=== PATIENT | female | born 1970 | race Caucasian/White ===

== ENCOUNTER 2020-04-11 16:13 | Outpatient (REF) | payer MEDICAID, SELFPAY ==
--- NOTE | 2020-04-11 16:20 | MM_ITS ---
EXAMINATION: MM SCREENING DIGITAL BREAST TOMOSYNTHESIS, BILATERAL CLINICAL INFORMATION: Screening. Asymptomatic. The lifetime risk of breast cancer based on the Tyrer-Cuzick Model is 15%. COMPARISON: Mammography: 03/10/2017, 02/12/2016 TECHNIQUE: Digital breast tomosynthesis is performed in both the craniocaudal and mediolateral oblique views along with computer-aided detection (CAD). Synthesized 2D images are generated from the tomosynthesis. Additional bilateral exaggerated CC views are provided. FINDINGS: There are scattered areas of fibroglandular density (ACR BI-RADS breast composition Category b). There are no significant masses, abnormal calcifications, or other abnormalities. No significant changes. MM/MM tomosynthesis screening BI IMPRESSION: No mammographic evidence of malignancy. ASSESSMENT: BI-RADS 1: Negative RECOMMENDATION: Routine annual mammography screening. This patient's information was entered into a reminder system with a target due date for their next mammogram.
== END 2020-04-11 16:14 | disposition home or self-care (01) ==
LOC: HO.MAMMO 16:13
PROVIDERS: Visit Provider General Practice
DX: Z12.31 Encounter for screening mammogram for malignant neoplasm of breast (principal)
CPT/HCPCS: 77063; 77067

== ENCOUNTER 2020-10-29 17:23 | Inpatient (IN) | payer MEDICAID, SELFPAY ==
--- NOTE | ~2020-10-29 | CT_ITS ---
EXAMINATION: CT HEAD WITHOUT CONTRAST CLINICAL INFORMATION: Altered mental status. Question overdose. COMPARISON: CT head dated 02/11/2019. TECHNIQUE: Contiguous axial imaging was performed from the skull base to vertex without intravenous administration of contrast. This CT examination was performed using dose optimization techniques as appropriate, variously including the following: *Automated exposure control. *Adjustment of mA and/or kV according to patient size (this includes techniques or standardized protocols for targeted exams where dose is matched to indication/reason for exam; i.e. extremities or head). *Use of iterative reconstruction technique. DLP: 559 mGy-cm FINDINGS: No acute intracranial hemorrhage. There is new loss of douglas-white differentiation with parenchymal hypoattenuation throughout the right cerebellum, not seen on the prior examination. Findings are consistent with an age-indeterminate infarct. No abnormal mass effect or midline shift is seen. Chronic right basal ganglia lacunar infarct, unchanged. No extra-axial fluid collections are identified. The ventricles are normal in size. The osseous structures and soft tissues are normal. The mastoid air cells and visualized portions of the paranasal sinuses are well aerated. CT/CT head/brain wo con IMPRESSION: 1. New loss of douglas-white differentiation with parenchymal hypoattenuation throughout the right cerebellum, not seen on the prior examination. Findings are consistent with an age-indeterminate infarct. 2. No acute intracranial hemorrhage or mass effect. This critical result was discussed with Dr. Nash at 7:44 PM on 10/29/2020 and it was ascertained that the content and urgency of the report was understood at the time of direct communication.
--- NOTE | ~2020-10-29 | CT_ITS ---
EXAMINATION: CT ANGIOGRAM HEAD CT ANGIOGRAM NECK CLINICAL INFORMATION: Subacute cerebrovascular accident. COMPARISON: CT head from 10/29/2020. CTA head and neck from 02/13/2019. TECHNIQUE: Initial noncontrast automatic coin machine mechanic imaging of the head and neck was performed. Comparison is made with noncontrast head CT from earlier today. Test bolus sequences followed by intravenous administration 70 mL of Omnipaque 350. Helical imaging was performed in the axial plane from the aortic arch to the skull vertex. Delayed postcontrast imaging of the head was also performed. The data was processed at the ophthalmic medical technologist's workstation for generation of MIP sequences. Angled MIPs and volume rendered reformatted images were also generated at an offline 3D workstation. Stenoses are assessed in accordance with NASCET criteria unless otherwise indicated. This CT examination was performed using dose optimization techniques as appropriate, variously including the following: *Automated exposure control. *Adjustment of mA and/or kV according to patient size (this includes techniques or standardized protocols for targeted exams where dose is matched to indication/reason for exam; i.e. extremities or head). *Use of iterative reconstruction technique. DLP: 1957 mGy-cm FINDINGS: CT Head: Moderately motion degraded exam. Regions of lost funk-white matter differentiation within the right cerebellar hemisphere. There also appears to be a region of lost funk-white matter differentiation within the posterior right parietal lobe. No evidence of hemorrhagic conversion. Chronic encephalomalacia within the right hatch radiata/lentiform nucleus. A few foci of hypoattenuation in the periventricular and deep white matter are consistent with mild microangiopathy. Funk-white matter differentiation is preserved. The ventricles are normal in size and configuration. No evidence for obstructive hydrocephalus. No abnormal mass effect or midline shift. No extra-axial fluid collections. No pathologic intra-axial enhancement. No acute soft tissue or osseous abnormalities. Moderate mucosal thickening of the paranasal sinuses. Multiple prominent odontogenic enamel erosions and periapical lucencies. The mastoid air cells and middle ear cavities are clear. Mild degenerative arthropathy of the temporomandibular joints. CT Neck: There is a 1.7 cm hyperattenuating mass lesion in the superficial lobe of the left parotid gland (1.3 cm in 2019). Otherwise, the thyroid gland and remaining cervical soft tissues are within normal limits. Advanced degenerative disc disease from C4-C7 with disc-osteophyte complex formation. Facet and uncovertebral joint arthropathy leads to osseous encroachment on the neural foramina from C4-C7. CT Upper Chest: Moderate centrilobular emphysema. The visualized upper mediastinum is within normal limits. Neck CTA: Aortic Arch: Normal contour and caliber. Classic 3 vessel branching pattern of the aortic arch. Great Vessel Origins: No significant stenosis of the branch origins. Right Common Carotid Artery: No focal stenosis or occlusion. Cervical Right Internal Carotid Artery: Calcific atherosclerotic disease of the carotid bulb and proximal internal carotid artery causing less than 50% stenosis. Left Common Carotid Artery: No focal stenosis or occlusion. Cervical Left Internal Carotid Artery: Calcific atherosclerotic disease of the carotid bulb and proximal internal carotid artery causing less than 50% stenosis. Cervical Right Vertebral Artery: Co-dominant. No focal stenosis or occlusion. Cervical Left Vertebral Artery: Co-dominant. No focal stenosis or occlusion. Brain CTA: Intracranial Internal Carotid Arteries: Calcific atherosclerotic disease of the intracranial internal carotid arteries without occlusion or flow-limiting stenosis. No focal stenosis or occlusion. Right Anterior Cerebral Artery: Normal A1 segment. Normal opacification of the distal SHANTELL segments. Left Anterior Cerebral Artery: Normal A1 segment. Normal opacification of the distal SHAN[place]LL segments. Anterior Communicating Artery: Normal. Right Middle Cerebral Artery: Normal M1 segment of the MCA without focal stenosis or occlusion. Normal arborization of the distal segments. Left Middle Cerebral Artery: Normal M1 segment of the MCA without focal stenosis or occlusion. Normal arborization of the distal segments. Right Vertebral Artery: Normal V4 segment. Normal opacification of the proximal segments of the posterior inferior cerebellar artery. Left Vertebral Artery: Normal V4 segment. Normal opacification of the proximal segments of the posterior inferior cerebellar artery. Basilar Artery: Normal without focal stenosis or occlusion. Normal appearance of the proximal superior cerebellar arteries. Right Posterior Cerebral Artery: Normal P1 segment. Normal opacification of the distal SHREDDER TENDER segments. Left Posterior Cerebral Artery: The P1 segment is mildly diminutive. origin of the SHREDDER TENDER with robust opacification of the posterior communicating artery. Normal opacification of the distal SHREDDER TENDER segments. Normal opacification of the superior sagittal, straight, transverse, and sigmoid sinuses. CT/CT angio head neck stroke IMPRESSION: 1. Evolving infarcts of the right cerebellar hemisphere and posterior right parietal lobe. No evidence of hemorrhagic conversion. 2. Chronic encephalomalacia within the right hatch radiata/lentiform nucleus. Mild underlying microangiopathy. 3. CTA of the head and neck without proximal occlusion or flow-limiting stenosis. 4. 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 This lesion has increased in size compared to 2019. 5. Advanced odontogenic disease.
--- NOTE | ~2020-10-29 | XR_ITS ---
EXAMINATION: XR CHEST CLINICAL INFORMATION: Leukocytosis COMPARISON: 02/11/2019 TECHNIQUE: Frontal view of the chest was obtained. FINDINGS: No significant abnormality is noted involving the heart, lungs, mediastinum, bony thorax or soft tissues. XR/XR chest 1V IMPRESSION: Unremarkable examination.
--- NOTE | ~2020-10-29 | XR_ITS ---
EXAMINATION: XR ABDOMEN KUB CLINICAL INDICATION: Rule out lungs are metallic foreign body pre-MRI. COMPARISON: None TECHNIQUE: AP view of the abdomen. FINDINGS: There are multiple surgical mayelin seen in the lower retroperitoneum and left pelvis. No radiopaque metallic foreign body seen otherwise. No organomegaly. The bowel gas pattern appears unremarkable. No gross bony abnormality seen. XR/XR KUB IMPRESSION: There are multiple surgical mayelin in the lower retroperitoneum and left pelvis. No visible acute fracture, dislocation or subluxation seen.
[2020-10-29 17:32] VITALS: BP 158/92; PULSE 98; RESP 20; TEMP 36.4; O2SAT 95; BMI 25.0
[2020-10-29 17:35] VITALS: BP 117/87; PULSE 118; O2SAT 96
--- NOTE | 2020-10-29 17:52 | ED_ITS ---
HPI - Overdose General Chief Complaint: Overdose Stated Complaint: Overdose Time Seen by Provider: 10/29/20 17:49 Source: EMS Mode of arrival: EMS Limitations: altered mental status History of Present Illness HPI Narrative: Patient comes to emergency room by EMS. Patient was found unresponsive by the family, given 8 mg of Narcan, patient started waking up. Patient unable to answer any questions. Patient has history of crack use. I have found the scene by EMS. The mother is at bedside. States that she saw her daughter within normal limits at 07:00 this morning, patient asked the mother for 10 dollars. Then the mother so the patient prior to the patient's arrival around 17:00, at home, altered, could not wake her up and called EMS Related Data Allergies Allergy/AdvReac Type Severity Reaction Status Date / Time No Known Allergies Allergy Unverified 02/07/20 15:04 [No Known Allergies*] Review of Systems Review of Systems: Yes Unobtainable due to mental status PMFSH Past Medical History Medical History Alcoholism Cocaine dependence CVA (cerebral vascular accident) Depression Disorder of bone and articular cartilage Hx of ovarian cancer Insomnia Mixed hyperlipidemia Nasal congestion Osteopenia PAF (paroxysmal atrial fibrillation) PTSD (post-traumatic stress disorder) Tobacco abuse Social History Social History Advance Directives: No Advance Directives Information Provided: Yes Physical Exam Vital Signs: Vital Signs: Last Vital Signs Temp 99.7 F 10/29/20 22:00 Pulse 83 10/29/20 22:00 Resp 16 10/29/20 22:00 BP 127/87 10/29/20 22:00 Pulse Ox 96 10/29/20 22:00 Body Mass Index 25.0 Appearance: Alert, altered mental status, not answering any questions, disheveled Eyes: Pupils equal, round and reactive to light. ENT: Pharynx normal. Neck: Normal inspection. Neck supple. No lymph nodes noted. No crepitus CVS: Normal heart rate and rhythm. Pulses normal. Normal S1 and S2 Respiratory: No respiratory distress. Breath sounds normal. No Wheezing. No rales Abdomen: Soft and nontender. No rigidity. No distention Skin: Skin warm and dry. Normal skin color. Normal skin turgor. Extremities: No lower extremity edema. Neuro: Cranial nerves 2-12 grossly intact Course Course Course Narrative: NIH score is difficult to assess. Patient is not following any commands. Patient is awake says she is thirsty with normal speech, otherwise does not talk, does not want to answer any questions. Patient randomly moves in bed, seems to be moving all extremities. Strength cannot be evaluated as patient is not cooperating Patient is outside of the window of treatment. Patient was last seen normal at 07:00, found unconscious/overdosed at 17:00. Patient is being admitted, Dr. Sanchez accepted the patient. 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 Discussed with Dr. Sanchez. Hematology/oncology consult will be obtained in the morning MDM - Overdose Lab Data Result diagrams: 10/29/20 19:10 10/29/20 19:10 Labs: Lab Results 10/29/20 10/29/20 10/29/20 Range/Units 18:58 18:58 19:10 WBC 21.0 H (4.8-10.8) X10*3/uL RBC 4.44 (4.20-5.50) X10*6/uL Hgb 13.2 (12.0-16.0) g/dl Hct 40.1 (37-47) % MCV 90.3 (80-98) fL MCH 29.7 (27.0-33.0) pg MCHC 32.9 (31.0-35.0) g/dl RDW 14.6 (11.0-16.0) % Plt Count 292 (160-400) X10*3/uL MPV 10.6 (9.4-12.3) fL Immature Gran % (Auto) 0.8 H (0.0-0.4) % Neut % (Auto) 89.8 H (45-73) % Lymph % (Auto) 5.6 L (20-40) % [place] % (Auto) 3.6 (2-11) % Eos % (Auto) 0.0 (0-4) % Baso % (Auto) 0.2 (0-2) % Lymph # (Auto) 1.2 (1.2-4.9) X10*3/uL [place] # (Auto) 0.8 (0.1-1.2) X10*3/uL Eos # (Auto) 0.0 (0.0-0.4) X10*3/uL Baso # (Auto) 0.0 (0.0-0.2) X10*3/uL Abs Immat Gran (auto) 0.16 H (0.00-0.03) X10*3/uL Absolute Neuts (auto) 18.8 H (2.0-8.3) X10*3/uL Absolute Nucleated RBC 0.000 (0.0-0.012) X10*3/uL Nucleated RBC % (auto) 0.0 (0.0-0.2) /100WBC Sodium (135-145) mmol/L Potassium (3.3-5.1) mmol/L Chloride (96-108) mmol/L Carbon Dioxide (22-29) mmol/L Anion Gap (12-20) BUN (9-16) mg/dL Creatinine (0.5-1.4) mg/dL Estim Creat Clear Calc Estimated GFR Random Glucose (60-115) mg/dL Calcium (8.4-10.2) mg/dL Total Bilirubin (0.0-1.0) mg/dL Direct Bilirubin (0.0-0.5) mg/dL AST (5-31) U/L ALT (0-31) U/L Alkaline Phosphatase (39-117) U/L Total Protein (6.5-8.0) g/dL Albumin (3.5-5.0) g/dL Urine Color YELLOW Urine Appearance CLOUDY Urine pH 5.5 (5.0-8.0) Ur Specific [place] >= 1.030 H (1.005-1.025) Urine Protein 2+ H (NEG-TRACE) MG/DL Urine Glucose (UA) >=1000 H (NEG) MG/DL Urine Ketones NEG (NEG) MG/DL Urine Blood 3+ H (NEG) Urine Nitrite NEG (NEG) Ur Leukocyte Esterase NEG (NEG) Urine RBC 1-4 (0) /HPF Urine WBC 0 (0-4) /HPF Ur Squamous Epith Cells 1+ /LPF Ur Renal Epithelial Cell TRACE /LPF Urine Bacteria TRACE /LPF Hyaline Casts 0-2 /LPF Urine Mucus TRACE /LPF Urine Opiates Screen Not Detected (Not Detect) Ur Barbiturates Screen Not Detected (Not Detect) Ur Phencyclidine Scrn Not Detected (Not Detect) Ur Amphetamines Screen Not Detected (Not Detect) U Benzodiazepines Scrn Not Detected (Not Detect) Urine Cocaine Screen POSITIVE H (Not Detect) U Marijuana (THC) Screen POSITIVE H (Not Detect) Ethyl Alcohol mg/dL COVID-19 ([facility]) (Negative) COVID-19 Clin Com 10/29/20 10/29/20 10/29/20 Range/Units 19:10 19:10 21:47 WBC (4.8-10.8) X10*3/uL RBC (4.20-5.50) X10*6/uL Hgb (12.0-16.0) g/dl Hct (37-47) % MCV (80-98) fL MCH (27.0-33.0) pg MCHC (31.0-35.0) g/dl RDW (11.0-16.0) % Plt Count (160-400) X10*3/uL MPV (9.4-12.3) fL Immature Gran % (Auto) (0.0-0.4) % Neut % (Auto) (45-73) % Lymph % (Auto) (20-40) % [place] % (Auto) (2-11) % Eos % (Auto) (0-4) % Baso % (Auto) (0-2) % Lymph # (Auto) (1.2-4.9) X10*3/uL [place] # (Auto) (0.1-1.2) X10*3/uL Eos # (Auto) (0.0-0.4) X10*3/uL Baso # (Auto) (0.0-0.2) X10*3/uL Abs Immat Gran (auto) (0.00-0.03) X10*3/uL Absolute Neuts (auto) (2.0-8.3) X10*3/uL Absolute Nucleated RBC (0.0-0.012) X10*3/uL Nucleated RBC % (auto) (0.0-0.2) /100WBC Sodium 142 (135-145) mmol/L Potassium 4.3 (3.3-5.1) mmol/L Chloride 106 (96-108) mmol/L Carbon Dioxide 23 (22-29) mmol/L Anion Gap 17 (12-20) BUN 22 H (9-16) mg/dL Creatinine 1.40 (0.5-1.4) mg/dL Estim Creat Clear Calc 42.2 Estimated GFR 39 Random Glucose 80 (60-115) mg/dL Calcium 9.2 (8.4-10.2) mg/dL Total Bilirubin 0.3 (0.0-1.0) mg/dL Direct Bilirubin 0.2 (0.0-0.5) mg/dL AST 158 H (5-31) U/L ALT 63 H (0-31) U/L Alkaline Phosphatase 112 (39-117) U/L Total Protein 7.0 (6.5-8.0) g/dL Albumin 4.4 (3.5-5.0) g/dL Urine Color Urine Appearance Urine pH (5.0-8.0) Ur Specific [place] (1.005-1.025) Urine Protein (NEG-TRACE) MG/DL Urine Glucose (UA) (NEG) MG/DL Urine Ketones (NEG) MG/DL Urine Blood (NEG) Urine Nitrite (NEG) Ur Leukocyte Esterase (NEG) Urine RBC (0) /HPF Urine WBC (0-4) /HPF Ur Squamous Epith Cells /LPF Ur Renal Epithelial Cell /LPF Urine Bacteria /LPF Hyaline Casts /LPF Urine Mucus /LPF Urine Opiates Screen (Not Detect) Ur Barbiturates Screen (Not Detect) Ur Phencyclidine Scrn (Not Detect) Ur Amphetamines Screen (Not Detect) U Benzodiazepines Scrn (Not Detect) Urine Cocaine Screen (Not Detect) U Marijuana (THC) Screen (Not Detect) Ethyl Alcohol < 10 mg/dL COVID-19 ([facility]) Negative (Negative) COVID-19 Clin Com See Note Imaging Data CT scan - head: Radiologist's impression: INDINGS: No acute intracranial hemorrhage. There is new loss of funk-white differentiation with parenchymal hypoattenuation throughout the right cerebellum, not seen on the prior examination. Findings are consistent with an age-indeterminate infarct. No abnormal mass effect or midline shift is seen. Chronic right basal ganglia lacunar infarct, unchanged. No extra-axial fluid collections are identified. The ventricles are normal in size. The osseous structures and soft tissues are normal. The mastoid air cells and visualized portions of the paranasal sinuses are well aerated. CT/CT head/brain wo con IMPRESSION: 1. New loss of funk-white differentiation with parenchymal hypoattenuation throughout the right cerebellum, not seen on the prior examination. Findings are consistent with an age-indeterminate infarct. 2. No acute intracranial hemorrhage or mass effect. This critical result was discussed with Dr. Nash at 7:44 PM on 10/29/2020 and it was ascertained that the content and urgency of the report was understood at the time of direct communication. CTA head and neck: Radiologist's impression: CT Head: Moderately motion degraded exam. Regions of lost funk-white matter differentiation within the right cerebellar hemisphere. There also appears to be a region of lost funk-white matter differentiation within the posterior right parietal lobe. No evidence of hemorrhagic conversion. Chronic encephalomalacia within the right hatch radiata/lentiform nucleus. A few foci of hypoattenuation in the periventricular and deep white matter are consistent with mild microangiopathy. Funk-white matter differentiation is preserved. The ventricles are normal in size and configuration. No evidence for obstructive hydrocephalus. No abnormal mass effect or midline shift. No extra-axial fluid collections. No pathologic intra-axial enhancement. No acute soft tissue or osseous abnormalities. Moderate mucosal thickening of the paranasal sinuses. Multiple prominent odontogenic enamel erosions and periapical lucencies. The mastoid air cells and middle ear cavities are clear. Mild degenerative arthropathy of the temporomandibular joints. CT Neck: There is a 1.7 cm hyperattenuating mass lesion in the superficial lobe of the left parotid gland (1.3 cm in 2019). Otherwise, the thyroid gland and remaining cervical soft tissues are within normal limits. Advanced degenerative disc disease from C4-C7 with disc-osteophyte complex formation. Facet and uncovertebral joint arthropathy leads to osseous encroachment on the neural foramina from C4-C7. CT Upper Chest: Moderate centrilobular emphysema. The visualized upper mediastinum is within normal limits. Neck CTA: Aortic Arch: Normal contour and caliber. Classic 3 vessel branching pattern of the aortic arch. Great Vessel Origins: No significant stenosis of the branch origins. Right Common Carotid Artery: No focal stenosis or occlusion. Cervical Right Internal Carotid Artery: Calcific atherosclerotic disease of the carotid bulb and proximal internal carotid artery causing less than 50% stenosis. Left Common Carotid Artery: No focal stenosis or occlusion. Cervical Left Internal Carotid Artery: Calcific atherosclerotic disease of the carotid bulb and proximal internal carotid artery causing less than 50% stenosis. Cervical Right Vertebral Artery: Co-dominant. No focal stenosis or occlusion. Cervical Left Vertebral Artery: Co-dominant. No focal stenosis or occlusion. Brain CTA: Intracranial Internal Carotid Arteries: Calcific atherosclerotic disease of the intracranial internal carotid arteries without occlusion or flow-limiting stenosis. No focal stenosis or occlusion. Right Anterior Cerebral Artery: Normal A1 segment. Normal opacification of the distal SHANTELL segments. Left Anterior Cerebral Artery: Normal A1 segment. Normal opacification of the distal SHANTELL segments. Anterior Communicating Artery: Normal. Right Middle Cerebral Artery: Normal M1 segment of the MCA without focal stenosis or occlusion. Normal arborization of the distal segments. Left Middle Cerebral Artery: Normal M1 segment of the MCA without focal stenosis or occlusion. Normal arborization of the distal segments. Right Vertebral Artery: Normal V4 segment. Normal opacification of the proximal segments of the posterior inferior cerebellar artery. Left Vertebral Artery: Normal V4 segment. Normal opacification of the proximal segments of the posterior inferior cerebellar artery. Basilar Artery: Normal without focal stenosis or occlusion. Normal appearance of the proximal superior cerebellar arteries. Right Posterior Cerebral Artery: Normal P1 segment. Normal opacification of the distal TRANSPORTATION CLERK segments. Left Posterior Cerebral Artery: The P1 segment is mildly diminutive. origin of the TRANSPORTATION CLERK with robust opacification of the posterior communicating artery. Normal opacification of the distal TRANSPORTATION CLERK segments. Normal opacification of the superior sagittal, straight, transverse, and sigmoid sinuses. CT/CT angio head neck stroke IMPRESSION: 1. Evolving infarcts of the right cerebellar hemisphere and posterior right parietal lobe. No evidence of hemorrhagic conversion. 2. Chronic encephalomalacia within the right hatch radiata/lentiform nucleus. Mild underlying microangiopathy. 3. CTA of the head and neck without proximal occlusion or flow-limiting stenosis. 4. 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 This lesion has increased in size compared to 2019. 5. Advanced odontogenic disease. ECG Data Attestation: I personally reviewed and interpreted this ECG as follows: (Sinus rhythm, heart rate 79, no ST segment depression or elevation, no T-wave inversion, QTC 433) Critical Care Time Critical Care Time Total Critical Care Time: 50 Discharge Plan Discharge Clinical Impression: Acute CVA (cerebrovascular accident) Patient Disposition: Admitted As Inpatient
--- NOTE | 2020-10-29 18:32 | PC.NURSE ---
JUVENAL MERCADO AWARE OF PATIENT UNCOOPERATIVE WITH BLOOD DRAW .
[2020-10-29 18:45] VITALS: BP 144/93; PULSE 53; RESP 16; TEMP 36.5; O2SAT 99
[2020-10-29 19:07] LABS: Glucose Urine UA >=1000 MG/DL (NEG); Leukocyte Esterase Urine NEG (NEG); Nitrite Urine NEG (NEG); PH 5.5 (5.0-8.0); Specific Gravity - Urine >= 1.030 (1.005-1.025); Urine Blood 3+ (NEG); Urine Ketones NEG (NEG); Urine Protein 2+ MG/DL (NEG-TRACE)
[2020-10-29 19:08] LABS: Appearance Urine CLOUDY; Color Urine YELLOW
[2020-10-29 19:14] LABS: Bacteria Urine TRACE /LPF; Hyaline Casts Urine 0-2 /LPF; Mucus Urine TRACE /LPF; Renal Epithelial Cells Urine TRACE /LPF; Squamous Epithelial Cell Urine 1+ /LPF; WBC Urine 0 /HPF (0-4)
[2020-10-29 19:14] LABS: MANUAL DIFF FLAG NO
[2020-10-29 19:24] LABS: Basophils Percent Auto 0.2 % (0-2); Hematocrit 40.1 % (37-47); Hemoglobin 13.2 g/dl (12.0-16.0); Imm Gran Abs Auto 0.16 X10*3/uL (0.00-0.03); Imm Gran Pct Auto 0.8 % (0.0-0.4); Lymphocytes Absolute Auto 1.2 X10*3/uL (1.2-4.9); Lymphocytes Percent Auto 5.6 % (20-40); Mean Corpuscular HGB Conc 32.9 g/dl (31.0-35.0); Mean Corpuscular Hemoglobin 29.7 pg (27.0-33.0); Mean Corpuscular Volume 90.3 fL (80-98); Mean Platelet Volume 10.6 fL (9.4-12.3); Monocytes Absolute Auto 0.8 X10*3/uL (0.1-1.2); Monocytes Percent Auto 3.6 % (2-11); Neutrophils Absolute Auto 18.8 X10*3/uL (2.0-8.3); Neutrophils Percent Auto 89.8 % (45-73); Platelet Count 292 X10*3/uL (160-400); Red Blood Count 4.44 X10*6/uL (4.20-5.50); Red Cell Distribution Width 14.6 % (11.0-16.0)
[2020-10-29 19:34] LABS: Amphetamine Screen Urine Not Detected (Not Detect); Barbiturates, Urine Not Detected (Not Detect); Benzodiazepines Screen Urine Not Detected (Not Detect); Cannabinoid Screen Urine POSITIVE (Not Detect); Cocaine Screen Urine POSITIVE (Not Detect); Opiate Screen Urine Not Detected (Not Detect); Phencyclidine Screen Urine Not Detected (Not Detect)
[2020-10-29 19:41] LABS: Ethanol < 10 mg/dL
[2020-10-29 19:52] LABS: Alanine Aminotransferase 63 U/L (0-31); Albumin Level 4.4 g/dL (3.5-5.0); Alkaline Phosphatase 112 U/L (39-117); Anion Gap 17 (12-20); Aspartate Amino Transferase 158 U/L (5-31); Bilirubin Direct 0.2 mg/dL (0.0-0.5); Bilirubin Total 0.3 mg/dL (0.0-1.0); Blood Urea Nitrogen 22 mg/dL (9-16); Calcium 9.2 mg/dL (8.4-10.2); Carbon Dioxide 23 mmol/L (22-29); Chloride 106 mmol/L (96-108); Creatinine Clr Calc Pharmacy 42.2; Estimated Glomerular Filt Rate 39; Glucose Random 80 mg/dL (60-115); Potassium 4.3 mmol/L (3.3-5.1); Sodium 142 mmol/L (135-145)
--- NOTE | 2020-10-29 20:08 | PC.NURSE ---
PT WHEELED TO BR TO URINATE, PT ABLE TO STAND W/ 1 PERSON ASSIST, UNSTEADY ON FEET. PT BACK TO BED W/OUT DIFFICULTY. PT HAS NOT RESPONDED TO ANY QUESTIONS BY THIS RN SINCE ARRIVAL, WILL OCCASIONALLY MAKE CLEAR APPROPRIATE STATEMENTS BUT WILL NOT RESPOND IN KIND, WILL LOOK AT THIS RN AND MAKE EYE CONTACT BUT NO FURTHER INTERACTION. IV ESTABLIHSED, PT TO CT.
[2020-10-29] MEDS: iohexoL 350 MG/ML 100 ML INFUS..BTL IV (20:27)
--- NOTE | 2020-10-29 21:10 | ECG_ITS ---
Test Reason : NEURO Blood Pressure : / mmHG Vent. Rate : 079 BPM Atrial Rate : 079 BPM P-R Int : 144 ms QRS Dur : 080 ms QT Int : 378 ms P-R-T Axes : 072 071 053 degrees QTc Int : 433 ms Normal sinus rhythm Normal ECG When compared with ECG of 11-FEB-2019 11:37, T wave amplitude has increased in Lateral leads Referred By: Candy Nash Electronically Signed By:GOSIA CARDONA MD
[2020-10-29 22:00] VITALS: BP 127/87; PULSE 83; RESP 16; TEMP 37.6; O2SAT 96
[2020-10-29 22:30] LABS: COVID-19 Test Negative (Negative); IDNOW Serial# 9DD0AD1C
[2020-10-30] VITALS (7 sets, daily range): BP systolic 100–125; BP diastolic 52–72; PULSE 48–76; RESP 18–20; TEMP 36.4–37.2; O2SAT 92–97
--- NOTE | 2020-10-30 | ECG_ITS ---
Test Reason : ELEVATED TROP Blood Pressure : / mmHG Vent. Rate : 048 BPM Atrial Rate : 048 BPM P-R Int : 136 ms QRS Dur : 090 ms QT Int : 490 ms P-R-T Axes : 044 056 044 degrees QTc Int : 437 ms Sinus bradycardia Otherwise normal ECG When compared with ECG of 30-OCT-2020 01:40, Vent. rate has decreased BY 25 BPM Referred By: Geronimo Mcmahon Electronically Signed By:GOSIA CARDONA MD
--- NOTE | 2020-10-30 00:11 | PM.IMHP ---
History of Present Illness Date of Service: 10/30/20 Chief Complaint: Brief unresponsive episode 50-year-old female with a past medical history of hypertension, hyperlipidemia, paroxysmal AFib, history of CVA, polysubstance abuse, cocaine abuse, alcohol abuse, anxiety, depression, PTSD, tobacco dependence presented to the hospital with a chief complaint of brief unresponsive episode. Patient is a poor historian, not answering questions, follows simple commands, moves all extremities equally, patient was requesting water to the nurse, passed dysphagia screen and has been drinking water in the ER; per RN patient was able to stand up and was taken to the bathroom. Are now also reported that patient has not been answering his questions but able to understand simple commands. Reportedly as per the family patient has these episodes of not talking which usually last for some time. I spoke to the patient's mother who mentioned that patient likely has been using tracks but unsure which drug she is using. Mentioned that this morning patient was noted sleepy and later in the evening when she went to woke up the patient she was not responding subsequently EMS was called and brought her to the ER for further evaluation. Patient's mom did not report that patient mentioned any kind of chest pain lightheadedness dizziness focal weakness. Mentioned that patient usually eats less at home. Review of systems unable to obtain given above concerns. ER course: Per ER team patient does not talking well and less cooperative exam; reported that EMS gave her Narcan. Patient was briefly answering yes or no to most of the questions. U tox positive for cocaine. CT head showed right cerebellar evaluating infarct. Also noted parotid gland swelling. Last well known was around 7:00 a.m. in the morning on 10/29/2020. Patient was given aspirin. Admitted for further management. PENDING SALE TO [facility] Medical History Alcoholism Cocaine dependence CVA (cerebral vascular accident) Depression Disorder of bone and articular cartilage Hx of ovarian cancer Insomnia Mixed hyperlipidemia Nasal congestion Osteopenia PAF (paroxysmal atrial fibrillation) PTSD (post-traumatic stress disorder) Tobacco abuse Social History Household Members: Unknown / Unable to assess Housing: Unknown / Unable to assess Unable to assess alcohol history related to: Unknown and Refusing to respond Patient Tobacco Use Status: Tobacco use Unknown Substance Use Type: Crack/Cocaine and Heroin service: No Current occupational status: unemployed Meds Allergies Allergy/AdvReac Type Severity Reaction Status Date / Time No Known Allergies Allergy Unverified 02/07/20 15:04 [No Known Allergies*] Active Medications: Current Medications Generic Name Dose Route Start Last Admin Trade Name Freq PRN Reason Stop Dose Admin Acetaminophen 650 mg 10/29/20 23:39 Acetaminophen 325 Mg Tablet PO Q6H PRN Pain, Mild (Pain Scale 1-3) Aspirin 81 mg 10/30/20 09:00 Aspirin 81 Mg Tab.Chew PO DAILY [facility] Atorvastatin Calcium 80 mg 10/30/20 09:00 Atorvastatin Calcium 80 Mg Tablet PO DAILY [facility] Atorvastatin Calcium 10 mg 10/30/20 09:00 Atorvastatin Calcium 10 Mg Tablet PO DAILY [facility] Diltiazem HCl 30 mg 10/30/20 09:00 Diltiazem Hcl 30 Mg Tablet PO DAILY [facility] Protocol Fluoxetine HCl 20 mg 10/30/20 09:00 Fluoxetine Hcl 20 Mg Capsule PO DAILY [facility] Folic Acid 1 mg 10/30/20 09:00 Folic Acid 1 Mg Tablet PO DAILY [facility] Heparin Sodium (Porcine) 5,000 unit 10/29/20 23:45 Heparin Sodium,Porcine 5,000 Unit/Ml Vial SUBCUT Q8H [facility] Dextrose/Sodium Chloride 1,000 mls @ 100 mls/hr 10/29/20 23:45 D51/2ns IVCONT .Q10H [facility] Lisinopril 5 mg 10/30/20 09:00 Lisinopril 5 Mg Tablet PO DAILY [facility] Protocol Magnesium Hydroxide 30 ml 10/29/20 23:39 Milk Of Magnesia 30 Ml Oral.Susp PO DAILY PRN Constipation Quetiapine Fumarate 150 mg 10/30/20 21:00 Quetiapine Fumarate 50 Mg Tablet PO BEDTIME [facility] Risperidone 4 mg 10/30/20 09:00 Risperidone 2 Mg Tablet PO DAILY [facility] Senna 17.2 mg 10/29/20 23:39 Sennosides 8.6 Mg Tablet PO BEDTIME PRN Constipation Sodium Chloride 3 ml 10/30/20 00:00 0.9 % Sodium Chloride Flush 3 Ml Syringe IVFLUSH QSHIFT [facility] Home Medications Medication Instructions Recorded Confirmed Last Taken Type atorvastatin 1 tab PO DAILY 10/29/20 10/29/20 Unknown History diltiazem HCl 1 tab PO DAILY 10/29/20 10/29/20 Unknown History fluoxetine 1 cap PO DAILY 10/29/20 10/29/20 Unknown History folic acid 1 tab PO DAILY 10/29/20 10/29/20 Unknown History lisinopril 1 tab PO DAILY 10/29/20 10/29/20 Unknown History quetiapine 1.5 tab PO BEDTIME 10/29/20 10/29/20 Unknown History risperidone 1 tab PO DAILY 10/29/20 10/29/20 Unknown History trazodone 1.5 - 2 tab PO BEDTIME 10/29/20 10/29/20 Unknown History Physical Exam Vital Signs and Narrative: Vital Signs: Last Vital Signs Temp 99.7 F 10/29/20 22:00 Pulse 83 10/29/20 22:00 Resp 16 10/29/20 22:00 BP 127/87 10/29/20 22:00 Pulse Ox 96 10/29/20 22:00 Body Mass Index 25.0 Gen: Appears be in no acute distress HEENT: NCAT, Moist mucosa. Pulmonary: Vesicular breath sounds, fair air entry CVS: Normal S1-S2 Abdomen: BS+, Soft, Nontender Extremities: Warm well perfused Neuro: Alert and awake. Limited neurological exam. Moves all extremities equally. Follow simple commands. Unable to fall from [id number] or [id number] test. Unable to perform gait test. Results Labs CBC and Chem 7: 10/31/20 05:49 10/31/20 05:49 Labs: Laboratory Results - last 24 hr 10/29/20 10/29/20 10/29/20 18:58 18:58 19:10 MCV 90.3 MCH 29.7 MCHC 32.9 RDW 14.6 Plt Count 292 MPV 10.6 Immature Gran % (Auto) 0.8 H Neut % (Auto) 89.8 H Lymph % (Auto) 5.6 L [place] % (Auto) 3.6 Eos % (Auto) 0.0 Baso % (Auto) 0.2 Lymph # (Auto) 1.2 [place] # (Auto) 0.8 Eos # (Auto) 0.0 Baso # (Auto) 0.0 Abs Immat Gran (auto) 0.16 H Absolute Neuts (auto) 18.8 H Absolute Nucleated RBC 0.000 Nucleated RBC % (auto) 0.0 Anion Gap Estim Creat Clear Calc Estimated GFR Random Glucose Calcium Total Bilirubin Direct Bilirubin AST ALT Alkaline Phosphatase Total Protein Albumin Urine Color YELLOW Urine Appearance CLOUDY Urine pH 5.5 Ur Specific [place] >= 1.030 H Urine Protein 2+ H Urine Glucose (UA) >=1000 H Urine Ketones NEG Urine Blood 3+ H Urine Nitrite NEG Ur Leukocyte Esterase NEG Urine RBC 1-4 Urine WBC 0 Ur Squamous Epith Cells 1+ Ur Renal Epithelial Cell TRACE Urine Bacteria TRACE Hyaline Casts 0-2 Urine Mucus TRACE Urine Opiates Screen Not Detected Ur Barbiturates Screen Not Detected Ur Phencyclidine Scrn Not Detected Ur Amphetamines Screen Not Detected U Benzodiazepines Scrn Not Detected Urine Cocaine Screen POSITIVE H U Marijuana (THC) Screen POSITIVE H Ethyl Alcohol COVID-19 ([facility]) COVID-19 Clin Com 10/29/20 10/29/20 10/29/20 19:10 19:10 21:47 MCV MCH MCHC RDW Plt Count MPV Immature Gran % (Auto) Neut % (Auto) Lymph % (Auto) [place] % (Auto) Eos % (Auto) Baso % (Auto) Lymph # (Auto) [place] # (Auto) Eos # (Auto) Baso # (Auto) Abs Immat Gran (auto) Absolute Neuts (auto) Absolute Nucleated RBC Nucleated RBC % (auto) Anion Gap 17 Estim Creat Clear Calc 42.2 Estimated GFR 39 Random Glucose 80 Calcium 9.2 Total Bilirubin 0.3 Direct Bilirubin 0.2 AST 158 H ALT 63 H Alkaline Phosphatase 112 Total Protein 7.0 Albumin 4.4 Urine Color Urine Appearance Urine pH Ur Specific [place] Urine Protein Urine Glucose (UA) Urine Ketones Urine Blood Urine Nitrite Ur Leukocyte Esterase Urine RBC Urine WBC Ur Squamous Epith Cells Ur Renal Epithelial Cell Urine Bacteria Hyaline Casts Urine Mucus Urine Opiates Screen Ur Barbiturates Screen Ur Phencyclidine Scrn Ur Amphetamines Screen U Benzodiazepines Scrn Urine Cocaine Screen U Marijuana (THC) Screen Ethyl Alcohol < 10 COVID-19 ([facility]) Negative COVID-19 Clin Com See Note Imaging Radiologist's Impressions: Impressions Head CT 10/29/20 17:53 IMPRESSION: 1. New loss of douglas-white differentiation with parenchymal hypoattenuation throughout the right cerebellum, not seen on the prior examination. Findings are consistent with an age-indeterminate infarct. 2. No acute intracranial hemorrhage or mass effect. This critical result was discussed with Dr. Nash at 7:44 PM on 10/29/2020 and it was ascertained that the content and urgency of the report was understood at the time of direct communication. Chest X-Ray 10/29/20 19:45 IMPRESSION: Unremarkable examination. Head/Neck CTA 10/29/20 19:49 IMPRESSION: 1. Evolving infarcts of the right cerebellar hemisphere and posterior right parietal lobe. No evidence of hemorrhagic conversion. 2. Chronic encephalomalacia within the right hatch radiata/lentiform nucleus. Mild underlying microangiopathy. 3. CTA of the head and neck without proximal occlusion or flow-limiting stenosis. 4. 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 This lesion has increased in size compared to 2019. 5. Advanced odontogenic disease. Assessment and Plan (1) Acute CVA (cerebrovascular accident): Status: Acute 50-year-old female with a past medical history of hypertension, hyperlipidemia, history of CVA, anxiety, depression, PTSD, polysubstance abuse, alcohol abuse, cocaine dependence, paroxysmal AFib, tobacco dependence presented to the hospital with a chief complaint of brief unresponsive episode. Brief unresponsive episode: Patient is currently alert and awake. Able to move all extremities equally. Passed the dysphagia screen-drinking water in the ER. Acute cerebellar CVA: No evidence of hemorrhage on the CT scan. Patient given aspirin in the ER. Will continue aspirin statin. Patient out of the window for tPA. PT/OT/speech and swallow eval. Echocardiogram with bubble study. Neurology consult. History of paroxysmal AFib: Unclear if the patient is taking Eliquis. Last refill was in May for 30 days. Patient's mom is unsure. Cardiology consult High troponin: likely from Cocaine abuse vs Demand; pt denies chest; EKG non ischemic; Troponin 306-->513; spoke to Dr Milton; less likely candidate for Heparin drip due to acute stroke; Echo recommended. Polysubstance abuse: dairy worker consult History of hypertension/hyperlipidemia: Continue home medications. Parotid gland swelling: Concern for neoplasm. Will consult Oncology for further recommendations. DVT prophylaxis: SCD boots Code status: Full code
[2020-10-30] MEDS: Dextrose 5 % and 0.45 % NaCl 1,000 ML 100 ML IVCONT ×2 (00:35→02:23)
[2020-10-30] MEDS: Heparin Sodium,Porcine 5,000 UNIT/ML VIAL 5000 UNIT SUBCUT ×2 (00:35→09:11)
[2020-10-30 01:07] LABS: Troponin-I High Sensitivity 306.5 ng/L (<3.5-17.0)
[2020-10-30 01:53] LABS: Troponin-I High Sensitivity 513.2 ng/L (<3.5-17.0)
[2020-10-30 03:54] LABS: MANUAL DIFF FLAG NO
[2020-10-30 04:00] LABS: Basophils Percent Auto 0.1 % (0-2); Eosinophils Percent Auto 0.1 % (0-4); Hematocrit 35.6 % (37-47); Hemoglobin 11.8 g/dl (12.0-16.0); Imm Gran Abs Auto 0.06 X10*3/uL (0.00-0.03); Imm Gran Pct Auto 0.4 % (0.0-0.4); Lymphocytes Absolute Auto 2.1 X10*3/uL (1.2-4.9); Mean Corpuscular HGB Conc 33.1 g/dl (31.0-35.0); Mean Corpuscular Hemoglobin 29.8 pg (27.0-33.0); Mean Corpuscular Volume 89.9 fL (80-98); Mean Platelet Volume 10.8 fL (9.4-12.3); Monocytes Absolute Auto 0.9 X10*3/uL (0.1-1.2); Monocytes Percent Auto 6.8 % (2-11); Neutrophils Absolute Auto 10.7 X10*3/uL (2.0-8.3); Neutrophils Percent Auto 77.6 % (45-73); Platelet Count 258 X10*3/uL (160-400); Red Blood Count 3.96 X10*6/uL (4.20-5.50); Red Cell Distribution Width 14.6 % (11.0-16.0); White Blood Count 13.8 X10*3/uL (4.8-10.8)
[2020-10-30 04:25] LABS: Anion Gap 14 (12-20); Blood Urea Nitrogen 17 mg/dL (9-16); Calcium 8.9 mg/dL (8.4-10.2); Carbon Dioxide 24 mmol/L (22-29); Chloride 102 mmol/L (96-108); Creatinine Clr Calc Pharmacy 69.6; Estimated Glomerular Filt Rate > 60; Glucose Random 128 mg/dL (60-115); Potassium 3.5 mmol/L (3.3-5.1); Sodium 136 mmol/L (135-145)
[2020-10-30 04:31] LABS: Troponin-I High Sensitivity 808.8 ng/L (<3.5-17.0)
[2020-10-30 07:09] LABS: Glucose, Whole Blood 164 mg/dL (60-115)
[2020-10-30 07:25] LABS: Cholesterol 135 mg/dL; HDL Cholesterol 31 mg/dL; LDL Cholesterol Calculated 75 mg/dl; Triglycerides 147 mg/dL
--- NOTE | 2020-10-30 07:30 | CA_ITS ---
Transthoracic Echocardiogram Patient (Last, First, Middle): Cari Sánchez M Gender: Female Date of : 1970 Age: 50 Procedure Date: 10/30/2020 Procedure Type: Transthoracic Echocardiogram Location: [facility] [place] Height: 165.1 cm Weight: 68.04 kg BSA: 1.75 m2 Heart Rate: bpm BP: 115 / 63 mmHg Sheltered Workshop Worker: [facility] MD: Phill Sanchez MD [employer] Cutter: Josue Milton MD Symptoms: CVA; echo with Bubble Study Quality: Good ECG Rhythm: Sinus Conclusions: - Essentially normal study Findings Left Ventricle Normal left ventricular size, thickness, and systolic function. The visually estimated ejection fraction is between 55-60%. Diastolic function is normal for age. Right Ventricle Normal right ventricular cavity size and systolic function. Atria The left atrium is likely dilated. There is no evidence of interatrial shunt by agitated saline. The right atrium is normal in size. Aortic Valve Normal aortic valve structure and function. There is no aortic valve stenosis. There is no aortic valve regurgitation. Mitral Valve Normal mitral valve structure and function. There is trace mitral valve regurgitation. There is no mitral valve stenosis. Pulmonic Valve The pulmonic valve is likely normal. Tricuspid Valve Normal tricuspid valve structure. There is trace tricuspid valve regurgitation. The right ventricular systolic pressure is normal. The right ventricular systolic pressure is 28 mmHg. Normal right atrial pressure. There is no evidence of pulmonary hypertension. Great Vessels All visible segments of the aorta are normal in size. The pulmonary artery was not well visualized. Venous The inferior vena cava is normal in size and collapses greater than 50% with inspiration. Pericardium/Pleural There is no evidence of pericardial effusion. Prior Study Comparison No significant change compared to prior study dated: 02/12/2019. Measurements 2D Linear Measurements RVIDd: 3.54 RVIDd Index: 2.02 IVSd: 0.85 0.6-0.9/0.6-1.0 cm LVIDd: 4.97 3.9-5.3/4.2-5.9 cm LVIDd Index: 2.84 2.4-3.2/2.2-3.1 cm/m2 LVIDs: 3.47 2.0-3.6 cm LVPWd: 0.81 0.7-1.1 cm Ao Root: 2.90 2.1-3.5 cm LA Diam: 4.10 2.7-3.8/3.0-4.0 cm LAIDs Index: 2.34 1.5-2.3 cm/m2 LV Mass: 175.42 67-162/88-224 g LV Mass Index: 100.24 43-95/49-115 g/m2 LVOT Diam: 2.10 3.0+(-)1.3 cm 2D Systolic Function EF 4C: 52.70 >55% EF 2C: 61.20 >55% EF BiP: 58.40 >55% Mitral Valve MV Pk E: 1.08 MV PK A: 0.52 MV Decel Time: 299.00 E/A: 2.10 E'Lateral: 12.00 E'Medial: 9.36 E/E' Med: 11.50 E/E' Lat: 9.00 Aortic Valve AoV Pk Terrell: 1.57 AoV Mn Terrell: 1.04 AoV VTI: 0.32 AoV Pk Grad: 10.00 Aov Mn Grad: 5.00 AMOL Cont.VTI: 2.57 LVOT LVOT Pk Terrell: 1.17 LVOT Mn Terrell: 0.72 LVOT VTI: 0.24 LVOT Pk Grad: 5.00 LVOT Mn Grad: 3.00 LVOT Diam: 2.10 LVOT Area: 3.46 Diastolic Function MV Pk E: 1.08 MV Pk A: 0.52 E/A: 2.10 E'Medial: 9.36 E/E' Med: 11.50 E' Laterial: 12.00 E/E' Lat: 9.00 Tricuspid Valve TR Pk Terrell: 2.51 TR Pk Grad: 25.00 RA Press: 3.00 RVSP: 28.00 Great Vessels Aorta Ao Root-2D: 2.90 2.0-3.7 cm Ao Asc: 3.20 2.1-3.4 cm Ao Arch: 3.10 Updated in Other Vendor System with Status of Final Josue Milton MD electronically signed on 10/30/2020 3:16:13 PM with status of Final
[2020-10-30] MEDS: Atorvastatin Calcium 80 MG TABLET PO (09:11)
[2020-10-30] MEDS: FLUoxetine HCl 20 MG CAPSULE PO (09:11)
[2020-10-30] MEDS: Folic Acid 1 MG TABLET PO (09:12)
[2020-10-30] MEDS: risperiDONE 2 MG TABLET 4 MG PO (09:12)
[2020-10-30] MEDS: 0.9 % Sodium Chloride Flush 3 ML SYRINGE IVFLUSH ×2 (09:13→17:13)
--- NOTE | 2020-10-30 09:59 | HO.PM.IMPN ---
Subjective Subjective Date of Service: 10/30/20 Interval History: no residual weakness, no complaints Cardiovascular Cardiovascular: Reports no additional cardiovascular complaints Gastrointestinal Gastrointestinal: Reports no additional gastrointestinal complaints Physical Exam Vital Signs: Vital Signs: Last Vital Signs Temp 98.2 F 10/30/20 07:19 Pulse 67 10/30/20 07:19 Resp 18 10/30/20 07:19 BP 100/53 L 10/30/20 07:19 Pulse Ox 93 10/30/20 07:19 Body Mass Index 25.0 General: AO X 3, no acute distress, hard of hearing Resp: CTA bilateral CVS: S1,S2,RRR GI: soft, non tender, non distended Neuro: motor grossly intact Psych: appropriate affect Objective Data Current Medications Generic Name Dose Route Start Last Admin Trade Name Freq PRN Reason Stop Dose Admin Acetaminophen 650 mg 10/29/20 23:39 Acetaminophen 325 Mg Tablet PO Q6H PRN Pain, Mild (Pain Scale 1-3) Aspirin 81 mg 10/30/20 09:00 Aspirin 81 Mg Tab.Chew PO DAILY [facility] Atorvastatin Calcium 80 mg 10/30/20 09:00 10/30/20 09:11 Atorvastatin Calcium 80 Mg Tablet PO 80 mg DAILY [facility] Administration Fluoxetine HCl 20 mg 10/30/20 09:00 10/30/20 09:11 Fluoxetine Hcl 20 Mg Capsule PO 20 mg DAILY [facility] Administration Folic Acid 1 mg 10/30/20 09:00 10/30/20 09:12 Folic Acid 1 Mg Tablet PO 1 mg DAILY [facility] Administration Heparin Sodium (Porcine) 5,000 unit 10/29/20 23:45 10/30/20 09:11 Heparin Sodium,Porcine 5,000 Unit/Ml Vial SUBCUT 5,000 unit Q8H [facility] Administration Dextrose/Sodium Chloride 1,000 mls @ 100 mls/hr 10/29/20 23:45 10/30/20 02:23 D51/2ns IVCONT 100 mls/hr .Q10H [facility] Administration Magnesium Hydroxide 30 ml 10/29/20 23:39 Milk Of Magnesia 30 Ml Oral.Susp PO DAILY PRN Constipation Quetiapine Fumarate 150 mg 10/30/20 21:00 Quetiapine Fumarate 50 Mg Tablet PO BEDTIME [facility] Risperidone 4 mg 10/30/20 09:00 10/30/20 09:12 Risperidone 2 Mg Tablet PO 4 mg DAILY [facility] Administration Senna 17.2 mg 10/29/20 23:39 Sennosides 8.6 Mg Tablet PO BEDTIME PRN Constipation Sodium Chloride 3 ml 10/30/20 00:00 10/30/20 09:13 0.9 % Sodium Chloride Flush 3 Ml Syringe IVFLUSH 3 ml QSHIFT [facility] Administration Labs CBC & Chem 7: 10/30/20 03:49 10/30/20 03:49 Assessment and Plan (1) Acute CVA (cerebrovascular accident): Status: Acute (2) NSTEMI (non-ST elevated myocardial infarction): Status: Acute Assessment and Plan: 50F presented with ams, found to have acute CVA and NSTEMI toxic encephalopathy due to opioid overdose resolved care team eval acute right cerebellar hemisphere and posterior right parietal lobe infarcts asa, statin (increased to high potency), neuro eval, echo hold bp meds NSTEMI cva related, vs takatsubo, vs cocaine follow up cardiology, echo, repeat troponin 1.7cm left parotid mass suspicious for neoplasm oncology eval alcohol dependence CIWA, no evidence of withdrawl at this time elevated LFTS could be alcohol related check hepatitis panel pafib now sinus bradycardia unclear if taking eliquis, patient states today that she is, appears not to have filled since may 2020 will hold cardizem for permissive htn psych disorder seroquel, risperdal
[2020-10-30] MEDS: Aspirin 81 MG TAB.CHEW PO (10:10)
--- NOTE | 2020-10-30 11:03 | MHC.SLORD ---
Speech Language Pathology Order Status: Order for speech evaluation received. ENVIRONMENTAL OFFICER attempted to see patient this morning, but patient was off floor for ECHO. ENVIRONMENTAL OFFICER will return this afternoon.
[2020-10-30 11:26] LABS: Glucose, Whole Blood 112 mg/dL (60-115)
--- NOTE | 2020-10-30 11:26 | P.CONCA_ITS ---
History of Present Illness History of Present Illness Date of Service: 10/30/20 Requesting physician: Phill Sanchez Consult reason: troponin elevation Chief complaint: Unresponsive episode Narrative: I was requested to see Cari in cardiology consultation today for recurrent stroke and elevated troponin. Patient is a poor historian, she is hard of hearing, however she came to the hospital with suspected loss of consciousness. There was no reported chest pain. Urine toxicology is positive for cocaine. Patient is on Eliquis for her paroxysmal atrial fibrillation, however there is concern about compliance issue. On asking the patient she says she takes Eliquis maybe once a day. Not sure when the last dosing of it was. Her imaging shows new evidence of right cerebellar and right parietal lobe CVA. She has prior history of CVA in the past. Since admission initially she was noted to be hypertensive, however blood pressure has now in systolic 100 range. She is also bradycardic with heart rate of 47. She has prior history of bradycardia. She denies any symptoms of lightheadedness. No syncope at home. There is no reported focal neurologic deficit. She denies any chest pain at current time. Troponin noted to be rising. EKG on admission shows normal sinus rhythm with no acute ST T wave changes. Repeat EKG shows sinus bradycardia with normal EKG. Review of system is very difficult to obtain from this patient. Review of Systems Review of Systems: Yes Unobtainable due to mental status PMFSH Past Medical History Medical History Alcoholism Cocaine dependence CVA (cerebral vascular accident) Depression Disorder of bone and articular cartilage Hx of ovarian cancer Insomnia Mixed hyperlipidemia Nasal congestion Osteopenia PAF (paroxysmal atrial fibrillation) PTSD (post-traumatic stress disorder) Tobacco abuse Social History Social History Household Members: Unknown / Unable to assess Housing: Unknown / Unable to assess Unable to assess alcohol history related to: Unknown and Refusing to respond Patient Tobacco Use Status: Tobacco use Unknown Use of substances other than those prescribed or required for medical reasons: Unknown Substance Use Type: Crack/Cocaine and Heroin Last Used Substance: Unknown Advance Directives: No Advance Directives Information Provided: Yes Do you have thoughts of harming others: None Do you have a plan to hurt others: No Plan Recently lost weight without trying: Unsure Patient : No : No Poor oral hygiene: No Meds Allergies Allergy/AdvReac Type Severity Reaction Status Date / Time No Known Allergies Allergy Unverified 02/07/20 15:04 [No Known Allergies*] Active Medications: Current Medications Generic Name Dose Route Start Last Admin Trade Name Freq PRN Reason Stop Dose Admin Acetaminophen 650 mg 10/29/20 23:39 Acetaminophen 325 Mg Tablet PO Q6H PRN Pain, Mild (Pain Scale 1-3) Aspirin 81 mg 10/30/20 09:00 10/30/20 10:10 Aspirin 81 Mg Tab.Chew PO 81 mg DAILY DIANA Administration Atorvastatin Calcium 80 mg 10/30/20 09:00 10/30/20 09:11 Atorvastatin Calcium 80 Mg Tablet PO 80 mg DAILY DIANA Administration Fluoxetine HCl 20 mg 10/30/20 09:00 10/30/20 09:11 Fluoxetine Hcl 20 Mg Capsule PO 20 mg DAILY DIANA Administration Folic Acid 1 mg 10/30/20 09:00 10/30/20 09:12 Folic Acid 1 Mg Tablet PO 1 mg DAILY DIANA Administration Heparin Sodium (Porcine) 5,000 unit 10/29/20 23:45 10/30/20 09:11 Heparin Sodium,Porcine 5,000 Unit/Ml Vial SUBCUT 5,000 unit Q8H DIANA Administration Magnesium Hydroxide 30 ml 10/29/20 23:39 Milk Of Magnesia 30 Ml Oral.Susp PO DAILY PRN Constipation Quetiapine Fumarate 150 mg 10/30/20 21:00 Quetiapine Fumarate 50 Mg Tablet PO BEDTIME DIANA Risperidone 4 mg 10/30/20 09:00 10/30/20 09:12 Risperidone 2 Mg Tablet PO 4 mg DAILY DIANA Administration Senna 17.2 mg 10/29/20 23:39 Sennosides 8.6 Mg Tablet PO BEDTIME PRN Constipation Sodium Chloride 3 ml 10/30/20 00:00 10/30/20 09:13 0.9 % Sodium Chloride Flush 3 Ml Syringe IVFLUSH 3 ml QSHIFT DIANA Administration Home Medications Medication Instructions Recorded Confirmed Last Taken Type atorvastatin 1 tab PO DAILY 10/29/20 10/29/20 Unknown History diltiazem HCl 1 tab PO DAILY 10/29/20 10/29/20 Unknown History fluoxetine 1 cap PO DAILY 10/29/20 10/29/20 Unknown History folic acid 1 tab PO DAILY 10/29/20 10/29/20 Unknown History lisinopril 1 tab PO DAILY 10/29/20 10/29/20 Unknown History quetiapine 1.5 tab PO BEDTIME 10/29/20 10/29/20 Unknown History risperidone 1 tab PO DAILY 10/29/20 10/29/20 Unknown History trazodone 1.5 - 2 tab PO BEDTIME 10/29/20 10/29/20 Unknown History Physical Exam Vital Signs: Vital Signs: Last Vital Signs Temp 97.6 F 10/30/20 11:22 Pulse 48 L 10/30/20 11:22 Resp 18 10/30/20 11:22 BP 107/58 L 10/30/20 11:22 Pulse Ox 97 10/30/20 11:22 Body Mass Index 25.0 Const: General: cooperative, comfortable, no acute distress, alert and awake Nutritional Appearance: average body habitus HENMT: Head: Yes normocephalic and Yes atraumatic Neck: Neck: Yes trachea midline, Yes supple and Yes no JVD Carotids: no bruits Resp: Effort & Inspection: normal respiratory effort Auscultation: clear to auscultation bilaterally Cardio: Jugular venous distension: no JVD Palpation: normal PMI Rate: regular rate Rhythm: regular rhythm Heart sounds: S1 normal heart sound present and S2 normal heart sound present GI: Auscultation: normal bowel sounds Skin: General skin exam: no rashes or lesions noted Extrem: General: Yes no clubbing, cyanosis or edema Results Labs and Meds Result diagrams: 10/30/20 03:49 10/30/20 03:49 Lab results: Laboratory Results - last 24 hr 10/29/20 10/29/20 10/29/20 18:58 18:58 19:10 WBC 21.0 H RBC 4.44 Hgb 13.2 Hct 40.1 MCV 90.3 MCH 29.7 MCHC 32.9 RDW 14.6 Plt Count 292 MPV 10.6 Immature Gran % (Auto) 0.8 H Neut % (Auto) 89.8 H Lymph % (Auto) 5.6 L Candler % (Auto) 3.6 Eos % (Auto) 0.0 Baso % (Auto) 0.2 Lymph # (Auto) 1.2 Cand[place] # (Auto) 0.8 Eos # (Auto) 0.0 Baso # (Auto) 0.0 Abs Immat Gran (auto) 0.16 H Absolute Neuts (auto) 18.8 H Absolute Nucleated RBC 0.000 Nucleated RBC % (auto) 0.0 Sodium Potassium Chloride Carbon Dioxide Anion Gap BUN Creatinine Estim Creat Clear Calc Estimated GFR POC Glucose Random Glucose Calcium Total Bilirubin Direct Bilirubin AST ALT Alkaline Phosphatase Troponin I High Sens Total Protein Albumin Triglycerides Cholesterol LDL Cholesterol, Calc HDL Cholesterol Urine Color YELLOW Urine Appearance CLOUDY Urine pH 5.5 Ur Specific [place] >= 1.030 H Urine Protein 2+ H Urine Glucose (UA) >=1000 H Urine Ketones NEG Urine Blood 3+ H Urine Nitrite NEG Ur Leukocyte Esterase NEG Urine RBC 1-4 Urine WBC 0 Ur Squamous Epith Cells 1+ Ur Renal Epithelial Cell TRACE Urine Bacteria TRACE Hyaline Casts 0-2 Urine Mucus TRACE Urine Opiates Screen Not Detected Ur Barbiturates Screen Not Detected Ur Phencyclidine Scrn Not Detected Ur Amphetamines Screen Not Detected U Benzodiazepines Scrn Not Detected Urine Cocaine Screen POSITIVE H U Marijuana (THC) Screen POSITIVE H Ethyl Alcohol COVID-19 ([facility]) COVID-19 Clin [facility] 10/29/20 10/29/20 10/29/20 19:10 19:10 19:10 WBC RBC Hgb Hct MCV MCH MCHC RDW Plt Count MPV Immature Gran % (Auto) Neut % (Auto) Lymph % (Auto) Cand[place] % (Auto) Eos % (Auto) Baso % (Auto) Lymph # (Auto) Cand[place] # (Auto) Eos # (Auto) Baso # (Auto) Abs Immat Gran (auto) Absolute Neuts (auto) Absolute Nucleated RBC Nucleated RBC % (auto) Sodium 142 Potassium 4.3 Chloride 106 Carbon Dioxide 23 Anion Gap 17 BUN 22 H Creatinine 1.40 Estim Creat Clear Calc 42.2 Estimated GFR 39 POC Glucose Random Glucose 80 Calcium 9.2 Total Bilirubin 0.3 Direct Bilirubin 0.2 AST 158 H ALT 63 H Alkaline Phosphatase 112 Troponin I High Sens 306.5 H* Total Protein 7.0 Albumin 4.4 Triglycerides Cholesterol LDL Cholesterol, Calc HDL Cholesterol Urine Color Urine Appearance Urine pH Ur Specific [place] Urine Protein Urine Glucose (UA) Urine Ketones Urine Blood Urine Nitrite Ur Leukocyte Esterase Urine RBC Urine WBC Ur Squamous Epith Cells Ur Renal Epithelial Cell Urine Bacteria Hyaline Casts Urine Mucus Urine Opiates Screen Ur Barbiturates Screen Ur Phencyclidine Scrn Ur Amphetamines Screen U Benzodiazepines Scrn Urine Cocaine Screen U Marijuana (THC) Screen Ethyl Alcohol < 10 COVID-19 ([facility]) COVID-19 Clin Com 10/29/20 10/30/20 10/30/20 21:47 01:14 03:49 WBC 13.8 H RBC 3.96 L Hgb 11.8 L Hct 35.6 L MCV 89.9 MCH 29.8 MCHC 33.1 RDW 14.6 Plt Count 258 MPV 10.8 Immature Gran % (Auto) 0.4 Neut % (Auto) 77.6 H Lymph % (Auto) 15.0 L Cand[place] % (Auto) 6.8 Eos % (Auto) 0.1 Baso % (Auto) 0.1 Lymph # (Auto) 2.1 Candler # (Auto) 0.9 Eos # (Auto) 0.0 Baso # (Auto) 0.0 Abs Immat Gran (auto) 0.06 H Absolute Neuts (auto) 10.7 H Absolute Nucleated RBC 0.000 Nucleated RBC % (auto) 0.0 Sodium Potassium Chloride Carbon Dioxide Anion Gap BUN Creatinine Estim Creat Clear Calc Estimated GFR POC Glucose Random Glucose Calcium Total Bilirubin Direct Bilirubin AST ALT Alkaline Phosphatase Troponin I High Sens 513.2 H* D Total Protein Albumin Triglycerides Cholesterol LDL Cholesterol, Calc HDL Cholesterol Urine Color Urine Appearance Urine pH Ur Specific [place] Urine Protein Urine Glucose (UA) Urine Ketones Urine Blood Urine Nitrite Ur Leukocyte Esterase Urine RBC Urine WBC Ur Squamous Epith Cells Ur Renal Epithelial Cell Urine Bacteria Hyaline Casts Urine Mucus Urine Opiates Screen Ur Barbiturates Screen Ur Phencyclidine Scrn Ur Amphetamines Screen U Benzodiazepines Scrn Urine Cocaine Screen U Marijuana (THC) Screen Ethyl Alcohol COVID-19 ([facility]) Negative COVID-19 Clin Com See Note 10/30/20 10/30/20 10/30/20 03:49 03:49 03:49 WBC RBC Hgb Hct MCV MCH MCHC RDW Plt Count MPV Immature Gran % (Auto) Neut % (Auto) Lymph % (Auto) Cand[place] % (Auto) Eos % (Auto) Baso % (Auto) Lymph # (Auto) Cand[place] # (Auto) Eos # (Auto) Baso # (Auto) Abs Immat Gran (auto) Absolute Neuts (auto) Absolute Nucleated RBC Nucleated RBC % (auto) Sodium 136 Potassium 3.5 Chloride 102 Carbon Dioxide 24 Anion Gap 14 BUN 17 H Creatinine 0.85 Estim Creat Clear Calc 69.6 Estimated GFR > 60 POC Glucose Random Glucose 128 H D Calcium 8.9 Total Bilirubin Direct Bilirubin AST ALT Alkaline Phosphatase Troponin I High Sens 808.8 H* D Total Protein Albumin Triglycerides 147 Cancelled Cholesterol 135 Cancelled LDL Cholesterol, Calc 75 Cancelled HDL Cholesterol 31 Cancelled Urine Color Urine Appearance Urine pH Ur Specific [place] Urine Protein Urine Glucose (UA) Urine Ketones Urine Blood Urine Nitrite Ur Leukocyte Esterase Urine RBC Urine WBC Ur Squamous Epith Cells Ur Renal Epithelial Cell Urine Bacteria Hyaline Casts Urine Mucus Urine Opiates Screen Ur Barbiturates Screen Ur Phencyclidine Scrn Ur Amphetamines Screen U Benzodiazepines Scrn Urine Cocaine Screen U Marijuana (THC) Screen Ethyl Alcohol COVID-19 ([facility]) COVID-19 Clin Com 10/30/20 07:03 WBC RBC Hgb Hct MCV MCH MCHC RDW Plt Count MPV Immature Gran % (Auto) Neut % (Auto) Lymph % (Auto) [place] % (Auto) Eos % (Auto) Baso % (Auto) Lymph # (Auto) [place] # (Auto) Eos # (Auto) Baso # (Auto) Abs Immat Gran (auto) Absolute Neuts (auto) Absolute Nucleated RBC Nucleated RBC % (auto) Sodium Potassium Chloride Carbon Dioxide Anion Gap BUN Creatinine Estim Creat Clear Calc Estimated GFR POC Glucose 164 H Random Glucose Calcium Total Bilirubin Direct Bilirubin AST ALT Alkaline Phosphatase Troponin I High Sens Total Protein Albumin Triglycerides Cholesterol LDL Cholesterol, Calc HDL Cholesterol Urine Color Urine Appearance Urine pH Ur Specific [place] Urine Protein Urine Glucose (UA) Urine Ketones Urine Blood Urine Nitrite Ur Leukocyte Esterase Urine RBC Urine WBC Ur Squamous Epith Cells Ur Renal Epithelial Cell Urine Bacteria Hyaline Casts Urine Mucus Urine Opiates Screen Ur Barbiturates Screen Ur Phencyclidine Scrn Ur Amphetamines Screen U Benzodiazepines Scrn Urine Cocaine Screen U Marijuana (THC) Screen Ethyl Alcohol COVID-19 ([facility]) COVID-19 Clin Com EKG shows normal sinus rhythm with normal EKG. Imaging Radiologist's impression: Impressions Head CT 10/29/20 17:53 IMPRESSION: 1. New loss of douglsa-white differentiation with parenchymal hypoattenuation throughout the right cerebellum, not seen on the prior examination. Findings are consistent with an age-indeterminate infarct. 2. No acute intracranial hemorrhage or mass effect. This critical result was discussed with Dr. Nash at 7:44 PM on 10/29/2020 and it was ascertained that the content and urgency of the report was understood at the time of direct communication. Chest X-Ray 10/29/20 19:45 IMPRESSION: Unremarkable examination. Head/Neck CTA 10/29/20 19:49 IMPRESSION: 1. Evolving infarcts of the right cerebellar hemisphere and posterior right parietal lobe. No evidence of hemorrhagic conversion. 2. Chronic encephalomalacia within the right hatch radiata/lentiform nucleus. Mild underlying microangiopathy. 3. CTA of the head and neck without proximal occlusion or flow-limiting stenosis. 4. 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 This lesion has increased in size compared to 2019. 5. Advanced odontogenic disease. Assessment and Plan (1) NSTEMI (non-ST elevated myocardial infarction): Status: Acute Patient was rising troponins, suggestive of myocardial injury and possible non ST elevation myocardial infarction. Continue to trend troponins. This c ould be secondary to coronary vasospasm related to cocaine use versus related to her new stroke versus takotsubo cardiomyopathy. Echocardiogram is been performed and pending reading. Currently bradycardic and cannot use any rate lowering medications. Also blood pressure is soft, will void lisinopril like drug. Eventually may benefit from renin angiotensin aldosterone antagonist. Complete cessation of cocaine was discussed with the patient. Once neurologic status is stable can perform outpatient myocardial perfusion imaging to evaluate for coronary artery disease. (2) PAF (paroxysmal atrial fibrillation): Status: Acute Prior history of paroxysmal atrial fibrillation and CVA on outpatient oral anticoagulation with Eliquis. However there is possible issues with compliance and also use of cocaine. Patient presents with recurrent CVA both in the right cerebellar and parietal lobe, consistent with embolic CVA. This is going been issue as outpatient in patient who has compliance issues. Resume Eliquis 5 mg b.i.d. if okay with Neurology. Consider statin therapy. Will require social intervention. Blood pressure is on the softer side, wide all antihypertensive medications. Physical therapy consult. Patient noted to have bradycardia and has history of prior bradycardia. This may suggest tachy-juan syndrome. Avoid Cardizem or metoprolol therapy at this point in time. Will follow with the patient. Thank you for allowing us to partake in her care Procedures Date of Service Date of Service: 10/30/20
--- NOTE | 2020-10-30 12:09 | MHC.CM.PN ---
Addendum entered by Ai Marquez 10/31/20 15:45: PT IS ACTIVE WITH [facility] FOR MEDICAITON MANAGEMENT Original Note: CM MET WITH PT AND HER MOTHER WHO WAS AT BEDSIDE. PT REPORTS BEING [place] [facility] AND DOES NOT ANSWER ALL QUESTIONS DESPITE CM RAISED VOICE. PT DOES CONFIRM SHE LIVES WITH HER MOTHER AND HAS [facility] SERVICES BUT NEITHER PT NOR MOTHER KNOW THE NAME OF THE AGENCY. PT DENIES USING ANY DME. PT DOES NOT HAVE A HCP COMPLETED AND IS INTERESTED IN COMPLETING ONE. CM WILL ASSIST PT IN COMPLETING A HCP ONCE HER VISIT IS OVER AND IT CAN BE DISCUSSED IN DETAIL. CM WILL ALSO CONFIRM PT IS ORIENTED X 4. PT UNSURE WHO HER PCP IS BUT SAYS YES WHEN ASKED IF SHE STILL SEES JACK SEVERINO. CM WILL CONTACT [facility] TO CONFIRM PTS PCP. CURRENT DC PLAN IS HOME WITH RESUMPTION OF [facility] PTS MOTHER TO TRANSPORT
--- NOTE | 2020-10-30 14:03 | MHC.STROKE ---
ARRIVED 10/29/20 AT 1723 VIA EMS UNRESPONSIVE. LAST KNOWN WELL WAS AT 0700, SYMPTOMS DISCOVERED 1700, THEN EMS CALLED. CT HEAD ABNORMAL RIGHT CEREBELLAR POSTERIOR PARIETAL AREA. STROKE. SHE WAS OUT OF THE WINDOW FOR TPA, INITIAL NIHSS = 5. SHE IS KNOWN TO THE STROKE SERVICE FROM A PRIOR STROKE IN 02/11/19 RIGHT LACUNAR. SHE HAS PAF AND HER COMPLIANCE WITH THE ELIQUIS IS UNKNOWN, SHE IS VERY UNRELIABLE. SHE WOULD NOT PARTICIPATE IN ANY STROKE EDUCATION AFTER 2 ATTEMPTS TODAY. PASSED SWALLOW SCREEN PRIOR TO ANY PO. +HISTORY OF DRUG USE, CARE TEAM REQUEST FOR CONSULT/COUNSELING. ATTEMPTED SMOKING CESSATION EDUCATION ALSO AND UNCOOPERATIVE AND KEEPING HER EYES CLOSED. AN MRI IS PENDING, I WILL CONTINUE TO FOLLOW.
--- NOTE | 2020-10-30 14:19 | P.CNNE_ITS ---
History of Present Illness Data of Consult Service Date: 10/30/20 Primary Care Provider: Unknown Physician 50 years old woman I was asked to see for stroke. She had past medical history of atrial fibrillation stroke and also cocaine abuse. She was brought to hospital change in mental status and difficulty speaking. He was unable to provide meaningful history. Review of Systems Review of Systems: Unable to get precise facts. [facility] Past Medical History Medical History Alcoholism Cocaine dependence CVA (cerebral vascular accident) Depression Disorder of bone and articular cartilage Hx of ovarian cancer Insomnia Mixed hyperlipidemia Nasal congestion Osteopenia PAF (paroxysmal atrial fibrillation) PTSD (post-traumatic stress disorder) Tobacco abuse Social History Social History Household Members: Unknown / Unable to assess Housing: Unknown / Unable to assess Unable to assess alcohol history related to: Unknown and Refusing to respond Patient Tobacco Use Status: Tobacco use Unknown Use of substances other than those prescribed or required for medical reasons: Unknown Substance Use Type: Crack/Cocaine and Heroin Last Used Substance: Unknown Advance Directives: No Advance Directives Information Provided: Yes Do you have thoughts of harming others: None Do you have a plan to hurt others: No Plan Recently lost weight without trying: Unsure Patient : No : No Poor oral hygiene: No service: No Current occupational status: unemployed Meds Allergies Allergy/AdvReac Type Severity Reaction Status Date / Time No Known Allergies Allergy Unverified 02/07/20 15:04 [No Known Allergies*] Active Medications: Current Medications Generic Name Dose Route Start Last Admin Trade Name Lex PRN Reason Stop Dose Admin Acetaminophen 650 mg 10/29/20 23:39 Acetaminophen 325 Mg Tablet PO Q6H PRN Pain, Mild (Pain Scale 1-3) Aspirin 81 mg 10/30/20 09:00 10/30/20 10:10 Aspirin 81 Mg Tab.Chew PO 81 mg DAILY DIANA Administration Atorvastatin Calcium 80 mg 10/30/20 09:00 10/30/20 09:11 Atorvastatin Calcium 80 Mg Tablet PO 80 mg DAILY DIANA Administration Fluoxetine HCl 20 mg 10/30/20 09:00 10/30/20 09:11 Fluoxetine Hcl 20 Mg Capsule PO 20 mg DAILY DIANA Administration Folic Acid 1 mg 10/30/20 09:00 10/30/20 09:12 Folic Acid 1 Mg Tablet PO 1 mg DAILY DIANA Administration Heparin Sodium (Porcine) 5,000 unit 10/29/20 23:45 10/30/20 09:11 Heparin Sodium,Porcine 5,000 Unit/Ml Vial SUBCUT 5,000 unit Q8H DIANA Administration Magnesium Hydroxide 30 ml 10/29/20 23:39 Milk Of Magnesia 30 Ml Oral.Susp PO DAILY PRN Constipation Quetiapine Fumarate 150 mg 10/30/20 21:00 Quetiapine Fumarate 50 Mg Tablet PO BEDTIME DIANA Risperidone 4 mg 10/30/20 09:00 10/30/20 09:12 Risperidone 2 Mg Tablet PO 4 mg DAILY DIANA Administration Senna 17.2 mg 10/29/20 23:39 Sennosides 8.6 Mg Tablet PO BEDTIME PRN Constipation Sodium Chloride 3 ml 10/30/20 00:00 10/30/20 09:13 0.9 % Sodium Chloride Flush 3 Ml Syringe IVFLUSH 3 ml QSHIFT DIANA Administration Home Medications Medication Instructions Recorded Confirmed Last Taken Type atorvastatin 1 tab PO DAILY 10/29/20 10/29/20 Unknown History diltiazem HCl 1 tab PO DAILY 10/29/20 10/29/20 Unknown History fluoxetine 1 cap PO DAILY 10/29/20 10/29/20 Unknown History folic acid 1 tab PO DAILY 10/29/20 10/29/20 Unknown History lisinopril 1 tab PO DAILY 10/29/20 10/29/20 Unknown History quetiapine 1.5 tab PO BEDTIME 10/29/20 10/29/20 Unknown History risperidone 1 tab PO DAILY 10/29/20 10/29/20 Unknown History trazodone 1.5 - 2 tab PO BEDTIME 10/29/20 10/29/20 Unknown History Physical Exam Vital Signs: Vital Signs: Last Vital Signs Temp 97.6 F 10/30/20 11:22 Pulse 48 L 10/30/20 11:22 Resp 18 10/30/20 11:22 BP 107/58 L 10/30/20 11:22 Pulse Ox 97 10/30/20 11:22 Body Mass Index 25.0 She was drowsy and in fact sleeping when I arrived. I was able to wake her up but she still was drowsy. In between she would answer a question or 2. She was not consistently following commands. Pupils were equal and reactive to light. Face was symmetrical. There was no obvious focal weakness. Deep tendon refle xes were trace with flexor plantars. Results Labs CBC & Chem 7: 10/30/20 03:49 10/30/20 03:49 Labs: Short CBC 10/29/20 10/30/20 Range/Units 19:10 03:49 WBC 21.0 H 13.8 H (4.8-10.8) X10*3/uL Hgb 13.2 11.8 L (12.0-16.0) g/dl Hct 40.1 35.6 L (37-47) % Plt Count 292 258 (160-400) X10*3/uL BMP 10/29/20 10/30/20 19:10 03:49 Sodium 142 136 Potassium 4.3 3.5 Chloride 106 102 Carbon Dioxide 23 24 BUN 22 H 17 H Creatinine 1.40 0.85 Calcium 9.2 8.9 Liver Function 10/29/20 Range/Units 19:10 Total Bilirubin 0.3 (0.0-1.0) mg/dL Direct Bilirubin 0.2 (0.0-0.5) mg/dL AST 158 H (5-31) U/L ALT 63 H (0-31) U/L Alkaline Phosphatase 112 (39-117) U/L Albumin 4.4 (3.5-5.0) g/dL Urine 10/29/20 Range/Units 18:58 Urine Color YELLOW Urine Appearance CLOUDY Urine pH 5.5 (5.0-8.0) Ur Specific [place] >= 1.030 H (1.005-1.025) Urine Protein 2+ H (NEG-TRACE) MG/DL Urine Glucose (UA) >=1000 H (NEG) MG/DL CT and CTA of brain and neck were reviewed. It revealed right cerebellar hypodensities. Exam was somewhat limited at this seems to be hypodense signal abnormality in right parietal area. Radiologist also reported a left parotid mass. CTA did not reveal any significant large vessel stenosis. Tox screen was positive for cocaine and marijuana. Assessment and Plan (1) Acute CVA (cerebrovascular accident): Status: Acute Multiple ischemic lesions with unclear etiology. Differential diagnosis would include atherothrombotic or embolic ischemic infarctions but also reversible ischemic encephalopathy. An MRI brain without contrast is recommended for further evaluation. There was no contraindication to routine anticoagulation of that was indicated. (2) Parotid mass: Status: Acute Evaluation by head and neck surgeon is recommended Procedures Date of Service Date of Service: 10/30/20
--- NOTE | 2020-10-30 15:33 | MHC.SL.SWA ---
Speech Pathologist Impression: Within Functional Limits Risk of Aspiration Due to: Neurological Condition Dysphasia Diet Status: Upgrade Liquid Consistency and Strategies for Safe Swallow: Liquid Intake Recommendation: Thin Liquid Intake Strategies: Small Sips Solid Food Consistency: Dietary Recommendations: Regular Oral Medication Intake: Whole with Liquid Compensatory Strategies and Precautions to be Taken for Safe Swallow: Sitting Upright (90 deg) Small Bites and Sips Alternate Liquids/Solids Rate of Ingestion Change Supervision While Eating and Drinking for Safe Swallow: Intermittent Supervision Recommendation for Speech: NA:Typical Evaluation Comment: Patient passed bedside dysphagia evaluation. No overt s/s of aspiration. Building Superintendent Clinican/Clinical Fellow: No Supervisory Statement: I have reviewed and agree with the student/clinical fellow's documentation: N/A Speech Language Pathologist: [place] Tolbert M.A., CCC-REAL ESTATE ACCOUNT EXECUTIVE
[2020-10-30 15:58] LABS: Troponin-I High Sensitivity 566.3 ng/L (<3.5-17.0)
[2020-10-30 16:02] LABS: Glucose, Whole Blood 173 mg/dL (60-115)
--- NOTE | 2020-10-30 16:20 | MHC.RECOVRN ---
Addendum entered by Marilee Eden 10/30/20 16:20: Pt denies all other substances, including alcohol. Original Note: 50 year old female presented to [facility] [place] via EMS on 10/29 due to Pt found unresponsive by family, given 8mg of narcan, started waking up, unable to answer questions, HX of crack use. ?Pipe found at scene by ems ?per combat engineer. Upon evaluation, pt admitted for acute CVA. T/w met with pt in 457 after consult placed to CARE Team for polysubstance. Pt reports using crack cocaine, INH, $20,?occaisonally?x 1 year. Pt began use 1 year ago. Last use yesterday. Pt reports using daily x 2 weeks, prior to that last use a month ago. Pt states I don't need help. I can stop. Pt also reports marijuana use.? Pt educated regarding supports for substance use, pt open to learning but declines services or referrals.? Pt scheduled to have MRI this evening, t/w will follow up tomorrow with resources regarding recovery coaching. T/w available as needed.?
--- NOTE | 2020-10-30 19:03 | PC.NURSE ---
MRI personals requested clarifications of implants and foreign body done by [facility] . xray done today ,results pending
[2020-10-30 19:46] LABS: Glucose, Whole Blood 113 mg/dL (60-115)
[2020-10-30] MEDS: Apixaban 5 MG TABLET PO (20:17)
[2020-10-30] MEDS: QUEtiapine Fumarate 50 MG TABLET 150 MG PO (20:17)
[2020-10-31] MEDS: 0.9 % Sodium Chloride Flush 3 ML SYRINGE IVFLUSH ×3 (00:21→16:20)
[2020-10-31 04:00] VITALS: BP 121/79; PULSE 64; RESP 18; TEMP 36.3; O2SAT 97
[2020-10-31 07:06] LABS: Hematocrit 37.8 % (37-47); Hemoglobin 12.1 g/dl (12.0-16.0); Mean Corpuscular Hemoglobin 29.4 pg (27.0-33.0); Mean Corpuscular Volume 91.7 fL (80-98); Mean Platelet Volume 11.1 fL (9.4-12.3); Platelet Count 258 X10*3/uL (160-400); Red Blood Count 4.12 X10*6/uL (4.20-5.50); Red Cell Distribution Width 14.4 % (11.0-16.0); White Blood Count 10.3 X10*3/uL (4.8-10.8)
[2020-10-31 07:19] LABS: Glucose, Whole Blood 114 mg/dL (60-115)
[2020-10-31 07:24] VITALS: BP 115/58; PULSE 42; RESP 18; TEMP 36.2; O2SAT 97
[2020-10-31 07:25] LABS: Alanine Aminotransferase 168 U/L (0-31); Albumin Level 4.1 g/dL (3.5-5.0); Alkaline Phosphatase 94 U/L (39-117); Anion Gap 13 (12-20); Aspartate Amino Transferase 270 U/L (5-31); Bilirubin Direct < 0.2 mg/dL (0.0-0.5); Bilirubin Total 0.2 mg/dL (0.0-1.0); Blood Urea Nitrogen 13 mg/dL (9-16); Calcium 9.1 mg/dL (8.4-10.2); Carbon Dioxide 30 mmol/L (22-29); Chloride 105 mmol/L (96-108); Creatinine Clr Calc Pharmacy 74.9; Estimated Glomerular Filt Rate > 60; Glucose Fasting 105 mg/dL (60-99); Potassium 3.8 mmol/L (3.3-5.1); Sodium 144 mmol/L (135-145); Total Protein 6.6 g/dL (6.5-8.0)
[2020-10-31 08:37] LABS: HBS Num1 0.49 mIU/mL (0-7.99); ~Hepatitis B Surface Antibody NONREACTIVE (Nonreactive)
[2020-10-31 08:58] LABS: HBsAGNum1 0.24 S/CO (0.00-0.99); Hepatitis B Core Antibody Nonreactive (Nonreactive); Hepatitis B Surface Antigen Negative (Negative); ~HepC Num1 0.07 S/CO (0.00-0.79); ~Hepatitis C Antibody Nonreactive (Nonreactive)
[2020-10-31] MEDS: Apixaban 5 MG TABLET PO (09:24)
[2020-10-31] MEDS: risperiDONE 2 MG TABLET 4 MG PO (09:24)
[2020-10-31] MEDS: Folic Acid 1 MG TABLET PO (09:25)
[2020-10-31] MEDS: FLUoxetine HCl 20 MG CAPSULE PO (09:25)
[2020-10-31] MEDS: Atorvastatin Calcium 80 MG TABLET PO (09:25)
--- NOTE | 2020-10-31 10:02 | P.PNIM_ITS ---
Subjective Subjective Date of Service: 10/31/20 Interval History: no complaints Cardiovascular Cardiovascular: Reports no additional cardiovascular complaints Gastrointestinal Gastrointestinal: Reports no additional gastrointestinal complaints Physical Exam Vital Signs: Vital Signs: Last Vital Signs Temp 97.2 F 10/31/20 07:24 Pulse 42 L 10/31/20 07:24 Resp 18 10/31/20 07:24 BP 115/58 L 10/31/20 07:24 Pulse Ox 97 10/31/20 07:24 Body Mass Index 25.0 General: AO X 3, no acute distress Resp: CTA bilateral CVS: S1,S2,RRR GI: soft, non tender, non distended Neuro: motor grossly intact Psych: appropriate affect Objective Data Current Medications Generic Name Dose Route Start Last Admin Trade Name Freq PRN Reason Stop Dose Admin Acetaminophen 650 mg 10/29/20 23:39 Acetaminophen 325 Mg Tablet PO Q6H PRN Pain, Mild (Pain Scale 1-3) Apixaban 5 mg 10/30/20 21:00 10/31/20 09:24 Apixaban 5 Mg Tablet PO 5 mg BID DIANA Administration Atorvastatin Calcium 80 mg 10/30/20 09:00 10/31/20 09:25 Atorvastatin Calcium 80 Mg Tablet PO 80 mg DAILY DIANA Administration Fluoxetine HCl 20 mg 10/30/20 09:00 10/31/20 09:25 Fluoxetine Hcl 20 Mg Capsule PO 20 mg DAILY DIANA Administration Folic Acid 1 mg 10/30/20 09:00 10/31/20 09:25 Folic Acid 1 Mg Tablet PO 1 mg DAILY DIANA Administration Magnesium Hydroxide 30 ml 10/29/20 23:39 Milk Of Magnesia 30 Ml Oral.Susp PO DAILY PRN Constipation Quetiapine Fumarate 150 mg 10/30/20 21:00 10/30/20 20:17 Quetiapine Fumarate 50 Mg Tablet PO 150 mg BEDTIME DIANA Administration Risperidone 4 mg 10/30/20 09:00 10/31/20 09:24 Risperidone 2 Mg Tablet PO 4 mg DAILY DIANA Administration Senna 17.2 mg 10/29/20 23:39 Sennosides 8.6 Mg Tablet PO BEDTIME PRN Constipation Sodium Chloride 3 ml 10/30/20 00:00 10/31/20 09:25 0.9 % Sodium Chloride Flush 3 Ml Syringe IVFLUSH 3 ml QSHIFT DIANA Administration Labs CBC & Chem 7: 10/31/20 05:49 10/31/20 05:49 Assessment and Plan (1) Acute CVA (cerebrovascular accident): Status: Acute (2) NSTEMI (non-ST elevated myocardial infarction): Status: Acute Assessment and Plan: 50F presented with ams, found to have acute CVA and NSTEMI toxic encephalopathy due to opioid overdose resolved care team acute right cerebellar hemisphere and posterior right parietal lobe infarcts asa, statin (increased to high potency), follow up MRI holding bp meds does not appear to have defecits at this time NSTEMI cva related, vs takatsubo, vs cocaine troponin now downtrending, echo unremarkable 1.7cm left parotid mass suspicious for neoplasm oncology eval alcohol dependence CIWA, no evidence of withdrawl at this time elevated LFTS could be alcohol related viral hepatitis panel negative pafib now sinus bradycardia unclear if taking eliquis, patient stated that she is, appears not to have fi lled since may 2020, restarted yesterday stopped cardizem for permissive htn and bradycardia psych disorder seroquel, risperdal
[2020-10-31 10:55] LABS: Glucose, Whole Blood 108 mg/dL (60-115)
[2020-10-31 11:12] VITALS: BP 125/57; PULSE 57; RESP 20; TEMP 36.7; O2SAT 98
--- NOTE | 2020-10-31 13:10 | PM.HEMONCCN ---
Subjective - Subjective Chief complaint: Consult for: Left parotid mass. Patient: new to practice Consult date: 10/31/20 Requesting Physician: Laura. Primary Care Provider: Unknown Physician Medical Summary: DIAGNOSIS: LEFT PAROTID MASS. HPI - Consult Narrative Reason for consult: Consult for: Left parotid mass. Narrative: Cari Sánchez is a pleasant 50 year old lady, who presented on 10/29 with a chief complaint of brief unresponsive episode. Patient is a poor historian, not answering questions, follows simple commands, moves all extremities equally, patient passed dysphagia screen and has been drinking water in the ER; She was able to stand up and was taken to the bathroom. Later it was reported that patient had not been answering questions but able to understand simple commands. Reportedly, she has these episodes of not talking which usually last for some time. I spoke to the patient's mother who mentioned that patient likely has been using IV drugs, but unsure which drug she is using. The day of admission she was noted to be sleepy. Later in the evening when she went to woke up the patient she was not responding so EMS was called. Patient's mom did not report any chest pain lightheadedness dizziness focal weakness. Mentioned that patient usually eats less at home. ER course: Per ER team patient does not talking well and less cooperative exam; reported that EMS gave her Narcan. Patient was briefly answering yes or no to most of the questions. U tox positive for cocaine. CT head showed right cerebellar evaluating infarct. Patient was given aspirin. CT of head and neck revealed: 1. Evolving infarcts of the right cerebellar hemisphere and posterior right parietal lobe. No evidence of hemorrhagic conversion. 2. Chronic encephalomalacia within the right hatch radiata/lentiform nucleus. Mild underlying microangiopathy. 3. CTA of the head and neck without proximal occlusion or flow-limiting stenosis. 4. 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 This lesion has increased in size compared to 2019. 5. Advanced odontogenic disease. Review of systems: Unable to obtain given above concerns. Past medical history: Hypertension, hyperlipidemia, paroxysmal AFib, history of CVA, polysubstance abuse, cocaine abuse, alcohol abuse, anxiety, depression, PTSD, tobacco dependence. Review of Systems - Constitutional Reports system reviewed and no additional complaints, except as documented, Reports lack of energy, Reports weight loss - Eyes Reports system reviewed and no additional complaints, except as documented - ENT Reports system reviewed and no additional complaints, except as documented - Cardiovascular Reports system reviewed and no additional complaints, except as documented - Respiratory Reports no additional respiratory complaints - Gastrointestinal Reports system reviewed and no additional complaints, except as documented - Genitourinary Reports no additional female genitourinary complaints - Musculoskeletal Reports system reviewed and no additional complaints, except as documented - Integumentary/Breasts Skin/Breast: Reports no additional skin complaints - Neurologic Reports system reviewed and no additional complaints, except as documented - Psychiatric Reports system reviewed and no additional complaints, except as documented - Endocrine Reports no additional endocrine complaints - Hematologic/Lymphatic Reports system reviewed and no additional complaints, except as documented - Allergic/Immunologic Reports system reviewed and no additional complaints, except as documented Oncology Screenings - ECOG Performance Status ECOG Performance Status: 1 [facility] Medical History: Medical History (Last Reviewed 10/31/20 @ 10:34 by ROBERT Askwe-L) Alcoholism Cocaine dependence CVA (cerebral vascular accident) Depression Disorder of bone and articular cartilage Hx of ovarian cancer Insomnia Mixed hyperlipidemia Nasal congestion Osteopenia PAF (paroxysmal atrial fibrillation) PTSD (post-traumatic stress disorder) Tobacco abuse Social History: Social History (Last Reviewed 10/30/20 @ 11:29 by Josue Milton MD) Living Situation History: Household Members: Unknown / Unable to asses Housing: Unknown / Unable to asses Do you presently have visiting nurse or other home services: Do you presently have visiting nurse or other home services comment: pt not responding to questions at this time Alcohol History: Unable to assess alcohol history related to: Unknown Unable to assess alcohol history related to: Refusing to respond Tobacco History: Patient Tobacco Use Status: Tobacco use Unknown Substance Use History: Substance Use Type: Crack/Cocaine Substance Use Type: Heroin Occupation Assessmet: service: No Current occupational status: unemployed Home Medications and Allergies Current Medications: Current Medications Generic Name Dose Route Start Last Admin Trade Name Freq PRN Reason Stop Dose Admin Acetaminophen 650 mg 10/29/20 23:39 Acetaminophen 325 Mg Tablet PO Q6H PRN Pain, Mild (Pain Scale 1-3) Apixaban 5 mg 10/30/20 21:00 10/31/20 09:24 Apixaban 5 Mg Tablet PO 5 mg BID DIANA Administration Atorvastatin Calcium 80 mg 10/30/20 09:00 10/31/20 09:25 Atorvastatin Calcium 80 Mg Tablet PO 80 mg DAILY DIANA Administration Fluoxetine HCl 20 mg 10/30/20 09:00 10/31/20 09:25 Fluoxetine Hcl 20 Mg Capsule PO 20 mg DAILY DIANA Administration Folic Acid 1 mg 10/30/20 09:00 10/31/20 09:25 Folic Acid 1 Mg Tablet PO 1 mg DAILY DIANA Administration Magnesium Hydroxide 30 ml 10/29/20 23:39 Milk Of Magnesia 30 Ml Oral.Susp PO DAILY PRN Constipation Quetiapine Fumarate 150 mg 10/30/20 21:00 10/30/20 20:17 Quetiapine Fumarate 50 Mg Tablet PO 150 mg BEDTIME DIANA Administration Risperidone 4 mg 10/30/20 09:00 10/31/20 09:24 Risperidone 2 Mg Tablet PO 4 mg DAILY DIANA Administration Senna 17.2 mg 10/29/20 23:39 Sennosides 8.6 Mg Tablet PO BEDTIME PRN Constipation Sodium Chloride 3 ml 10/30/20 00:00 10/31/20 09:25 0.9 % Sodium Chloride Flush 3 Ml Syringe IVFLUSH 3 ml QSHIFT DIANA Administration Home Medications Medication Instructions Recorded Confirmed Type atorvastatin 1 tab PO DAILY 10/29/20 10/29/20 History diltiazem HCl 1 tab PO DAILY 10/29/20 10/29/20 History fluoxetine 1 cap PO DAILY 10/29/20 10/29/20 History folic acid 1 tab PO DAILY 10/29/20 10/29/20 History lisinopril 1 tab PO DAILY 10/29/20 10/29/20 History quetiapine 1.5 tab PO BEDTIME 10/29/20 10/29/20 History risperidone 1 tab PO DAILY 10/29/20 10/29/20 History trazodone 1.5 - 2 tab PO BEDTIME 10/29/20 10/29/20 History Allergies Allergy/AdvReac Type Severity Reaction Status Date / Time No Known Allergies Allergy Unverified 02/07/20 15:04 [No Known Allergies*] Physical Exam Vital signs: Vital Signs Temp 98.1 F 10/31/20 11:12 Pulse 57 10/31/20 11:12 Resp 20 10/31/20 11:12 BP 125/57 L 10/31/20 11:12 Pulse Ox 98 10/31/20 11:12 Intake & Output 10/30/20 10/31/20 10/31/20 18:59 06:59 18:59 Intake Total 180 / 180 Output Total 500 / 500 300 / 300 Balance -320 / -320 -300 / -300 Urine Output (Average ml/kg/hr) 0.61 0.61 0.37 Intake: Intake, IV Amount 180 / 180 Dextrose 5 % and 0.45 % NaCl 1, 180 / 180 000 ml @ 100 mls/hr IVCONT . Q10H [facility] Rx#:[id number] Output: Output, Urine Amount 500 / 500 300 / 300 Other: Number of Incontinent Voids 2 Number of Unmeasured Voids 3 Urine Bathroom Bathroom Bathroom Urine Color Yellow Yellow Weight 68.039 kg - Constitutional Present: mild distress - Routine HEENT Exam Head: Present: normal inspection ENT: Present: mucous membranes moist, normal exam - Routine Neck Exam Present: supple - Routine Respiratory Exam Present: CTAB - Routine Cardiovascular Exam Cardiovascular: Present: RRR, S1, S2 - Routine Abdominal Exam Present: soft, nontender - Routine Rectal Exam Patient deferred: digital exam - Routine Extremities Exam Present: nontender - Routine Skin Exam Present: intact, normal turgor - Routine Neurological Exam Present: alert - Detailed Neurological Exam: Coma Scale Eye Opening: Spontaneous (4) Verbal Response: Oriented (5) Motor Response: Obeys commands (6) [place] Coma Scale Total: 15 Hem/Onc Consult Result - Labs CBC & Chem 7: 10/31/20 05:49 10/31/20 05:49 Labs: Short CBC 10/31/20 Range/Units 05:49 WBC 10.3 (4.8-10.8) X10*3/uL Hgb 12.1 (12.0-16.0) g/dl Hct 37.8 (37-47) % Plt Count 258 (160-400) X10*3/uL BMP 10/31/20 05:49 Sodium 144 Potassium 3.8 Chloride 105 Carbon Dioxide 30 H BUN 13 Creatinine 0.79 Calcium 9.1 Liver Function 10/31/20 Range/Units 05:49 Total Bilirubin 0.2 (0.0-1.0) mg/dL Direct Bilirubin < 0.2 (0.0-0.5) mg/dL AST 270 H (5-31) U/L ALT 168 H (0-31) U/L Alkaline Phosphatase 94 (39-117) U/L Albumin 4.1 (3.5-5.0) g/dL Assessment and Plan (1) Parotid mass Status: Acute This is a 50-year-old lady with a history of IV drug abuse. She presented with mental status changes. Was noted to have multiple brain infarcts. Incidentally noted was a left parotid mass. That has grown over time. That does appear to be rather suspicious appearing. 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 PLAN: I will review the imaging with the radiologist. See if the biopsy is feasible. She will need to be off the aspirin, so may have to wait on that. Will make further recommendations based upon the results. Thank you, CC: Salome. Discharge summary: Patient was admitted for toxic encephalopathy due to opioid overdose complicated by acute right cerebellar hemisphere posterior right parietal lobe infarct. Mental status quickly returned to normal. She was given aspirin, statin which was increased to high potency. She was not given tPA due to resolution of symptoms and unclear window. Due to history of paroxysmal AFib and that she was apparently on Eliquis. Her Eliquis was restarted and aspirin discontinued. Patient also noted to have elevated troponins with peak of 808, echo was unremarkable. This was felt to be secondary to stroke versus drug use. Patient was incidentally, noted to have enlarging parotid mass. She was seen by Oncology who recommended follow-up for biopsy. Patient still has some workup pending including: the MRI of the brain, however, patient has decided to leave against medical advice, she is aware of the risk of doing so including increased risk of stroke.
--- NOTE | 2020-10-31 14:54 | MHC.SLORD ---
Speech Language Pathology Order Status: EGG PASTEURIZER attempted to see patient for speech therapy this morning. Patient was sleeping.
[2020-10-31 15:17] VITALS: BP 125/59; PULSE 47; RESP 18; TEMP 36.7; O2SAT 97
[2020-10-31 16:27] LABS: Glucose, Whole Blood 119 mg/dL (60-115)
--- NOTE | 2020-10-31 17:09 | P.DS_ITS ---
DS: Providers Provider Date of Service: 10/31/20 Date of admission: 10/29/20 23:39 Primary care physician: Unknown Physician Consults: 10/29/20 23:39 Consult to Hematology / Oncology Routine Consulting Provider: Mindi Rob Reason for consultation: Parotid mass Consult to Neurology Routine Consulting Provider: [facility] Reason for consultation: CVA 10/30/20 00:21 Consult to Cardiology Routine Consulting Provider: Josue Milton Reason for consultation: pt with hx afib;? non compliant with eliquis; p/w CVA 10/30/20 09:35 Consult to Care Team Routine Comment: Reason for consultation: polysubtance DS: Diagnosis Discharge Diagnosis (1) Parotid mass: Status: Acute (2) NSTEMI (non-ST elevated myocardial infarction): Status: Acute (3) Acute CVA (cerebrovascular accident): Status: Acute (4) PAF (paroxysmal atrial fibrillation): Status: Acute (5) Alcoholic fatty liver: Status: Acute (6) Toxic encephalopathy: Status: Acute DS: Medications Discharge Medications Home Medications: Home Medications Medication Instructions Recorded Confirmed atorvastatin 1 tab PO DAILY 10/29/20 10/29/20 diltiazem HCl 1 tab PO DAILY 10/29/20 10/29/20 fluoxetine 1 cap PO DAILY 10/29/20 10/29/20 folic acid 1 tab PO DAILY 10/29/20 10/29/20 lisinopril 1 tab PO DAILY 10/29/20 10/29/20 quetiapine 1.5 tab PO BEDTIME 10/29/20 10/29/20 risperidone 1 tab PO DAILY 10/29/20 10/29/20 trazodone 1.5 - 2 tab PO BEDTIME 10/29/20 10/29/20 DS: Summary Hospital Course Hospital Course: Patient was admitted for toxic encephalopathy due to opioid overdose complicated by acute right cerebellar hemisphere posterior right parietal lobe infarct. Mental status quickly returned to normal. She was given aspirin, statin which was increased to high potency. She was not given tPA due to resolution of symptoms and unclear window. Due to history of paroxysmal AFib and that she was apparently on Eliquis. Her Eliquis was restarted and aspirin discontinued. Patient also noted to have elevated troponins with peak of 808, echo was unremarkable. This was felt to be secondary to stroke versus drug use. Patient was also noted to have instantly found enlarging parotid mass she was seen by Oncology who recommended follow-up for biopsy. Patient is still Has some workup pending including the MRI of the brain, however, patient has decided to leave against medical advice, she is aware of the risk of doing so including increased risk of stroke. Time Spent with Patient Time attestation: Total time spent providing and/or coordinating discharge services: Discharge coordination time: Greater than 30 minutes Quality: Stroke Does the patient have a stroke diagnosis?: Yes Reason for No Anti-thrombotic at DC: N/A - Med Ordered Reason for No Anticoagulant at DC: N/A - Med Ordered Reason Not Initiating IV-Tpa: Contraindicated Reason for No Anti-thrombotic by Day Two: N/A - Med Ordered Reason for No Statin at DC: N/A - Med Ordered Reason Stroke Education Not Initiated: Refused Physical Exam Vital Signs: Vital Signs: Last Vital Signs Temp 98.0 F 10/31/20 15:17 Pulse 47 L 10/31/20 15:17 Resp 18 10/31/20 15:17 BP 125/59 L 10/31/20 15:17 Pulse Ox 97 10/31/20 15:17 Body Mass Index 25.0 General: AO X 3, no acute distress Resp: CTA bilateral CVS: S1,S2,RRR GI: soft, non tender, non distended Neuro: motor grossly intact, ?mild left facial droop Psych: appropriate affect DS: Data Data Completed and Pending Labs on day of discharge: Laboratory Results - last 24 hr 10/30/20 10/31/20 10/31/20 19:43 05:49 05:49 WBC 10.3 RBC 4.12 L Hgb 12.1 Hct 37.8 MCV 91.7 MCH 29.4 MCHC 32.0 RDW 14.4 Plt Count 258 MPV 11.1 Absolute Nucleated RBC 0.000 Nucleated RBC % (auto) 0.0 Sodium 144 Potassium 3.8 Chloride 105 Carbon Dioxide 30 H Anion Gap 13 BUN 13 Creatinine 0.79 Estim Creat Clear Calc 74.9 Estimated GFR > 60 POC Glucose 113 Fasting Glucose 105 H Calcium 9.1 Total Bilirubin 0.2 Direct Bilirubin < 0.2 AST 270 H ALT 168 H Alkaline Phosphatase 94 Total Protein 6.6 Albumin 4.1 Hep Bs Antigen Hep Bs Antibody Hep B Core Total Ab Hepatitis C Ab (EIA) 10/31/20 10/31/20 10/31/20 05:50 07:14 10:51 WBC RBC Hgb Hct MCV MCH MCHC RDW Plt Count MPV Absolute Nucleated RBC Nucleated RBC % (auto) Sodium Potassium Chloride Carbon Dioxide Anion Gap BUN Creatinine Estim Creat Clear Calc Estimated GFR POC Glucose 114 108 Fasting Glucose Calcium Total Bilirubin Direct Bilirubin AST ALT Alkaline Phosphatase Total Protein Albumin Hep Bs Antigen Negative Hep Bs Antibody NONREACTIVE Hep B Core Total Ab Nonreactive Hepatitis C Ab (EIA) Nonreactive 10/31/20 16:24 WBC RBC Hgb Hct MCV MCH MCHC RDW Plt Count MPV Absolute Nucleated RBC Nucleated RBC % (auto) Sodium Potassium Chloride Carbon Dioxide Anion Gap BUN Creatinine Estim Creat Clear Calc Estimated GFR POC Glucose 119 H Fasting Glucose Calcium Total Bilirubin Direct Bilirubin AST ALT Alkaline Phosphatase Total Protein Albumin Hep Bs Antigen Hep Bs Antibody Hep B Core Total Ab Hepatitis C Ab (EIA) Discharge Plan Discharge Patient Disposition: Left Against Medical Advice Discharge Diagnosis: parotid mass, cva Referrals: Mindi Rob MD [Physician] - 1 Week Physician,Unknown [Primary Care Provider] - 1 Week Discharge Medications: No Action atorvastatin 10 mg tablet 1 tab PO DAILY RF: 0 risperidone 4 mg tablet 1 tab PO DAILY RF: 0 quetiapine 100 mg tablet 1.5 tab PO BEDTIME RF: 0 trazodone 100 mg tablet 1.5 - 2 tab PO BEDTIME RF: 0 folic acid 1 mg tablet 1 tab PO DAILY RF: 0 lisinopril 5 mg tablet 1 tab PO DAILY RF: 0 diltiazem HCl 30 mg tablet 1 tab PO DAILY RF: 0 fluoxetine 20 mg capsule 1 cap PO DAILY RF: 0 Discharge Orders: Discharge Order (Routine); Ordered 10/31/20 Ordered By: Geronimo Mcmahon Diet: advance to usual diet Activity on Discharge: As tolerated Care Plan Goals: prevent strokes, work up parotid mass Health Concerns: parotid mass, cva Plan of Treatment: eliquis, follow up oncology Assessment: see above
--- NOTE | 2020-10-31 17:09 | PC.NURSE ---
Pt reports that she will be Leaving AMA . Notified Hospitalist. Hospitalist at bedside and risks explained.Pt states she has eloquis at home and know she could restroke. Pt finishing her meal and leaving by private car.
--- NOTE | 2020-11-01 08:20 | MHC.CM.PN ---
POST DC NOTE CM LEARNED THIS MORNING THAT PT LEFT AMA AFTER 1700 HOURS LAST NIGHT. PTS [facility], [facility], NOTIFIED VIA [employer].
== END 2020-10-31 18:40 | disposition left against medical advice (07) | DRG 812 ==
LOC: HO.ED 21:08 → HO.IMC 10-30 07:26 → HO.EDOVER 10-30 08:46 → HO.IMC 10-30 08:50
PROVIDERS: Admitting Provider Hospitalist; Emergency Provider Emergency Medicine; Visit Provider Internal Medicine
DX: T40.2X1A Poisoning by other opioids, accidental (unintentional), initial encounter (principal); I63.541 Cerebral infarction due to unspecified occlusion or stenosis of right cerebellar artery; G92 Toxic encephalopathy; I63.59 Cerebral infarction due to unspecified occlusion or stenosis of other cerebral artery; I48.0 Paroxysmal atrial fibrillation; F14.10 Cocaine abuse, uncomplicated; E78.5 Hyperlipidemia, unspecified; I10 Essential (primary) hypertension; Y92.009 Unspecified place in unspecified non-institutional (private) residence as the place of occurrence of the external cause; K76.0 Fatty (change of) liver, not elsewhere classified; K11.8 Other diseases of salivary glands; F10.20 Alcohol dependence, uncomplicated; Z20.822 Contact with and (suspected) exposure to COVID-19; F17.210 Nicotine dependence, cigarettes, uncomplicated; Z71.6 Tobacco abuse counseling; Z79.899 Other long term (current) drug therapy
CPT/HCPCS: 36415; 70450; 70496; 70498; 71045; 74018; 80048; 80061; 80076; 80307; 81001; 82077; 82947; 84484; 85025; 85027; 86704; 86706; 86803; 87340; 87635; 92523; 92610; 93005; 93306; 97162; 97167; 99285; Q9967

== ENCOUNTER 2020-12-08 06:34 | Emergency (ER) | payer MEDICAID, SELFPAY ==
--- NOTE | ~2020-12-08 | XR_ITS ---
EXAMINATION: XR CHEST CLINICAL INFORMATION: Chest pain. From pulmonary edema. COMPARISON: Chest 10/29/2020 TECHNIQUE: Frontal view of the chest was obtained. FINDINGS: The lungs are well-expanded and clear. The heart size and pulmonary vascularity is normal. No gross bony abnormality seen. XR/XR chest 1V IMPRESSION: Unremarkable chest exam.
[2020-12-08 06:46] VITALS: BP 150/78; BP 162/46; PULSE 61; PULSE 82; RESP 17; TEMP 36.7; O2SAT 97; BMI 21.2
[2020-12-08 07:11] VITALS: BP 148/66; PULSE 63; RESP 18; TEMP 36.5; O2SAT 98
[2020-12-08 07:59] VITALS: BP 112/49; PULSE 58; RESP 20; O2SAT 97
--- NOTE | 2020-12-08 07:59 | PC.NURSE ---
PT IS A/O X 3 NO SOB/JASON NOTED SKIN PINK WARM DRY SPEAKS IN FULL SENTENCES.
--- NOTE | 2020-12-08 08:53 | MHC.RECOVSUP ---
Recovery Support note: Patient is a 50 year old [place] speaking female who presented to [facility] [place] [place] ED after an accidental overdose. This resume writer met with patient in ED10 to discuss the circumstances that prompted her ED visit. Patient was resting in the hospital bed when this resume writer entered the room, however she awoke when this resume writer spoke her name. Patient reports she is here because she fell out of a chair. When asked if she used any drugs she reported using heroin for the first time. Patient reports she did it for fun. Patient reports the only other substance she uses is marijuana. Discussed with patient the danger of using heroin and the risk of overdose. Patient acknowledged. Discussed the addictive nature of heroin with patient and patient continues to decline regular use. Patient states she will not use heroin again and does not anticipate any barriers in pursuing sobriety. Informed patient of recovery supports in the community, in the event that she is looking for more support. Patient acknowledged and reports no questions at this time.
--- NOTE | 2020-12-08 09:33 | ED_ITS ---
HPI - Overdose General Chief Complaint: Overdose Stated Complaint: OD Time Seen by Provider: 12/08/20 08:09 Source: patient Mode of arrival: ambulatory History of Present Illness HPI Narrative: 50-year-old female with a past medical history of ETOH abuse, cocaine dependence, CVA, depression, insomnia, hyperlipidemia, PAF, PTSD, tobacco abuse, BIBA for accidental overdose [employer]. Patient reports snorting 1 bag of heroin [employer], was administered 12mg of intranasal Narcan by bystander, A&Ox4 on EMS arrival. Per EMS patient was seen sitting in chair and then heard blood was found on the ground. Patient denies SI/HI, other illicit drugs/ETOH use. Denies headache, CP/SOB, abdominal pain, nausea/vomiting MD complaint: accidental overdose Related Data Home Medications Medication Instructions Recorded Confirmed atorvastatin 1 tab PO DAILY 10/29/20 11/18/20 diltiazem HCl 1 tab PO DAILY 10/29/20 11/18/20 fluoxetine 1 cap PO DAILY 10/29/20 11/18/20 folic acid 1 tab PO DAILY 10/29/20 11/18/20 lisinopril 1 tab PO DAILY 10/29/20 11/18/20 quetiapine 1.5 tab PO BEDTIME 10/29/20 11/18/20 risperidone 1 tab PO DAILY 10/29/20 11/18/20 trazodone 1.5 - 2 tab PO BEDTIME 10/29/20 11/18/20 ergocalciferol (vitamin D2) 1 cap PO QWEEK 11/18/20 11/18/20 Allergies Allergy/AdvReac Type Severity Reaction Status Date / Time No Known Allergies Allergy Verified 12/08/20 06:50 [No Known Allergies*] Review of Systems Review of Systems: Constitutional: No Fever, No Chills, No Fatigue, No Malaise ENT/Mouth: No Ear Pain, No Nasal Congestion Cardiovascular: No Chest Pain, No SOB Respiratory: No Cough, No Dyspnea Gastrointestinal: No Nausea, No Vomiting, No Diarrhea, No Abdominal pain Musculoskeletal: No joint pain, No Myalgias, No Joint Swelling Skin: No Skin Lesions, No rash Neuro: No Weakness, No Headache Psych: No Anxiety, No Depression, No SI/HI Yes all other systems are reviewed and are negative PMFSH Past Medical History Attestation statement: The following information was validated with the patient. Medical History (Updated 12/08/20 @ 15:42 by KEILA Elise) Alcoholism Cocaine dependence CVA (cerebral vascular accident) Depression Disorder of bone and articular cartilage Hx of ovarian cancer Insomnia Mixed hyperlipidemia Nasal congestion Osteopenia PAF (paroxysmal atrial fibrillation) PTSD (post-traumatic stress disorder) Tobacco abuse Surgical History (Updated 11/18/20 @ 10:28 by Mindi Rob MD) Hx of hysterectomy Family History Family History (Updated 11/18/20 @ 09:56 by Yajaira Hills) Maternal Grandmother Breast cancer Mother DVT (deep venous thrombosis) Diabetes Social History Social History (Updated 11/18/20 @ 09:56 by Yajaira Hills) Household Members: Unknown / Unable to assess Housing: Unknown / Unable to assess Alcohol intake: never Patient Tobacco Use Status: Current everyday Tobacco user Cigarette Packs Per Day: 0.5 Use of substances other than those prescribed or required for medical reasons: Yes Substance Use Type: Heroin Advance Directives: Yes Advance Directives Information Provided: No Advance Directives on File: No service: No Current occupational status: unemployed Physical Exam Vital Signs: Vital Signs: Last Vital Signs Temp 97.8 F 12/08/20 11:04 Pulse 52 12/08/20 14:36 Resp 16 12/08/20 14:36 BP 103/50 L 12/08/20 14:36 Pulse Ox 100 12/08/20 14:36 Body Mass Index 21.2 Const: Other: Appears under the influence, easily arousable to voice General: cooperative and lethargic Orientation/consciousness: patient oriented x3 and lethargic HENMT: Head: Yes normal to inspection and Yes atraumatic Ears: hearing grossly normal bilaterally General nose exam: Normal external nose present Face and sinus: Yes normal facial exam Eyes: General: appearance normal, both eyes and all related structures Pupils: Pinpoint pupils bilaterally EOM: EOMs intact bilaterally Direct Ophthalmoscopy: normal light reflex Neck: Neck: Yes normal visual inspection and Yes no meningeal signs Resp: Effort & Inspection: normal respiratory effort Auscultation: clear to auscultation bilaterally, no rales, no rhonchi and no wheezes Cardio: Rate: regular rate Heart sounds: S1 normal heart sound present and S2 normal heart sound present GI: Inspection: Yes normal to inspection Palpation (GI): Soft to palpation, nontender, no guarding and not rigid Skin: Rashes: no rashes Wounds: no wounds Neuro: General: patient oriented x3, tone normal and no meningeal signs Extrem: General: Yes normal to inspection Course Course Course Narrative: -[id number]-- patient awake and alert tolerating p.o. radha jihan and crackers in the ED -162--patient is awake and alert, ambulating in the ED with steady gait. Plan for discharge MDM - Overdose MDM Narrative Medical decision making narrative: 50-year-old female with a past medical history of ETOH abuse, cocaine dependence, CVA, depression, insomnia, hyperlipidemia, PAF, PTSD, tobacco abuse, BIBA for accidental overdose [employer]. On exam vital signs stable, appears under the influence, lethargic, easily arousable to voice. No signs of trauma. Will continue to observe and reassess for clinical sobriety Medical Records Attestation: I reviewed the patient's medical records. Lab Data Attestation: I reviewed the patient's lab results. Labs: Lab Results 12/08/20 Range/Units 14:46 Urine Opiates Screen POSITIVE H (Not Detect) Ur Barbiturates Screen Not Detected (Not Detect) Ur Phencyclidine Scrn Not Detected (Not Detect) Ur Amphetamines Screen Not Detected (Not Detect) U Benzodiazepines Scrn Not Detected (Not Detect) Urine Cocaine Screen POSITIVE H (Not Detect) U Marijuana (THC) Screen POSITIVE H (Not Detect) Discharge Plan Discharge Clinical Impression: Drug overdose Patient Disposition: Home, Self-Care Instructions: Adult Overdose (ED) Additional Instructions: do not do drugs or drink alcohol it can kill you If you have any thoughts of hurting herself or hurting others please return to the ED immediately Follow up with her doctor Prescriptions: No Action ergocalciferol (vitamin D2) 1,250 mcg (50,000 unit) capsule 1 cap PO QWEEK RF: 0 atorvastatin 10 mg tablet 1 tab PO DAILY RF: 0 risperidone 4 mg tablet 1 tab PO DAILY RF: 0 quetiapine 100 mg tablet 1.5 tab PO BEDTIME RF: 0 trazodone 100 mg tablet 1.5 - 2 tab PO BEDTIME RF: 0 folic acid 1 mg tablet 1 tab PO DAILY RF: 0 lisinopril 5 mg tablet 1 tab PO DAILY RF: 0 diltiazem HCl 30 mg tablet 1 tab PO DAILY RF: 0 fluoxetine 20 mg capsule 1 cap PO DAILY RF: 0 Referrals: [facility] [Physician] - 2 days
[2020-12-08 11:04] VITALS: BP 106/44; PULSE 49; RESP 16; TEMP 36.6; O2SAT 96
[2020-12-08 14:36] VITALS: BP 103/50; PULSE 52; RESP 16; O2SAT 100
[2020-12-08 15:25] LABS: Amphetamine Screen Urine Not Detected (Not Detect); Barbiturates, Urine Not Detected (Not Detect); Benzodiazepines Screen Urine Not Detected (Not Detect); Cannabinoid Screen Urine POSITIVE (Not Detect); Cocaine Screen Urine POSITIVE (Not Detect); Opiate Screen Urine POSITIVE (Not Detect); Phencyclidine Screen Urine Not Detected (Not Detect)
--- NOTE | 2020-12-08 16:29 | PC.NURSE ---
Pt tolerating po well, ambulates w/ steady gait
== END 2020-12-08 16:44 | disposition home or self-care (01) ==
PROVIDERS: Physician Assistant; Emergency Provider Emergency Medicine
DX: T40.1X1A Poisoning by heroin, accidental (unintentional), initial encounter (principal); F14.20 Cocaine dependence, uncomplicated; F10.10 Alcohol abuse, uncomplicated; Y92.9 Unspecified place or not applicable; Z86.73 Personal history of transient ischemic attack (TIA), and cerebral infarction without residual deficits; Z79.899 Other long term (current) drug therapy
CPT/HCPCS: 71045; 80307; 99285

== ENCOUNTER 2020-12-17 08:43 | Outpatient (REF) | payer MEDICAID, SELFPAY ==
--- NOTE | ~2020-12-17 | US_ITS ---
EXAMINATION: ULTRASOUND-GUIDED FINE-NEEDLE ASPIRATION AND CORE BIOPSY LEFT PAROTID MASS. CLINICAL INFORMATION: Left parotid mass. COMPARISON: October 29, 2020 TECHNIQUE: Ultrasound-guided fine needle aspiration biopsy and core biopsy with 22-gauge biopsy needle. FINDINGS: Informed consent was obtained from the patient prior to the procedure. During this process, the procedure and potential alternatives were explained, along with the intended outcome and benefits. The risks of the procedure, as well as the risk of not doing the procedure, were discussed. The patient was given the opportunity to ask questions regarding the procedure and appeared competent to make medical decisions. A signed consent form which documents this discussion was placed in the medical record. Using sterile technique and ultrasound guidance 3 passes with 25-gauge hypodermic needles were made into the left parotid gland solid mass. Following this a single 22-gauge core biopsy was obtained. Patient tolerated procedure without difficulty. Preliminary cytologic result was of an adequate specimen. US/US biopsy lymph node IMPRESSION: Left parotid gland mass biopsy as described.
--- NOTE | ~2020-12-17 | US_ITS ---
EXAMINATION: ULTRASOUND-GUIDED FINE-NEEDLE ASPIRATION AND CORE BIOPSY LEFT PAROTID MASS. CLINICAL INFORMATION: Left parotid mass. COMPARISON: October 29, 2020 TECHNIQUE: Ultrasound-guided fine needle aspiration biopsy and core biopsy with 22-gauge biopsy needle. FINDINGS: Informed consent was obtained from the patient prior to the procedure. During this process, the procedure and potential alternatives were explained, along with the intended outcome and benefits. The risks of the procedure, as well as the risk of not doing the procedure, were discussed. The patient was given the opportunity to ask questions regarding the procedure and appeared competent to make medical decisions. A signed consent form which documents this discussion was placed in the medical record. Using sterile technique and ultrasound guidance 3 passes with 25-gauge hypodermic needles were made into the left parotid gland solid mass. Following this a single 22-gauge core biopsy was obtained. Patient tolerated procedure without difficulty. Preliminary cytologic result was of an adequate specimen. US/US guided fine needle asp IMPRESSION: Left parotid gland mass biopsy as described.
[2020-12-17] MEDS: Lidocaine HCl 1 % MPF 5 ML VIAL SUBCUT (10:26)
== END 2020-12-17 08:44 | disposition home or self-care (01) ==
LOC: HO.US 08:43
PROVIDERS: Visit Provider Internal Medicine Medical Oncology
DX: D11.0 Benign neoplasm of parotid gland (principal)
CPT/HCPCS: 10005; 38505; 42400; 76857; 76942; 88172; 88173; 88177; 88305

== ENCOUNTER 2022-04-05 14:25 | Inpatient (IN) | payer MEDICAID, SELFPAY ==
[2022-04-05] VITALS (9 sets, daily range): BP systolic 96–159; BP diastolic 57–90; PULSE 105–142; RESP 18–26; TEMP 35.8–36.8; O2SAT 94–99; BMI 22.6
--- NOTE | ~2022-04-05 | XR_ITS ---
EXAMINATION: XR CHEST CLINICAL INFORMATION: Cough and shortness of breath COMPARISON: None TECHNIQUE: Frontal view of the chest was obtained. FINDINGS: Diffuse right lung interstitial infiltrate. Slight elevation of the right hemidiaphragm may reflect a subpulmonic effusion. Left lung grossly clear. Heart borderline size with normal caliber pulmonary vessels. No evidence for congestive change. XR/XR chest 1V IMPRESSION: Right lung interstitial infiltrate may reflect edema or pneumonia. Right subpulmonic effusion.
--- NOTE | ~2022-04-05 | CT_ITS ---
EXAMINATION: CT ABDOMEN AND PELVIS WITHOUT CONTRAST CLINICAL INFORMATION: Abdominal distention COMPARISON: CT abdomen and pelvis 08/29/2008 TECHNIQUE: Multidetector volumetric imaging was performed from the superior aspect of the liver through the pubic symphysis. Sagittal and coronal reformatted images were obtained on the technologist's workstation. This CT examination was performed using dose optimization techniques as appropriate, variously including the following: *Automated exposure control *Adjustment of mA and/or kV according to patient size (this includes techniques or standardized protocols for targeted exams where dose is matched to indication/reason for exam; i.e. extremities or head) *Use of iterative reconstruction technique DLP: 503 mGy-cm FINDINGS: LUNG BASES: Small moderate-sized right and small left pleural effusions. Minimal dependent bibasilar atelectasis. Mild biatrial cardiac enlargement. LIVER, GALLBLADDER, AND BILIARY TREE: Prominence of the left liver lobe and slight prominence of the caudate. No gross liver lesion. No biliary ductal dilation. Gallbladder is grossly unremarkable-limited assessment due to surrounding ascites. No calcified gallstones. PANCREAS: Unremarkable. SPLEEN: Unremarkable. ADRENAL GLANDS: Unremarkable. KIDNEYS AND URETERS: The kidneys are normal in size, shape, and attenuation. No hydronephrosis, hydroureter, or calculi seen. Mild nonspecific bilateral perirenal fascial stranding. BLADDER: Incompletely distended and grossly unremarkable. GASTROINTESTINAL TRACT: No dilated bowel loops. No bowel wall thickening. Sigmoid diverticulosis. No evidence of acute diverticulitis. Appendix not discretely visualized. Small moderate volume ascites. No free air. ABDOMINAL WALL: No significant hernia is appreciated. Mild body wall edema/anasarca. LYMPH NODES: No lymphadenopathy. Multiple surgical clips along the right common iliac emilee chain and left hemipelvis. VASCULAR: Normal caliber abdominal aorta. Relatively extensive vascular calcifications. PELVIC VISCERA: Status post hysterectomy. OSSEOUS STRUCTURES: No acute fracture or suspicious osseous lesion. Mild degenerative disc disease at L5-S1. CT/CT abdomen pelvis wo IV con IMPRESSION: 1. Small to moderate volume ascites. 2. Small to moderate-sized right and small left pleural effusions. 3. No evidence of bowel obstruction or other acute intra-abdominal process. 4. Sigmoid diverticulosis. No evidence of acute diverticulitis.
--- NOTE | 2022-04-05 14:56 | ED.GENADULT ---
HPI - General Adult General Chief complaint: Dyspnea <Candy Nash MD - Last Filed: 04/05/22 15:06> Stated complaint: SOB/Diarrhea x7 Days <Candy Nash MD - Last Filed: 04/05/22 15:06> Time Seen by Provider: 04/05/22 16:58 <Candy Nash MD - Last Filed: 04/05/22 15:06> Source: patient <Jeremy Brooks MD - Last Filed: 04/06/22 01:03> Mode of arrival: ambulatory <Jeremy Brooks MD - Last Filed: 04/06/22 01:03> Limitations: no limitations <Jeremy Brooks MD - Last Filed: 04/06/22 01:03> History of Present Illness HPI narrative: Patient history of polysubstance abuse history of toxic encephalopathy right cerebellar CVA paroxysmal AFib on Eliquis alcohol abuse, depression, PTSD ,parotid mass smoker comes here for 1 week of shortness of breath and diarrhea patient also felt palpitation off and on no chest pain no fever or chills. Patient has been having 6-7 times watery stool a day no nausea no feel abdomen bloated. No leg swelling denies use of alcohol or drugs for last [address] patient heart rate was 142 <Jeremy Brooks MD - Last Filed: 04/06/22 01:03> Related Data Home medications: Home Medications Medication Instructions Recorded Confirmed diltiazem HCl 30 mg tablet 1 tab PO DAILY 10/29/20 04/05/22 fluoxetine 20 mg capsule 1 cap PO DAILY 10/29/20 04/05/22 folic acid 1 mg tablet 1 tab PO DAILY 10/29/20 04/05/22 lisinopril 5 mg tablet 1 tab PO DAILY 10/29/20 04/05/22 apixaban 5 mg tablet (Eliquis) 1 tab PO BID 04/05/22 04/05/22 cholecalciferol (vitamin D3) 25 25 mcg PO DAILY 04/05/22 04/05/22 mcg (1,000 unit) tablet <Candy Nash MD - Last Filed: 04/05/22 15:06> Allergies/adverse reactions: Allergies Allergy/AdvReac Type Severity Reaction Status Date / Time codeine Allergy Nausea and Verified 12/11/20 12:04 Vomiting <Candy Nash MD - Last Filed: 04/05/22 15:06> Review of Systems Review of Systems: Yes all other systems are reviewed and are negative <Jeremy Brooks MD - Last Filed: 04/06/22 01:03> [facility] Past Medical History Medical History: Medical History Alcoholism Cocaine dependence CVA (cerebral vascular accident) Depression Disorder of bone and articular cartilage Hx of ovarian cancer Insomnia Mixed hyperlipidemia Nasal congestion Osteopenia PAF (paroxysmal atrial fibrillation) PTSD (post-traumatic stress disorder) Tobacco abuse <Candy Nash MD - Last Filed: 04/05/22 15:06> Surgical History: Surgical History Hx of hysterectomy <Candy Nash MD - Last Filed: 04/05/22 15:06> Family History Family History: Family History Maternal Grandmother Breast cancer Mother DVT (deep venous thrombosis) Diabetes <Candy Nash MD - Last Filed: 04/05/22 15:06> Social History Social History: Social History Household Members: Unknown / Unable to assess Housing: Unknown / Unable to assess Alcohol intake: never Patient Tobacco Use Status: Current everyday Tobacco user Cigarette Packs Per Day: 0.5 Smoked in Last 30 Days: Yes Use of substances other than those prescribed or required for medical reasons: No Substance Use Type: Heroin Advance Directives: No Advance Directives Information Provided: Yes service: No Current occupational status: unemployed <Candy Nash MD - Last Filed: 04/05/22 15:06> Physical Exam ED Vital Signs: Vital Signs - 24 hr 04/05/22 14:57 04/05/22 17:34 04/05/22 18:43 Temperature 98.3 F 97.5 F 96.4 F L Pulse Rate 142 H 118 H 131 H Respiratory Rate 18 24 H 22 H Blood Pressure 159/59 H 106/57 L 96/78 Pulse Oximetry 97 94 95 Oxygen Delivery Method Room Air Room Air Room Air 04/05/22 19:09 04/05/22 20:00 Temperature 97.5 F Pulse Rate 125 H 107 H Respiratory Rate 23 H 20 Blood Pressure 113/76 112/86 Pulse Oximetry 95 97 Oxygen Delivery Method Room Air Room Air BMI result Body Mass Index 22.6 <Candy Nash MD - Last Filed: 04/05/22 15:06> Vital Signs - 24 hr 04/05/22 14:57 04/05/22 17:34 04/05/22 18:43 Temperature 98.3 F 97.5 F 96.4 F L Pulse Rate 142 H 118 H 131 H Respiratory Rate 18 24 H 22 H Blood Pressure 159/59 H 106/57 L 96/78 Pulse Oximetry 97 94 95 Oxygen Delivery Method Room Air Room Air Room Air 04/05/22 19:09 04/05/22 20:00 Temperature 97.5 F Pulse Rate 125 H 107 H Respiratory Rate 23 H 20 Blood Pressure 113/76 112/86 Pulse Oximetry 95 97 Oxygen Delivery Method Room Air Room Air BMI result Body Mass Index 22.6 <Jeremy Brooks MD - Last Filed: 04/06/22 01:03> Appearance: Alert. Oriented X3. No acute distress. Eyes: PERRLA, No Nystagmus, pallor+ ENT: Pharynx normal. Oral Mucosa moist Neck: Normal inspection. Neck supple. CVS: Irregular irregular tachycardic Pulses normal. Respiratory: No respiratory distress. Equal air entry bilateral, bilateral prolonged expiration with wheezing Abdomen: Soft and nontender. Bowel sounds are present, no mass palpable, no CVA tenderness Skin: Skin warm and dry. Normal skin color. Normal skin turgor. Extremities: No lower extremity edema. No calf tenderness Neuro: Oriented X 3. No motor deficit. No sensory deficit.No cerebellar signs , cranial nerves II-XII intact <Jeremy Brooks MD - Last Filed: 04/06/22 01:03> Course Course Course Narrative: [facility] triage: -c/o sob for 7 days, no hx or copd, no CP, c/o abdominal bloating, 7 days diarrhea, states she has had blood in the stool, last time saw blood in stool was yesterday -c/o sob worse when lying flat and with walking up the stairs, has been coughing 7 days, no fever -denies syncope, c/o rapid HR, c/o sob, pt has hx of ovarian ca in remission, hx histerectomy 1984, had chemo -labs, ekg, imaging pending: CXr, abd CT -PE: tachycardic in the 140s at rest, no fever, no wheeznig, mild bilateral crackels, no LE edema <Candy Nash MD - Last Filed: 04/05/22 15:06> Medications Administered Generic Name Dose Route Start Last Admin Trade Name Freq PRN Reason Stop Dose Admin Furosemide 40 mg 04/05/22 20:15 04/05/22 21:11 Furosemide 40 Mg/4 Ml Vial IVPUSH 40 mg BID@0900,1800 DIANA Administration Protocol Diltiazem HCl 125 mg/ Sodium 125 mls @ 0 mls/hr 04/05/22 19:15 04/05/22 19:37 Chloride IVCONT 10 mg/hr .Q0M DIANA 10 mls/hr Administration Protocol Per Protocol Discontinued Medications Generic Name Dose Route Start Last Admin Trade Name Freq PRN Reason Stop Dose Admin Diltiazem HCl 10 mg 04/05/22 17:18 04/05/22 17:32 Diltiazem Hcl 50 Mg/10 Ml Vial IVPUSH 04/05/22 17:19 10 mg STAT STA Administration Furosemide 20 mg 04/05/22 17:13 04/05/22 17:28 Furosemide 20 Mg/2 Ml Vial IVPUSH 04/05/22 17:14 20 mg ONCE ONE Administration Protocol Ceftriaxone Sodium 1 gm/ 50 mls @ 100 mls/hr 04/05/22 17:13 04/05/22 18:10 Sodium Chloride IV 04/05/22 17:42 Infused ONCE ONE Infusion Zolpidem Tartrate 5 mg 04/05/22 21:15 04/05/22 22:48 Zolpidem Tartrate 5 Mg Tablet PO 04/05/22 21:16 5 mg ONCE ONE Administration <Candy Nash MD - Last Filed: 04/05/22 15:06> Medications Administered Generic Name Dose Route Start Last Admin Trade Name Freq PRN Reason Stop Dose Admin Furosemide 40 mg 04/05/22 20:15 04/05/22 21:11 Furosemide 40 Mg/4 Ml Vial IVPUSH 40 mg BID@0900,1800 DIANA Administration Protocol Diltiazem HCl 125 mg/ Sodium 125 mls @ 0 mls/hr 04/05/22 19:15 04/05/22 19:37 Chloride IVCONT 10 mg/hr .Q0M DIANA 10 mls/hr Administration Protocol Per Protocol Discontinued Medications Generic Name Dose Route Start Last Admin Trade Name Lex PRN Reason Stop Dose Admin Diltiazem HCl 10 mg 04/05/22 17:18 04/05/22 17:32 Diltiazem Hcl 50 Mg/10 Ml Vial IVPUSH 04/05/22 17:19 10 mg STAT STA Administration Furosemide 20 mg 04/05/22 17:13 04/05/22 17:28 Furosemide 20 Mg/2 Ml Vial IVPUSH 04/05/22 17:14 20 mg ONCE ONE Administration Protocol Ceftriaxone Sodium 1 gm/ 50 mls @ 100 mls/hr 04/05/22 17:13 04/05/22 18:10 Sodium Chloride IV 04/05/22 17:42 Infused ONCE ONE Infusion Zolpidem Tartrate 5 mg 04/05/22 21:15 04/05/22 22:48 Zolpidem Tartrate 5 Mg Tablet PO 04/05/22 21:16 5 mg ONCE ONE Administration <Jeremy Brooks MD - Last Filed: 04/06/22 01:03> Medical Decision Making MDM Narrative Medical decision making narrative: Patient with AFib with fast ventricular rate with increased shortness of breath with elevated BNP chest x-ray with possible right lung interstitial infiltrate versus fluid clinically patient has CHF with normal WBC level. Patient is on Eliquis started on Cardizem drip admit patient for IV diuresis atrial fibrillation with RVR patient has elevated lactic acid which is not from sepsis is from congestive heart failure fluids were restricted because of CHF as the primary diagnosis of the patient was given pending blood culture <Jeremy Brooks MD - Last Filed: 04/06/22 01:03> Lab Data Lab results reviewed: Yes I reviewed the patient's lab results. <Jeremy Brooks MD - Last Filed: 04/06/22 01:03> Result diagrams: : 04/05/22 15:50 04/05/22 15:50 <Candy Nash MD - Last Filed: 04/05/22 15:06> Labs: Lab Results 04/05/22 04/05/22 04/05/22 Range/Units 15:50 15:50 15:50 WBC 7.7 (4.8-10.8) X10*3/uL RBC 4.60 (4.20-5.50) X10*6/uL Hgb 13.4 (12.0-16.0) g/dl Hct 41.6 (37.0-47.0) % MCV 90.4 (80.0-98.0) fL MCH 29.1 (27.0-33.0) pg MCHC 32.2 (31.0-35.0) g/dl RDW 15.1 (11.0-16.0) % Plt Count 199 (160-400) X10*3/uL MPV 12.1 (9.4-12.3) fL Immature Gran % (Auto) 0.1 (0.0-0.4) % Neut % (Auto) 62.2 (45-73) % Lymph % (Auto) 30.2 (20-40) % Ocean % (Auto) 6.4 (2-11) % Eos % (Auto) 0.3 (0-4) % Baso % (Auto) 0.8 (0-2) % Lymph # (Auto) 2.3 (1.2-4.9) X10*3/uL Ocean # (Auto) 0.5 (0.1-1.2) X10*3/uL Eos # (Auto) 0.0 (0.0-0.4) X10*3/uL Baso # (Auto) 0.1 (0.0-0.2) X10*3/uL Abs Immat Gran (auto) 0.01 (0.00-0.03) X10*3/uL Absolute Neuts (auto) 4.8 (2.0-8.3) x10*3/uL Absolute Nucleated RBC 0.000 (0.0-0.012) X10*3/uL Nucleated RBC % (auto) 0.0 (0.0-0.2) /100WBC Smear Tech's Comments VERIFIED PT 30.7 H (10.0-13.1) SEC INR 2.6 H (0.9-1.1) D-Dimer High Sensitivty 1031 NG/ML VBG pH (7.32-7.43) VBG pCO2 mmHg VBG pO2 mmHg VBG HCO3 (22-26) mmol/L VBG O2 Saturation % VBG Base Excess mmol/L Sodium 138 (135-145) mmol/L Potassium 4.8 (3.3-5.1) mmol/L Chloride 104 (96-108) mmol/L Carbon Dioxide 19 L (22-29) mmol/L Anion Gap 20 (12-20) BUN 18 H (9-16) mg/dL Creatinine 0.98 (0.5-1.4) mg/dL Estim Creat Clear Calc 54.9 Estimated GFR 59 Random Glucose 134 H (60-115) mg/dL Lactic Acid (0.5-2.0) mmol/L Lactic Acid F/U @ 2Hr (0.5-2.0) mmol/L Calcium 9.4 (8.4-10.2) mg/dL Total Bilirubin 1.5 H (0.0-1.0) mg/dL Direct Bilirubin 0.9 H (0.0-0.5) mg/dL AST 18 D (5-31) U/L ALT 24 (0-31) U/L Alkaline Phosphatase 139 H (39-117) U/L Troponin I High Sens (<3.5-17.0) ng/L B-Natriuretic Peptide (<100) pg/mL Total Protein 6.1 L (6.5-8.0) g/dL Albumin 3.8 (3.5-5.0) g/dL COVID-19 ([facility]) (Negative) COVID-19 Clin Com Influenza Type A (PCR) (Negative) Influenza Type B (PCR) (Negative) RSV RNA Qual (PCR) (Negative) SARS-CoV-2 RNA (RT-PCR) (Negative) 04/05/22 04/05/22 04/05/22 Range/Units 15:50 15:50 15:50 WBC (4.8-10.8) X10*3/uL RBC (4.20-5.50) X10*6/uL Hgb (12.0-16.0) g/dl Hct (37.0-47.0) % MCV (80.0-98.0) fL MCH (27.0-33.0) pg MCHC (31.0-35.0) g/dl RDW (11.0-16.0) % Plt Count (160-400) X10*3/uL MPV (9.4-12.3) fL Immature Gran % (Auto) (0.0-0.4) % Neut % (Auto) (45-73) % Lymph % (Auto) (20-40) % Ocean % (Auto) (2-11) % Eos % (Auto) (0-4) % Baso % (Auto) (0-2) % Lymph # (Auto) (1.2-4.9) X10*3/uL Ocean # (Auto) (0.1-1.2) X10*3/uL Eos # (Auto) (0.0-0.4) X10*3/uL Baso # (Auto) (0.0-0.2) X10*3/uL Abs Immat Gran (auto) (0.00-0.03) X10*3/uL Absolute Neuts (auto) (2.0-8.3) x10*3/uL Absolute Nucleated RBC (0.0-0.012) X10*3/uL Nucleated RBC % (auto) (0.0-0.2) /100WBC Smear Tech's Comments PT (10.0-13.1) SEC INR (0.9-1.1) D-Dimer High Sensitivty NG/ML VBG pH (7.32-7.43) VBG pCO2 mmHg VBG pO2 mmHg VBG HCO3 (22-26) mmol/L VBG O2 Saturation % VBG Base Excess mmol/L Sodium (135-145) mmol/L Potassium (3.3-5.1) mmol/L Chloride (96-108) mmol/L Carbon Dioxide (22-29) mmol/L Anion Gap (12-20) BUN (9-16) mg/dL Creatinine (0.5-1.4) mg/dL Estim Creat Clear Calc Estimated GFR Random Glucose (60-115) mg/dL Lactic Acid (0.5-2.0) mmol/L Lactic Acid F/U @ 2Hr (0.5-2.0) mmol/L Calcium (8.4-10.2) mg/dL Total Bilirubin (0.0-1.0) mg/dL Direct Bilirubin (0.0-0.5) mg/dL AST (5-31) U/L ALT (0-31) U/L Alkaline Phosphatase (39-117) U/L Troponin I High Sens 91.0 H* (<3.5-17.0) ng/L B-Natriuretic Peptide 2823 H (<100) pg/mL Total Protein (6.5-8.0) g/dL Albumin (3.5-5.0) g/dL COVID-19 ([facility]) Negative (Negative) COVID-19 Clin Com See Note Influenza Type A (PCR) (Negative) Influenza Type B (PCR) (Negative) RSV RNA Qual (PCR) (Negative) SARS-CoV-2 RNA (RT-PCR) (Negative) 04/05/22 04/05/22 04/05/22 Range/Units 15:50 15:57 17:37 WBC (4.8-10.8) X10*3/uL RBC (4.20-5.50) X10*6/uL Hgb (12.0-16.0) g/dl Hct (37.0-47.0) % MCV (80.0-98.0) fL MCH (27.0-33.0) pg MCHC (31.0-35.0) g/dl RDW (11.0-16.0) % Plt Count (160-400) X10*3/uL MPV (9.4-12.3) fL Immature Gran % (Auto) (0.0-0.4) % Neut % (Auto) (45-73) % Lymph % (Auto) (20-40) % Ocean % (Auto) (2-11) % Eos % (Auto) (0-4) % Baso % (Auto) (0-2) % Lymph # (Auto) (1.2-4.9) X10*3/uL Ocean # (Auto) (0.1-1.2) X10*3/uL Eos # (Auto) (0.0-0.4) X10*3/uL Baso # (Auto) (0.0-0.2) X10*3/uL Abs Immat Gran (auto) (0.00-0.03) X10*3/uL Absolute Neuts (auto) (2.0-8.3) x10*3/uL Absolute Nucleated RBC (0.0-0.012) X10*3/uL Nucleated RBC % (auto) (0.0-0.2) /100WBC Smear Tech's Comments PT (10.0-13.1) SEC INR (0.9-1.1) D-Dimer High Sensitivty NG/ML VBG pH 7.45 H (7.32-7.43) VBG pCO2 34 mmHg VBG pO2 49 mmHg VBG HCO3 23 (22-26) mmol/L VBG O2 Saturation 73.0 % VBG Base Excess 0.4 mmol/L Sodium (135-145) mmol/L Potassium (3.3-5.1) mmol/L Chloride (96-108) mmol/L Carbon Dioxide (22-29) mmol/L Anion Gap (12-20) BUN (9-16) mg/dL Creatinine (0.5-1.4) mg/dL Estim Creat Clear Calc Estimated GFR Random Glucose (60-115) mg/dL Lactic Acid 2.8 H* (0.5-2.0) mmol/L Lactic Acid F/U @ 2Hr (0.5-2.0) mmol/L Calcium (8.4-10.2) mg/dL Total Bilirubin (0.0-1.0) mg/dL Direct Bilirubin (0.0-0.5) mg/dL AST (5-31) U/L ALT (0-31) U/L Alkaline Phosphatase (39-117) U/L Troponin I High Sens (<3.5-17.0) ng/L B-Natriuretic Peptide (<100) pg/mL Total Protein (6.5-8.0) g/dL Albumin (3.5-5.0) g/dL COVID-19 ([facility]) (Negative) COVID-19 Clin Com Influenza Type A (PCR) NEGATIVE (Negative) Influenza Type B (PCR) NEGATIVE (Negative) RSV RNA Qual (PCR) NEGATIVE (Negative) SARS-CoV-2 RNA (RT-PCR) NEGATIVE (Negative) 04/05/22 Range/Units 18:09 WBC (4.8-10.8) X10*3/uL RBC (4.20-5.50) X10*6/uL Hgb (12.0-16.0) g/dl Hct (37.0-47.0) % MCV (80.0-98.0) fL MCH (27.0-33.0) pg MCHC (31.0-35.0) g/dl RDW (11.0-16.0) % Plt Count (160-400) X10*3/uL MPV (9.4-12.3) fL Immature Gran % (Auto) (0.0-0.4) % Neut % (Auto) (45-73) % Lymph % (Auto) (20-40) % Ocean % (Auto) (2-11) % Eos % (Auto) (0-4) % Baso % (Auto) (0-2) % Lymph # (Auto) (1.2-4.9) X10*3/uL Ocean # (Auto) (0.1-1.2) X10*3/uL Eos # (Auto) (0.0-0.4) X10*3/uL Baso # (Auto) (0.0-0.2) X10*3/uL Abs Immat Gran (auto) (0.00-0.03) X10*3/uL Absolute Neuts (auto) (2.0-8.3) x10*3/uL Absolute Nucleated RBC (0.0-0.012) X10*3/uL Nucleated RBC % (auto) (0.0-0.2) /100WBC Smear Tech's Comments PT (10.0-13.1) SEC INR (0.9-1.1) D-Dimer High Sensitivty NG/ML VBG pH (7.32-7.43) VBG pCO2 mmHg VBG pO2 mmHg VBG HCO3 (22-26) mmol/L VBG O2 Saturation % VBG Base Excess mmol/L Sodium (135-145) mmol/L Potassium (3.3-5.1) mmol/L Chloride (96-108) mmol/L Carbon Dioxide (22-29) mmol/L Anion Gap (12-20) BUN (9-16) mg/dL Creatinine (0.5-1.4) mg/dL Estim Creat Clear Calc Estimated GFR Random Glucose (60-115) mg/dL Lactic Acid (0.5-2.0) mmol/L Lactic Acid F/U @ 2Hr 3.3 H* (0.5-2.0) mmol/L Calcium (8.4-10.2) mg/dL Total Bilirubin (0.0-1.0) mg/dL Direct Bilirubin (0.0-0.5) mg/dL AST (5-31) U/L ALT (0-31) U/L Alkaline Phosphatase (39-117) U/L Troponin I High Sens (<3.5-17.0) ng/L B-Natriuretic Peptide (<100) pg/mL Total Protein (6.5-8.0) g/dL Albumin (3.5-5.0) g/dL COVID-19 ([facility]) (Negative) COVID-19 Clin Com Influenza Type A (PCR) (Negative) Influenza Type B (PCR) (Negative) RSV RNA Qual (PCR) (Negative) SARS-CoV-2 RNA (RT-PCR) (Negative) <Candy Nash MD - Last Filed: 04/05/22 15:06> Lab Results 04/05/22 04/05/22 04/05/22 Range/Units 15:50 15:50 15:50 WBC 7.7 (4.8-10.8) X10*3/uL RBC 4.60 (4.20-5.50) X10*6/uL Hgb 13.4 (12.0-16.0) g/dl Hct 41.6 (37.0-47.0) % MCV 90.4 (80.0-98.0) fL MCH 29.1 (27.0-33.0) pg MCHC 32.2 (31.0-35.0) g/dl RDW 15.1 (11.0-16.0) % Plt Count 199 (160-400) X10*3/uL MPV 12.1 (9.4-12.3) fL Immature Gran % (Auto) 0.1 (0.0-0.4) % Neut % (Auto) 62.2 (45-73) % Lymph % (Auto) 30.2 (20-40) % Ocean % (Auto) 6.4 (2-11) % Eos % (Auto) 0.3 (0-4) % Baso % (Auto) 0.8 (0-2) % Lymph # (Auto) 2.3 (1.2-4.9) X10*3/uL Ocean # (Auto) 0.5 (0.1-1.2) X10*3/uL Eos # (Auto) 0.0 (0.0-0.4) X10*3/uL Baso # (Auto) 0.1 (0.0-0.2) X10*3/uL Abs Immat Gran (auto) 0.01 (0.00-0.03) X10*3/uL Absolute Neuts (auto) 4.8 (2.0-8.3) x10*3/uL Absolute Nucleated RBC 0.000 (0.0-0.012) X10*3/uL Nucleated RBC % (auto) 0.0 (0.0-0.2) /100WBC Smear Tech's Comments VERIFIED PT 30.7 H (10.0-13.1) SEC INR 2.6 H (0.9-1.1) D-Dimer High Sensitivty 1031 NG/ML VBG pH (7.32-7.43) VBG pCO2 mmHg VBG pO2 mmHg VBG HCO3 (22-26) mmol/L VBG O2 Saturation % VBG Base Excess mmol/L Sodium 138 (135-145) mmol/L Potassium 4.8 (3.3-5.1) mmol/L Chloride 104 (96-108) mmol/L Carbon Dioxide 19 L (22-29) mmol/L Anion Gap 20 (12-20) BUN 18 H (9-16) mg/dL Creatinine 0.98 (0.5-1.4) mg/dL Estim Creat Clear Calc 54.9 Estimated GFR 59 Random Glucose 134 H (60-115) mg/dL Lactic Acid (0.5-2.0) mmol/L Lactic Acid F/U @ 2Hr (0.5-2.0) mmol/L Calcium 9.4 (8.4-10.2) mg/dL Total Bilirubin 1.5 H (0.0-1.0) mg/dL Direct Bilirubin 0.9 H (0.0-0.5) mg/dL AST 18 D (5-31) U/L ALT 24 (0-31) U/L Alkaline Phosphatase 139 H (39-117) U/L Troponin I High Sens (<3.5-17.0) ng/L B-Natriuretic Peptide (<100) pg/mL Total Protein 6.1 L (6.5-8.0) g/dL Albumin 3.8 (3.5-5.0) g/dL COVID-19 ([facility]) (Negative) COVID-19 Clin Com Influenza Type A (PCR) (Negative) Influenza Type B (PCR) (Negative) RSV RNA Qual (PCR) (Negative) SARS-CoV-2 RNA (RT-PCR) (Negative) 04/05/22 04/05/22 04/05/22 Range/Units 15:50 15:50 15:50 WBC (4.8-10.8) X10*3/uL RBC (4.20-5.50) X10*6/uL Hgb (12.0-16.0) g/dl Hct (37.0-47.0) % MCV (80.0-98.0) fL MCH (27.0-33.0) pg MCHC (31.0-35.0) g/dl RDW (11.0-16.0) % Plt Count (160-400) X10*3/uL MPV (9.4-12.3) fL Immature Gran % (Auto) (0.0-0.4) % Neut % (Auto) (45-73) % Lymph % (Auto) (20-40) % Ocean % (Auto) (2-11) % Eos % (Auto) (0-4) % Baso % (Auto) (0-2) % Lymph # (Auto) (1.2-4.9) X10*3/uL Ocean # (Auto) (0.1-1.2) X10*3/uL Eos # (Auto) (0.0-0.4) X10*3/uL Baso # (Auto) (0.0-0.2) X10*3/uL Abs Immat Gran (auto) (0.00-0.03) X10*3/uL Absolute Neuts (auto) (2.0-8.3) x10*3/uL Absolute Nucleated RBC (0.0-0.012) X10*3/uL Nucleated RBC % (auto) (0.0-0.2) /100WBC Smear Tech's Comments PT (10.0-13.1) SEC INR (0.9-1.1) D-Dimer High Sensitivty NG/ML VBG pH (7.32-7.43) VBG pCO2 mmHg VBG pO2 mmHg VBG HCO3 (22-26) mmol/L VBG O2 Saturation % VBG Base Excess mmol/L Sodium (135-145) mmol/L Potassium (3.3-5.1) mmol/L Chloride (96-108) mmol/L Carbon Dioxide (22-29) mmol/L Anion Gap (12-20) BUN (9-16) mg/dL Creatinine (0.5-1.4) mg/dL Estim Creat Clear Calc Estimated GFR Random Glucose (60-115) mg/dL Lactic Acid (0.5-2.0) mmol/L Lactic Acid F/U @ 2Hr (0.5-2.0) mmol/L Calcium (8.4-10.2) mg/dL Total Bilirubin (0.0-1.0) mg/dL Direct Bilirubin (0.0-0.5) mg/dL AST (5-31) U/L ALT (0-31) U/L Alkaline Phosphatase (39-117) U/L Troponin I High Sens 91.0 H* (<3.5-17.0) ng/L B-Natriuretic Peptide 2823 H (<100) pg/mL Total Protein (6.5-8.0) g/dL Albumin (3.5-5.0) g/dL COVID-19 ([facility]) Negative (Negative) COVID-19 Clin Com See Note Influenza Type A (PCR) (Negative) Influenza Type B (PCR) (Negative) RSV RNA Qual (PCR) (Negative) SARS-CoV-2 RNA (RT-PCR) (Negative) 04/05/22 04/05/22 04/05/22 Range/Units 15:50 15:57 17:37 WBC (4.8-10.8) X10*3/uL RBC (4.20-5.50) X10*6/uL Hgb (12.0-16.0) g/dl Hct (37.0-47.0) % MCV (80.0-98.0) fL MCH (27.0-33.0) pg MCHC (31.0-35.0) g/dl RDW (11.0-16.0) % Plt Count (160-400) X10*3/uL MPV (9.4-12.3) fL Immature Gran % (Auto) (0.0-0.4) % Neut % (Auto) (45-73) % Lymph % (Auto) (20-40) % Ocean % (Auto) (2-11) % Eos % (Auto) (0-4) % Baso % (Auto) (0-2) % Lymph # (Auto) (1.2-4.9) X10*3/uL Ocean # (Auto) (0.1-1.2) X10*3/uL Eos # (Auto) (0.0-0.4) X10*3/uL Baso # (Auto) (0.0-0.2) X10*3/uL Abs Immat Gran (auto) (0.00-0.03) X10*3/uL Absolute Neuts (auto) (2.0-8.3) x10*3/uL Absolute Nucleated RBC (0.0-0.012) X10*3/uL Nucleated RBC % (auto) (0.0-0.2) /100WBC Smear Tech's Comments PT (10.0-13.1) SEC INR (0.9-1.1) D-Dimer High Sensitivty NG/ML VBG pH 7.45 H (7.32-7.43) VBG pCO2 34 mmHg VBG pO2 49 mmHg VBG HCO3 23 (22-26) mmol/L VBG O2 Saturation 73.0 % VBG Base Excess 0.4 mmol/L Sodium (135-145) mmol/L Potassium (3.3-5.1) mmol/L Chloride (96-108) mmol/L Carbon Dioxide (22-29) mmol/L Anion Gap (12-20) BUN (9-16) mg/dL Creatinine (0.5-1.4) mg/dL Estim Creat Clear Calc Estimated GFR Random Glucose (60-115) mg/dL Lactic Acid 2.8 H* (0.5-2.0) mmol/L Lactic Acid F/U @ 2Hr (0.5-2.0) mmol/L Calcium (8.4-10.2) mg/dL Total Bilirubin (0.0-1.0) mg/dL Direct Bilirubin (0.0-0.5) mg/dL AST (5-31) U/L ALT (0-31) U/L Alkaline Phosphatase (39-117) U/L Troponin I High Sens (<3.5-17.0) ng/L B-Natriuretic Peptide (<100) pg/mL Total Protein (6.5-8.0) g/dL Albumin (3.5-5.0) g/dL COVID-19 ([facility]) (Negative) COVID-19 Clin Com Influenza Type A (PCR) NEGATIVE (Negative) Influenza Type B (PCR) NEGATIVE (Negative) RSV RNA Qual (PCR) NEGATIVE (Negative) SARS-CoV-2 RNA (RT-PCR) NEGATIVE (Negative) 04/05/22 Range/Units 18:09 WBC (4.8-10.8) X10*3/uL RBC (4.20-5.50) X10*6/uL Hgb (12.0-16.0) g/dl Hct (37.0-47.0) % MCV (80.0-98.0) fL MCH (27.0-33.0) pg MCHC (31.0-35.0) g/dl RDW (11.0-16.0) % Plt Count (160-400) X10*3/uL MPV (9.4-12.3) fL Immature Gran % (Auto) (0.0-0.4) % Neut % (Auto) (45-73) % Lymph % (Auto) (20-40) % Ocean % (Auto) (2-11) % Eos % (Auto) (0-4) % Baso % (Auto) (0-2) % Lymph # (Auto) (1.2-4.9) X10*3/uL Ocean # (Auto) (0.1-1.2) X10*3/uL Eos # (Auto) (0.0-0.4) X10*3/uL Baso # (Auto) (0.0-0.2) X10*3/uL Abs Immat Gran (auto) (0.00-0.03) X10*3/uL Absolute Neuts (auto) (2.0-8.3) x10*3/uL Absolute Nucleated RBC (0.0-0.012) X10*3/uL Nucleated RBC % (auto) (0.0-0.2) /100WBC Smear Tech's Comments PT (10.0-13.1) SEC INR (0.9-1.1) D-Dimer High Sensitivty NG/ML VBG pH (7.32-7.43) VBG pCO2 mmHg VBG pO2 mmHg VBG HCO3 (22-26) mmol/L VBG O2 Saturation % VBG Base Excess mmol/L Sodium (135-145) mmol/L Potassium (3.3-5.1) mmol/L Chloride (96-108) mmol/L Carbon Dioxide (22-29) mmol/L Anion Gap (12-20) BUN (9-16) mg/dL Creatinine (0.5-1.4) mg/dL Estim Creat Clear Calc Estimated GFR Random Glucose (60-115) mg/dL Lactic Acid (0.5-2.0) mmol/L Lactic Acid F/U @ 2Hr 3.3 H* (0.5-2.0) mmol/L Calcium (8.4-10.2) mg/dL Total Bilirubin (0.0-1.0) mg/dL Direct Bilirubin (0.0-0.5) mg/dL AST (5-31) U/L ALT (0-31) U/L Alkaline Phosphatase (39-117) U/L Troponin I High Sens (<3.5-17.0) ng/L B-Natriuretic Peptide (<100) pg/mL Total Protein (6.5-8.0) g/dL Albumin (3.5-5.0) g/dL COVID-19 ([facility]) (Negative) COVID-19 Clin Com Influenza Type A (PCR) (Negative) Influenza Type B (PCR) (Negative) RSV RNA Qual (PCR) (Negative) SARS-CoV-2 RNA (RT-PCR) (Negative) <Jeremy Brooks MD - Last Filed: 04/06/22 01:03> Discharge Plan Discharge Clinical Impression: Atrial fibrillation with rapid ventricular response, Congestive heart failure <Candy Nash MD - Last Filed: 04/05/22 15:06> Patient Disposition: Admitted As Inpatient <Candy Nash MD - Last Filed: 04/05/22 15:06>
--- NOTE | 2022-04-05 15:01 | ECG_ITS ---
Test Reason : CHEST PAIN Blood Pressure : / mmHG Vent. Rate : 124 BPM Atrial Rate : 000 BPM P-R Int : 000 ms QRS Dur : 080 ms QT Int : 300 ms P-R-T Axes : 000 070 -78 degrees QTc Int : 431 ms Atrial fibrillation with rapid ventricular response Nonspecific T wave abnormality Abnormal ECG When compared with ECG of 30-OCT-2020 08:37, Atrial fibrillation has replaced Sinus rhythm Vent. rate has increased BY 76 BPM Nonspecific T wave abnormality now evident in Inferior leads Nonspecific T wave abnormality now evident in Lateral leads Referred By: Candy Nash Electronically Signed By:COLE GARZA MD
[2022-04-05 16:01] LABS: Venous Blood Gas Refer to POC result
[2022-04-05 16:02] LABS: VBG Base Excess 0.4 mmol/L; VBG HCO3 23 mmol/L (22-26); VBG pCO2 34 mmHg; VBG pH 7.45 (7.32-7.43); VBG pO2 49 mmHg
[2022-04-05 16:08] LABS: Basophils Absolute Auto 0.1 X10*3/uL (0.0-0.2); Basophils Percent Auto 0.8 % (0-2); Eosinophils Percent Auto 0.3 % (0-4); Mean Corpuscular Hemoglobin 29.1 pg (27.0-33.0); PLT CLUMP 1; Red Cell Distribution Width 15.1 % (11.0-16.0); SCAN SMEAR FLAG 1
[2022-04-05 16:10] LABS: Hematocrit 41.6 % (37.0-47.0); Hemoglobin 13.4 g/dl (12.0-16.0); Imm Gran Abs Auto 0.01 X10*3/uL (0.00-0.03); Imm Gran Pct Auto 0.1 % (0.0-0.4); Lymphocytes Absolute Auto 2.3 X10*3/uL (1.2-4.9); Lymphocytes Percent Auto 30.2 % (20-40); MANUAL DIFF FLAG SCAN; Mean Corpuscular HGB Conc 32.2 g/dl (31.0-35.0); Mean Corpuscular Volume 90.4 fL (80.0-98.0); Mean Platelet Volume 12.1 fL (9.4-12.3); Monocytes Absolute Auto 0.5 X10*3/uL (0.1-1.2); Monocytes Percent Auto 6.4 % (2-11); Neutrophils Absolute Auto 4.8 x10*3/uL (2.0-8.3); Neutrophils Percent Auto 62.2 % (45-73)
[2022-04-05 16:18] LABS: COVID-19 Test Negative (Negative); IDNOW Serial# 16C4AD1C
[2022-04-05 16:21] LABS: Alanine Aminotransferase 24 U/L (0-31); Albumin Level 3.8 g/dL (3.5-5.0); Alkaline Phosphatase 139 U/L (39-117); Anion Gap 20 (12-20); Aspartate Amino Transferase 18 U/L (5-31); Bilirubin Direct 0.9 mg/dL (0.0-0.5); Bilirubin Total 1.5 mg/dL (0.0-1.0); Blood Urea Nitrogen 18 mg/dL (9-16); Calcium 9.4 mg/dL (8.4-10.2); Carbon Dioxide 19 mmol/L (22-29); Chloride 104 mmol/L (96-108); Creatinine Clr Calc Pharmacy 54.9; Estimated Glomerular Filt Rate 59; Glucose Random 134 mg/dL (60-115); Potassium 4.8 mmol/L (3.3-5.1); Sodium 138 mmol/L (135-145); Total Protein 6.1 g/dL (6.5-8.0)
[2022-04-05 16:22] LABS: INTERNATIONAL NORM RATIO 2.6 (0.9-1.1); Prothrombin Time 30.7 SEC (10.0-13.1)
[2022-04-05 16:23] LABS: Lactic Acid 2.8 mmol/L (0.5-2.0)
[2022-04-05 16:24] LABS: D Dimer High Sensitivity 1031 NG/ML
[2022-04-05 16:25] LABS: B Type Natriuretic Peptide 2823 pg/mL (<100)
[2022-04-05 16:46] LABS: Platelet Count 199 X10*3/uL (160-400); White Blood Count 7.7 X10*3/uL (4.8-10.8)
[2022-04-05 16:47] LABS: SLIDE REVIEW VERIFIED
[2022-04-05] MEDS: Furosemide 20 MG/2 ML VIAL IVPUSH (17:28)
[2022-04-05] MEDS: dilTIAZem HCL 50 MG/10 ML VIAL 10 MG IVPUSH (17:32)
[2022-04-05] MEDS: cefTRIAXone sodium 1 GM in 0.9 % Sodium Chloride 50 ML IV (17:36)
--- NOTE | 2022-04-05 17:40 | PC.NURSE ---
PT A&Ox3, c/o increase SOB for the past week. Worse when laying down or ambulating. PT reports productive cough, white sputum. Lung sounds rhonchi throughout. Sat 95% on RA. RR 20-24.
[2022-04-05 17:58] LABS: Reflex Lactate? Lactic Acid Added
[2022-04-05 18:32] LABS: ~Lactic Acid-LAB USE ONLY 3.3 mmol/L (0.5-2.0)
[2022-04-05 18:33] LABS: Influenza A PCR NEGATIVE (Negative); Influenza B PCR NEGATIVE (Negative); Resp Syncy Virus RNA Qual PCR NEGATIVE (Negative); SARS COV2 PCR INHOUSE NEGATIVE (Negative)
[2022-04-05 19:06] LABS: Cancel Lactic Acid Canceled
--- NOTE | 2022-04-05 19:09 | PHA.MEDREC ---
Pharmacy Consult ? Medication Reconciliation Pharmacy has completed the medication reconciliation. Patient confirmed medications. Reported on a medication for anxiety that is a green tablet. When listing previous medication she has been on, she said yes to risperidone but that has no claim history to support that she is still taking it. Patient is on Fluoxetine 20 mg which is a green capsule. Patient also reported she is not on atorvastatin. Naomi Ren, AgD
[2022-04-05] MEDS: dilTIAZem HCL 125 MG in 0.9 % Sodium Chloride 100 ML 10 MG IVCONT (19:37)
[2022-04-05] MEDS: Furosemide 40 MG/4 ML VIAL IVPUSH (21:11)
[2022-04-05 21:35] LABS: Procalcitonin 0.14 ng/mL
[2022-04-05 21:45] LABS: Troponin-I High Sensitivity 95.5 ng/L (<3.5-17.0)
--- NOTE | 2022-04-05 21:51 | P.HPHOSP_ITS ---
History of Present Illness Date of Service: 04/05/22 Chief Complaint: Shortness of breath This is a 51-year-old female with past medical history of CVA, NSTEMI, paroxysmal AFib, PTSD, HLD, depression anxiety, alcoholism and warthin's tumor presents the hospital with complaints of shortness of breath. Patient reports that her symptoms started 7 days ago, associated with cough, no sputum production. She has significant abdominal distension, no lower extremity edema. She reports orthopnea and PND. She has also had significant amount of diarrhea for the past 7 days. She has had 3-4 episodes of diarrhea daily. She states that have abdomen is pretty hard, and slightly tender in the periumbilical region. She denies having any fevers or chills. She is stating that she is very anxious, wants something to calm her down and put her to sleep. She has no chest pain, no palpitations, denies any urinary symptoms. On arrival to the ED patient found to have a temperature of 96.4 degrees, heart rate of 131, respiratory rate of 22, blood pressure 96/78 Patient was in AFib with RVR Labs are significant for WBC count of 7.7, hemoglobin of 13.4, hematocrit 41.6, INR of 2.6, venous blood pH of 7.45, potassium 4.8, lactic acid of 2.8, total bili of 1.5, troponin of 91, BNP of 2823, c.diff negative procalcitonin 0.14 Chest xray shows right lung interstitial infiltrate which may reflect edema or pneumonia Abdominal pelvic CT shows small to moderate volume ascites, small to moderate size right and small left pleural effusions, no evidence of bowel obstruction or other acute intra-abdominal process. Diverticulosis with no diverticulitis Review of Systems Review of Systems: Yes all other systems are reviewed and are negative [facility] Medical History Alcoholism Cocaine dependence CVA (cerebral vascular accident) Depression Disorder of bone and articular cartilage Hx of ovarian cancer Insomnia Mixed hyperlipidemia Nasal congestion Osteopenia PAF (paroxysmal atrial fibrillation) PTSD (post-traumatic stress disorder) Tobacco abuse Family History Maternal Grandmother Breast cancer Mother DVT (deep venous thrombosis) Diabetes Surgical History Hx of hysterectomy Social History Household Members: Family Housing: House Alcohol intake: never Patient Tobacco Use Status: Current everyday Tobacco user Tobacco use type: Cigarette Cigarette Packs Per Day: 0.5 Smoked in Last 30 Days: No e-Cigarette/Vaping Use: Currently Using Patient Interested in Nicotine Replacement: No Patient Given Instructions on How to Stop Smoking: Yes Date Education Initiated: 04/06/22 Second Hand Smoke Exposure: No Use of substances other than those prescribed or required for medical reasons: No Substance Use Type: Marijuana Substance Use Frequency: Occasionally Last Used Substance: Days (ago) Currently Displaying Signs/Symptoms of Drug Intoxication Withdrawal: No Any prior treatment program specific to substance use: No Have you been hit, kicked, punched, or otherwise hurt by someone within the past year? If so, by whom?: No Do you feel safe in your current relationship?: Yes Is there a partner from a previous relationship who is making you feel unsafe now?: No Are you made to feel afraid or neglected: No Advance Directives: No Advance Directives Information Provided: Yes Do you have thoughts of harming others: None Do you have a plan to hurt others: No Plan Recently lost weight without trying: No How much weight loss: Not applicable Eating poorly because of decreased appetite: No Nutrition screen score: 0 Nutrition Risks: No Nutritional Risk Patient : No : No Poor oral hygiene: No service: No Current occupational status: unemployed Meds Allergies Allergy/AdvReac Type Severity Reaction Status Date / Time codeine Allergy Nausea and Verified 12/11/20 12:04 Vomiting Active Medications: Current Medications Acetaminophen (Acetaminophen 325 Mg Tablet) 650 mg PO Q6H PRN PRN Reason: Pain, Mild (Pain Scale 1-3) Docusate Sodium (Docusate Sodium 100 Mg Capsule) 100 mg PO DAILY PRN PRN Reason: Constipation Furosemide (Furosemide 40 Mg/4 Ml Vial) 40 mg IVPUSH BID@0900,1800 [facility]; Protocol Last Admin: 04/05/22 21:11 Dose: 40 mg Diltiazem HCl 125 mg/ Sodium (Chloride) 125 mls @ 0 mls/hr IVCONT .Q0M DIANA; Protocol Last Admin: 04/05/22 19:37 Dose: 10 mg/hr, 10 mls/hr Ondansetron HCl (Ondansetron Hcl 4 Mg/2 Ml Vial) 4 mg IVPUSH Q8H PRN PRN Reason: Nausea and Vomiting Pharmacy Consult (Consult Rx Perform Med Rec) 1 each MISCELLANE ONCE PRN PRN Reason: Consult order Sodium Chloride (0.9 % Sodium Chloride Flush 3 Ml Syringe) [address] [facility] Home Medications Medication Instructions Recorded Confirmed Last Taken Type diltiazem HCl 30 mg tablet 1 tab PO DAILY 10/29/20 04/05/22 04/05/22 History fluoxetine 20 mg capsule 1 cap PO DAILY 10/29/20 04/05/22 04/05/22 History folic acid 1 mg tablet 1 tab PO DAILY 10/29/20 04/05/22 04/05/22 History lisinopril 5 mg tablet 1 tab PO DAILY 10/29/20 04/05/22 04/05/22 History apixaban 5 mg tablet (Eliquis) 1 tab PO BID 04/05/22 04/05/22 04/05/22 History cholecalciferol (vitamin D3) 25 25 mcg PO DAILY 04/05/22 04/05/22 04/05/22 History mcg (1,000 unit) tablet Physical Exam Vital Signs and Narrative: Vital Signs: Last Vital Signs Temp 97.4 F 04/05/22 20:32 Pulse 116 H 04/05/22 21:13 Resp 26 H 04/05/22 21:13 BP 135/77 04/05/22 21:13 Pulse Ox 96 04/05/22 21:13 O2 Del Method 04/05/22 21:13 BMI result Body Mass Index 22.6 Const: General: cooperative and no acute distress Orie ntation/consciousness: patient oriented x3 Eyes: General: appearance normal, both eyes and all related structures Pupils: Equal, round and reactive pupils present Resp: Other: Crackles bilaterally Effort & Inspection: normal respiratory effort Cardio: Rate: regular rate Rhythm: regular rhythm GI: Other: Abdomen is 1+ distended, slightly tender diffusely, no rebound or guarding Palpation (GI): Soft to palpation Auscultation: normal bowel sounds Skin: General skin exam: no rashes or lesions noted Neuro: General: patient oriented x3 Cranial nerves: Yes Equal, round and reactive pupils present Cognition (Neuro): normal cognition Extrem: Other: No lower extremity edema General: Yes normal to inspection and Yes no pedal e sallie Results Labs CBC and Chem 7: 04/05/22 15:50 04/05/22 15:50 Labs: Laboratory Results - last 24 hr 04/05/22 04/05/22 04/05/22 15:50 15:50 15:50 MCV 90.4 MCH 29.1 MCHC 32.2 RDW 15.1 Plt Count 199 MPV 12.1 Immature Gran % (Auto) 0.1 Neut % (Auto) 62.2 Lymph % (Auto) 30.2 [place] % (Auto) 6.4 Eos % (Auto) 0.3 Baso % (Auto) 0.8 Lymph # (Auto) 2.3 [place] # (Auto) 0.5 Eos # (Auto) 0.0 Baso # (Auto) 0.1 Abs Immat Gran (auto) 0.01 Absolute Neuts (auto) 4.8 Absolute Nucleated RBC 0.000 Nucleated RBC % (auto) 0.0 Smear Tech's Comments VERIFIED PT 30.7 H INR 2.6 H D-Dimer High Sensitivty 1031 VBG pH VBG pCO2 VBG pO2 VBG HCO3 VBG O2 Saturation VBG Base Excess Anion Gap 20 Estim Creat Clear Calc 54.9 Estimated GFR 59 Random Glucose 134 H Lactic Acid Lactic Acid F/U @ 2Hr Calcium 9.4 Total Bilirubin 1.5 H Direct Bilirubin 0.9 H AST 18 D ALT 24 Alkaline Phosphatase 139 H Troponin I High Sens B-Natriuretic Peptide Total Protein 6.1 L Albumin 3.8 Procalcitonin COVID-19 ([facility]) COVID-19 Clin Com Influenza Type A (PCR) Influenza Type B (PCR) RSV RNA Qual (PCR) SARS-CoV-2 RNA (RT-PCR) 04/05/22 04/05/22 04/05/22 15:50 15:50 15:50 MCV MCH MCHC RDW Plt Count MPV Immature Gran % (Auto) Neut % (Auto) Lymph % (Auto) [place] % (Auto) Eos % (Auto) Baso % (Auto) Lymph # (Auto) [place] # (Auto) Eos # (Auto) Baso # (Auto) Abs Immat Gran (auto) Absolute Neuts (auto) Absolute Nucleated RBC Nucleated RBC % (auto) Smear Tech's Comments PT INR D-Dimer High Sensitivty VBG pH VBG pCO2 VBG pO2 VBG HCO3 VBG O2 Saturation VBG Base Excess Anion Gap Estim Creat Clear Calc Estimated GFR Random Glucose Lactic Acid Lactic Acid F/U @ 2Hr Calcium Total Bilirubin Direct Bilirubin AST ALT Alkaline Phosphatase Troponin I High Sens 91.0 H* B-Natriuretic Peptide 2823 H Total Protein Albumin Procalcitonin COVID-19 ([facility]) Negative COVID-19 Clin Com See Note Influenza Type A (PCR) Influenza Type B (PCR) RSV RNA Qual (PCR) SARS-CoV-2 RNA (RT-PCR) 04/05/22 04/05/22 04/05/22 15:50 15:57 17:37 MCV MCH MCHC RDW Plt Count MPV Immature Gran % (Auto) Neut % (Auto) Lymph % (Auto) [place] % (Auto) Eos % (Auto) Baso % (Auto) Lymph # (Auto) [place] # (Auto) Eos # (Auto) Baso # (Auto) Abs Immat Gran (auto) Absolute Neuts (auto) Absolute Nucleated RBC Nucleated RBC % (auto) Smear Tech's Comments PT INR D-Dimer High Sensitivty VBG pH 7.45 H VBG pCO2 34 VBG pO2 49 VBG HCO3 23 VBG O2 Saturation 73.0 VBG Base Excess 0.4 Anion Gap Estim Creat Clear Calc Estimated GFR Random Glucose Lactic Acid 2.8 H* Lactic Acid F/U @ 2Hr Calcium Total Bilirubin Direct Bilirubin AST ALT Alkaline Phosphatase Troponin I High Sens B-Natriuretic Peptide Total Protein Albumin Procalcitonin COVID-19 ([facility]) COVID-19 Clin Com Influenza Type A (PCR) NEGATIVE Influenza Type B (PCR) NEGATIVE RSV RNA Qual (PCR) NEGATIVE SARS-CoV-2 RNA (RT-PCR) NEGATIVE 04/05/22 04/05/22 04/05/22 18:09 20:46 20:46 MCV MCH MCHC RDW Plt Count MPV Immature Gran % (Auto) Neut % (Auto) Lymph % (Auto) [place] % (Auto) Eos % (Auto) Baso % (Auto) Lymph # (Auto) [place] # (Auto) Eos # (Auto) Baso # (Auto) Abs Immat Gran (auto) Absolute Neuts (auto) Absolute Nucleated RBC Nucleated RBC % (auto) Smear Tech's Comments PT INR D-Dimer High Sensitivty VBG pH VBG pCO2 VBG pO2 VBG HCO3 VBG O2 Saturation VBG Base Excess Anion Gap Estim Creat Clear Calc Estimated GFR Random Glucose Lactic Acid Lactic Acid F/U @ 2Hr 3.3 H* Calcium Total Bilirubin Direct Bilirubin AST ALT Alkaline Phosphatase Troponin I High Sens 95.5 H* B-Natriuretic Peptide Total Protein Albumin Procalcitonin 0.14 COVID-19 ([facility]) COVID-19 Clin Com Influenza Type A (PCR) Influenza Type B (PCR) RSV RNA Qual (PCR) SARS-CoV-2 RNA (RT-PCR) Imaging Radiologist's Impressions: Impressions Chest X-Ray 04/05/22 16:22 IMPRESSION: Right lung interstitial infiltrate may reflect edema or pneumonia. Right subpulmonic effusion. Abdomen/Pelvis CT 04/05/22 16:31 IMPRESSION: 1. Small to moderate volume ascites. 2. Small to moderate-sized right and small left pleural effusions. 3. No evidence of bowel obstruction or other acute intra-abdominal process. 4. Sigmoid diverticulosis. No evidence of acute diverticulitis. Assessment and Plan (1) Atrial fibrillation with rapid ventricular response: Status: Acute (2) Congestive heart failure: Status: Acute (3) Coagulopathy: Status: Acute (4) Ascites: Status: Acute (5) Alcohol abuse: Status: Acute (6) Anxiety: Status: Acute (7) Lactic acidosis: Status: Acute Plan 51-year-old female with past medical history of alcohol abuse, AFib, presents to the hospital with complaints of shortness of breath found to have AFib as well as CHF exacerbation # AFib with RVR - heart rate in the 130s to 140s on arrival - likely secondary to acute CHF exacerbation - no evidence of acute infection - denies any chest pain, troponin no delta - patient started on diltiazem drip improvement in her heart rate - resume her home diltiazem, and titrate diltiazem drip as tolerated - heart rate is not secondary to sepsis # acute CHF exacerbation - last echo done from 2020 shows ejection fraction of 55-60% - there is evidence of volume overload on chest x-ray, patient also has abdominal ascites, orthopnea and PND - elevated BNP - will treat with IV Lasix, strict I&O, daily weight, as well as low-sodium diet - will repeat echocardiogram - cardiology consulted # coagulopathy - patient on Eliquis for paroxysmal AFib - INR of 2.4 - no acute bleed - contionue eliquis - monitor # history of alcohol abuse - reports only drinks on weekends - denies history of withdrawals - abdominal CT shows no normal liver lesions or contour - monitor with CIWA # abd acites - Possibly in the setting of CHF - no evidence of liver cirhosis on abd ct - Will obtain paracentesis - no concern for SBP and pt with no hx of cirhosis, no fever, no leukocytosis # Anxiety/insomnia - received one dose of ambien - improved # lactic acidosis - likely 2/2 respiratory distress and A fib w RVR - not secondary to acute infection/sepsis - will trend # htn - continue linisopril DVT prophylaxis: Eliquis Given patient's need for IV Lasix patient will require a minimum 2 night inpatient hospital stay Quality Stroke Does the patient have a stroke diagnosis?: No VTE Prior VTE?: No VTE Risk Level:: Medical - moderate - high VTE Device Contraindication: Treatment Not Indicated VTE Drug Contraindication: N/A - Med Ordered
[2022-04-05] MEDS: Zolpidem Tartrate 5 MG TABLET PO (22:48)
[2022-04-06] VITALS (9 sets, daily range): BP systolic 90–136; BP diastolic 52–94; PULSE 64–109; RESP 17–27; TEMP 36.4–37.1; O2SAT 92–98; BMI 22.6
--- NOTE | 2022-04-06 03:16 | PC.NURSE ---
Pt made aware that a stool sample is needed. Hat placed on toilet to obtain sample. Pt instructed to try to go and get stool in the hat to obtain the sample. Pt given call dee to ring when complete
--- NOTE | 2022-04-06 03:36 | PC.NURSE ---
pt reported to this RN that she wanted something in addition to previous ambien to help her sleep. Dr. Bro ordered 50mg trazodone. This RN attempted to medicate pt according to TOMAS, pt stated trazadone does not work for her but she feels okay and they she could get some rest.
[2022-04-06] MEDS: traZODone HCL 50 MG TABLET PO ×2 (04:26→22:45)
[2022-04-06 04:53] LABS: CDiff Gene PCR NEGATIVE (Negative)
[2022-04-06] MEDS: dilTIAZem HCL 125 MG in 0.9 % Sodium Chloride 100 ML 10 MG IVCONT ×2 (06:47→22:25)
--- NOTE | 2022-04-06 07:00 | CA_ITS ---
Transthoracic Echocardiogram Patient (Last, First, Middle): Cari Sánchez M Gender: Female Date of : 1970 Age: 51 Procedure Date: 04/06/2022 Procedure Type: Transthoracic Echocardiogram Location: [facility] [place] Height: 160.02 cm Weight: 58.06 kg BSA: 1.60 m2 Heart Rate: bpm BP: 117 / 94 mmHg Immigration Coordinator: ANDREW Ingram MD: Dai Bro MD Director Religious Education: Josue Milton MD Symptoms: chf Study Quality: Good ECG Rhythm: Atrial Fibrillation Conclusions: - 1. Severely reduced LV systolic function with LVEF of 25-30% 2. Moderately dilated right ventricle with severely reduced RV systolic function 3. Moderate biatrial enlargement 4. Wecd-dc-icstyaty mitral regurgitation 5. Moderate tricuspid regurgitation with significantly elevated right atrial pressures and normal RV systolic pressure 6. No gross pericardial effusion Findings Procedure Information Contrast agent, definity, is being given per protocol without apparent complications. Left Ventricle Normal left ventricular cavity size. There is normal left ventricular wall thickness. The left ventricular systolic function is severely decreased. The visually estimated ejection fraction is between 25-30%. There is severe global hypokinesis. Diastolic function is indeterminate on the basis of available data. Right Ventricle Moderately increased right ventricular cavity size. There is severely decreased right ventricular systolic function. Atria The left atrium is moderately dilated. Interatrial shunt cannot be excluded. The right atrium is moderately dilated. Aortic Valve The aortic valve structure and function is likely normal. There is no aortic valve stenosis. There is no aortic valve regurgitation. Mitral Valve There is mild anterior and posterior mitral leaflet thickening. There is mild to moderate mitral valve regurgitation. There is no mitral valve stenosis. Pulmonic Valve The pulmonic valve is likely normal. Tricuspid Valve Normal tricuspid valve structure. There is moderate tricuspid valve regurgitation. The right ventricular systolic pressure is normal. Significantly elevated right atrial pressure. There is no evidence of pulmonary hypertension. Great Vessels All visible segments of the aorta are normal in size. Venous The inferior vena cava is moderately dilated and does not collapse with inspiration. Pericardium/Pleural There is no evidence of pericardial effusion. Prior Study Comparison Significant changes compared to prior study. Both RV and LV systolic functions are significantly reduced. Mild to moderate mitral and moderate tricuspid regurgitation noted Measurements 2D Linear Measurements IVSd: 0.74 0.6-0.9/0.6-1.0 cm LVIDd: 5.36 3.9-5.3/4.2-5.9 cm LVIDd Index: 3.35 2.4-3.2/2.2-3.1 cm/m2 LVIDs: 4.83 2.0-3.6 cm LVPWd: 1.09 0.7-1.1 cm Ao Root: 2.90 2.1-3.5 cm LA Diam: 4.50 2.7-3.8/3.0-4.0 cm LAIDs Index: 2.81 1.5-2.3 cm/m2 LV Mass: 225.77 67-162/88-224 g LV Mass Index: 141.10 43-95/49-115 g/m2 LVOT Diam: 2.00 3.0+(-)1.3 cm 2D Systolic Function EF 4C: 23.00 >55% EF 2C: 30.30 >55% EF BiP: 27.60 >55% Mitral Valve E'Lateral: 9.03 E'Medial: 7.29 MR Vol - PW Dopp: 14.55 MR VTI: 0.97 MR ERO: 15.00 MR Alias Terrell: 0.39 MR RAD: 0.50 Aortic Valve AoV Pk Terrell: 0.94 AoV Mn Terrell: 0.72 AoV VTI: 0.14 AoV Pk Grad: 4.00 Aov Mn Grad: 2.00 AMOL Cont.VTI: 1.92 LVOT LVOT Pk Terrell: 0.71 LVOT Mn Terrell: 0.48 LVOT VTI: 0.08 LVOT Pk Grad: 2.00 LVOT Mn Grad: 1.00 LVOT Diam: 2.00 LVOT Area: 3.14 Diastolic Function E'Medial: 7.29 E' Laterial: 9.03 Right Ventricle TAPSE (mm): 8.90 TVS' Terrell: 6.50 Tricuspid Valve TR Pk Terrell: 2.39 TR Pk Grad: 23.00 RA Press: 15.00 RVSP: 38.00 Great Vessels Aorta Ao Root-2D: 2.90 2.0-3.7 cm Ao Asc: 3.30 2.1-3.4 cm Pulmonary Valve PV Pk Terrell: 0.68 Peak PV Grad: 2.00 Updated in Other Vendor System with Status of Final Josue Milton MD electronically signed on 04/06/2022 4:22:26 PM with status of Final
[2022-04-06] MEDS: Furosemide 40 MG/4 ML VIAL IVPUSH (08:50)
[2022-04-06] MEDS: lisinopriL 5 MG TABLET PO (08:51)
[2022-04-06] MEDS: FLUoxetine HCl 20 MG CAPSULE PO (08:51)
[2022-04-06] MEDS: dilTIAZem HCL 30 MG TABLET PO (08:52)
[2022-04-06] MEDS: Folic Acid 1 MG TABLET PO (08:52)
[2022-04-06] MEDS: 0.9 % Sodium Chloride Flush 3 ML SYRINGE IVFLUSH ×3 (08:52→22:26)
--- NOTE | 2022-04-06 09:05 | MHC.CM.PN ---
Addendum entered by Nusrat Pompa 04/06/22 09:56: A HCP has been documented and placed on the chart. Patient has been vaccinated x2 Moderna. Original Note: Female 51 DX CHF Afib ETOH She lives with her Mother. She is independent all functional mobility. She has been vaccinated for covid. DP home self care family transport home.
[2022-04-06 09:36] LABS: MANUAL DIFF FLAG NO
[2022-04-06 09:45] LABS: Basophils Absolute Auto 0.1 X10*3/uL (0.0-0.2); Basophils Percent Auto 0.8 % (0-2); Eosinophils Absolute Auto 0.1 X10*3/uL (0.0-0.4); Eosinophils Percent Auto 0.6 % (0-4); Hematocrit 38.3 % (37.0-47.0); Hemoglobin 12.6 g/dl (12.0-16.0); Imm Gran Abs Auto 0.03 X10*3/uL (0.00-0.03); Imm Gran Pct Auto 0.3 % (0.0-0.4); Lymphocytes Absolute Auto 3.1 X10*3/uL (1.2-4.9); Lymphocytes Percent Auto 33.4 % (20-40); Mean Corpuscular HGB Conc 32.9 g/dl (31.0-35.0); Mean Corpuscular Hemoglobin 29.4 pg (27.0-33.0); Mean Corpuscular Volume 89.5 fL (80.0-98.0); Mean Platelet Volume 11.7 fL (9.4-12.3); Monocytes Absolute Auto 0.7 X10*3/uL (0.1-1.2); Monocytes Percent Auto 7.7 % (2-11); Neutrophils Absolute Auto 5.3 x10*3/uL (2.0-8.3); Neutrophils Percent Auto 57.2 % (45-73); Platelet Count 263 X10*3/uL (160-400); Red Blood Count 4.28 X10*6/uL (4.20-5.50); Red Cell Distribution Width 14.9 % (11.0-16.0); White Blood Count 9.3 X10*3/uL (4.8-10.8)
[2022-04-06 09:48] LABS: Lactic Acid 1.3 mmol/L (0.5-2.0)
--- NOTE | 2022-04-06 10:45 | P.CONCA_ITS ---
History of Present Illness History of Present Illness Date of Service: 04/06/22 Requesting physician: Wojciech Max Consult reason: atrial fibrillation and congestive heart failure Chief complaint: CHF EXACERBATION Narrative: I was consulted to see Cari in cardiology consultation today for progressive shortness of breath, abdominal distension and findings consistent with heart failure. Patient has prior history of stroke about a year and half ago at which time she has diagnose atrial fibrillation in started on oral anticoagulation t herapy with Eliquis and Cardizem therapy for rate control. She apparently has no symptoms related to AFib. She has been taking medications. Her echocardiogram at that time at shown LVEF of 55-60%. She came to the hospital with progressively increasing shortness of breath over the last week. She says she has been getting more short of breath and barely able to do anything at home with shortness of breath along with orthopnea and PND. She has to sleep upright without having much improvement. She also complains of abdominal distension. Denies any leg swelling. She has not been measuring her weight. Denies any fever or chills. No cough productive of phlegm. She came to the hospital was noted to have significantly elevated BNP with abdominal distention with ascites and bilateral pleural effusion although chest x-ray finding with no significant for pulmonary edema. She was noted to be in atrial fibrillation rapid ventricular response was started on IV Cardizem drip with better rate control. Echocardiogram being done at bedside shows slightly reduced EF in the 30-35% range. Will review the full echocardiogram. She continues to be short of breath. She has received IV Lasix but intake and output chart are not accurately charted. She denies any palpitation or knowledge of being in atrial fibrillation. Denies any bleeding issues. Review of Systems Constitutional: Constitutional: Reports no additional constitutional complaints Eyes: Eyes: Reports no additional eye complaints Cardiovascular: Cardiovascular: Reports Abdominal Distension, Denies chest pain, Denies syncope, Denies leg edema, Denies lightheadedness, Denies palpitations, Reports dyspnea on exertion, Reports orthopnea and Reports paroxysmal nocturnal dyspnea Respiratory: Respiratory: Reports no additional respiratory complaints and Reports dyspnea on exertion Gastrointestinal: Gastrointestinal: Reports abdominal pain Genitourinary: Genitourinary: Reports no additional female genitourinary complaints Musculoskeletal: Musculoskeletal: Reports no additional musculoskeletal complaints Integumentary/Breasts: Skin/Breast: Reports system reviewed and no additional complaints, except as docu Neurologic: Reports system reviewed and no additional complaints, except as documented and Denies syncope Psychiatric: Psychiatric: Reports no additional psychiatric complaints Endocrine: Endocrine: Reports no additional endocrine complaints and Denies palpitations Hematologic/Lymphatic: Hematologic/Lymphatic: Reports no additional hem atologic/lymphatic complaints PMFSH Past Medical History Medical History Alcoholism Cocaine dependence CVA (cerebral vascular accident) Depression Disorder of bone and articular cartilage Hx of ovarian cancer Insomnia Mixed hyperlipidemia Nasal congestion Osteopenia PAF (paroxysmal atrial fibrillation) PTSD (post-traumatic stress disorder) Tobacco abuse Family History Family History Maternal Grandmother Breast cancer Mother DVT (deep venous thrombosis) Diabetes Surgical History Surgical History Hx of hysterectomy Social History Social History Household Members: Family Housing: House Alcohol intake: never Patient Tobacco Use Status: Current everyday Tobacco user Tobacco use type: Cigarette Cigarette Packs Per Day: 0.5 Smoked in Last 30 Days: No e-Cigarette/Vaping Use: Currently Using Patient Interested in Nicotine Replacement: No Patient Given Instructions on How to Stop Smoking: Yes Date Education Initiated: 04/06/22 Second Hand Smoke Exposure: No Use of substances other than those prescribed or required for medical reasons: No Substance Use Type: Marijuana Substance Use Frequency: Occasionally Last Used Substance: Days (ago) Currently Displaying Signs/Symptoms of Drug Intoxication Withdrawal: No Any prior treatment program specific to substance use: No Have you been hit, kicked, punched, or otherwise hurt by someone within the past year? If so, by whom?: No Do you feel safe in your current relationship?: Yes Is there a partner from a previous relationship who is making you feel unsafe now?: No Are you made to feel afraid or neglected: No Advance Directives: No Advance Directives Information Provided: Yes Do you have thoughts of harming others: None Do you have a plan to hurt others: No Plan Recently lost weight without trying: No How much weight loss: Not applicable Eating poorly because of decreased appetite: No Nutrition screen score: 0 Nutrition Risks: No Nutritional Risk Patient : No : No Poor oral hygiene: No service: No Current occupational status: unemployed Meds Allergies Allergy/AdvReac Type Severity Reaction Status Date / Time codeine Allergy Nausea and Verified 12/11/20 12:04 Vomiting Active Medications: Current Medications Acetaminophen (Acetaminophen 325 Mg Tablet) 650 mg PO Q6H PRN PRN Reason: Pain, Mild (Pain Scale 1-3) Apixaban (Apixaban 5 Mg Tablet) 5 mg PO BID [facility] Last Admin: 04/06/22 08:52 Dose: Not Given Diltiazem HCl (Diltiazem Hcl 30 Mg Tablet) 30 mg PO DAILY [facility]; Protocol Last Admin: 04/06/22 08:52 Dose: 30 mg Docusate Sodium (Docusate Sodium 100 Mg Capsule) 100 mg PO DAILY PRN PRN Reason: Constipation Fluoxetine HCl (Fluoxetine Hcl 20 Mg Capsule) 20 mg PO DAILY [facility] Last Admin: 04/06/22 08:51 Dose: 20 mg Folic Acid (Folic Acid 1 Mg Tablet) 1 mg PO DAILY [facility] Last Admin: 04/06/22 08:52 Dose: 1 mg Furosemide (Furosemide 40 Mg/4 Ml Vial) 40 mg IVPUSH BID@0900,1800 [facility]; Protocol Last Admin: 04/06/22 08:50 Dose: 40 mg Diltiazem HCl 125 mg/ Sodium (Chloride) 125 mls @ 0 mls/hr IVCONT .Q0M [facility]; Protocol Last Admin: 04/06/22 06:47 Dose: 10 mg/hr, 10 mls/hr Lisinopril (Lisinopril 5 Mg Tablet) 5 mg PO DAILY [facility]; Protocol Last Admin: 04/06/22 08:51 Dose: 5 mg Ondansetron HCl (Ondansetron Hcl 4 Mg/2 Ml Vial) 4 mg IVPUSH Q8H PRN PRN Reason: Nausea and Vomiting Pharmacy Consult (Consult Rx Perform Med Rec) 1 each MISCELLANE ONCE PRN PRN Reason: Consult order Sodium Chloride (0.9 % Sodium Chloride Flush 3 Ml Syringe) 3 ml IVFLUSH QSHIFT [facility] Last Admin: 04/06/22 08:52 Dose: 3 ml Thiamine HCl (Thiamine Hcl 100 Mg Tablet) 100 mg PO DAILY [facility] Home Medications Medication Instructions Recorded Confirmed Last Taken Type diltiazem HCl 30 mg tablet 1 tab PO DAILY 10/29/20 04/05/22 04/05/22 History fluoxetine 20 mg capsule 1 cap PO DAILY 10/29/20 04/05/22 04/05/22 History folic acid 1 mg tablet 1 tab PO DAILY 10/29/20 04/05/22 04/05/22 History lisinopril 5 mg tablet 1 tab PO DAILY 10/29/20 04/05/22 04/05/22 History apixaban 5 mg tablet (Eliquis) 1 tab PO BID 04/05/22 04/05/22 04/05/22 History cholecalciferol (vitamin D3) 25 25 mcg PO DAILY 04/05/22 04/05/22 04/05/22 History mcg (1,000 unit) tablet Physical Exam Vital Signs: Vital Signs: Last Vital Signs Temp 97.6 F 04/06/22 07:10 Pulse 86 04/06/22 07:10 Resp 17 04/06/22 07:10 BP 122/76 04/06/22 07:10 Pulse Ox 95 04/06/22 07:10 O2 Del Method 04/06/22 07:10 BMI result Body Mass Index 22.6 Const: General: cooperative, comfortable and in distress mild and respiratory Nutritional Appearance: thin Orientation/consciousness: patient oriented x3 HEENT: Head: Yes normocephalic and Yes atraumatic Neck: Neck: Yes trachea midline, Yes supple and Yes JVD Resp: Effort & Inspection: normal respiratory effort Auscultation: crackles Cardio: Jugular venous distension: JVD Rate: tachycardic Rhythm: abnormal rhythm irregularly irregular Heart sounds: S1 normal heart sound present, S2 normal heart sound present, no click, no gallops and no murmurs GI: Inspection: Yes distended Auscultation: normal bowel sounds Skin: General skin exam: no rashes or lesions noted and ecchymosis Neuro: General: patient oriented x3 and no focal motor deficits Extrem: General: Yes no clubbing, cyanosis or edema Objective Labs and Meds Result diagrams: 04/06/22 09:26 04/05/22 15:50 Lab results: Laboratory Results - last 24 hr 04/05/22 04/05/22 04/05/22 15:50 15:50 15:50 WBC 7.7 RBC 4.60 Hgb 13.4 Hct 41.6 MCV 90.4 MCH 29.1 MCHC 32.2 RDW 15.1 Plt Count 199 MPV 12.1 Immature Gran % (Auto) 0.1 Neut % (Auto) 62.2 Lymph % (Auto) 30.2 Finney % (Auto) 6.4 Eos % (Auto) 0.3 Baso % (Auto) 0.8 Lymph # (Auto) 2.3 Finney # (Auto) 0.5 Eos # (Auto) 0.0 Baso # (Auto) 0.1 Abs Immat Gran (auto) 0.01 Absolute Neuts (auto) 4.8 Absolute Nucleated RBC 0.000 Nucleated RBC % (auto) 0.0 Smear Tech's Comments VERIFIED PT 30.7 H INR 2.6 H D-Dimer High Sensitivty 1031 VBG pH VBG pCO2 VBG pO2 VBG HCO3 VBG O2 Saturation VBG Base Excess Sodium 138 Potassium 4.8 Chloride 104 Carbon Dioxide 19 L Anion Gap 20 BUN 18 H Creatinine 0.98 Estim Creat Clear Calc 54.9 Estimated GFR 59 Random Glucose 134 H Lactic Acid Lactic Acid F/U @ 2Hr Calcium 9.4 Total Bilirubin 1.5 H Direct Bilirubin 0.9 H AST 18 D ALT 24 Alkaline Phosphatase 139 H Troponin I High Sens B-Natriuretic Peptide Total Protein 6.1 L Albumin 3.8 Procalcitonin C. difficile Tox B Gene COVID-19 ([facility]) COVID-19 Clin Com Influenza Type A (PCR) Influenza Type B (PCR) RSV RNA Qual (PCR) SARS-CoV-2 RNA (RT-PCR) 04/05/22 04/05/22 04/05/22 15:50 15:50 15:50 WBC RBC Hgb Hct MCV MCH MCHC RDW Plt Count MPV Immature Gran % (Auto) Neut % (Auto) Lymph % (Auto) Finney % (Auto) Eos % (Auto) Baso % (Auto) Lymph # (Auto) Finney # (Auto) Eos # (Auto) Baso # (Auto) Abs Immat Gran (auto) Absolute Neuts (auto) Absolute Nucleated RBC Nucleated RBC % (auto) Smear Tech's Comments PT INR D-Dimer High Sensitivty VBG pH VBG pCO2 VBG pO2 VBG HCO3 VBG O2 Saturation VBG Base Excess Sodium Potassium Chloride Carbon Dioxide Anion Gap BUN Creatinine Estim Creat Clear Calc Estimated GFR Random Glucose Lactic Acid Lactic Acid F/U @ 2Hr Calcium Total Bilirubin Direct Bilirubin AST ALT Alkaline Phosphatase Troponin I High Sens 91.0 H* B-Natriuretic Peptide 2823 H Total Protein Albumin Procalcitonin C. difficile Tox B Gene COVID-19 ([facility]) Negative COVID-19 Clin Com See Note Influenza Type A (PCR) Influenza Type B (PCR) RSV RNA Qual (PCR) SARS-CoV-2 RNA (RT-PCR) 04/05/22 04/05/22 04/05/22 15:50 15:57 17:37 WBC RBC Hgb Hct MCV MCH MCHC RDW Plt Count MPV Immature Gran % (Auto) Neut % (Auto) Lymph % (Auto) Finney % (Auto) Eos % (Auto) Baso % (Auto) Lymph # (Auto) Finney # (Auto) Eos # (Auto) Baso # (Auto) Abs Immat Gran (auto) Absolute Neuts (auto) Absolute Nucleated RBC Nucleated RBC % (auto) Smear Tech's Comments PT INR D-Dimer High Sensitivty VBG pH 7.45 H VBG pCO2 34 VBG pO2 49 VBG HCO3 23 VBG O2 Saturation 73.0 VBG Base Excess 0.4 Sodium Potassium Chloride Carbon Dioxide Anion Gap BUN Creatinine Estim Creat Clear Calc Estimated GFR Random Glucose Lactic Acid 2.8 H* Lactic Acid F/U @ 2Hr Calcium Total Bilirubin Direct Bilirubin AST ALT Alkaline Phosphatase Troponin I High Sens B-Natriuretic Peptide Total Protein Albumin Procalcitonin C. difficile Tox B Gene COVID-19 ([facility]) COVID-19 Clin Com Influenza Type A (PCR) NEGATIVE Influenza Type B (PCR) NEGATIVE RSV RNA Qual (PCR) NEGATIVE SARS-CoV-2 RNA (RT-PCR) NEGATIVE 04/05/22 04/05/22 04/05/22 18:09 20:46 20:46 WBC RBC Hgb Hct MCV MCH MCHC RDW Plt Count MPV Immature Gran % (Auto) Neut % (Auto) Lymph % (Auto) Finney % (Auto) Eos % (Auto) Baso % (Auto) Lymph # (Auto) Finney # (Auto) Eos # (Auto) Baso # (Auto) Abs Immat Gran (auto) Absolute Neuts (auto) Absolute Nucleated RBC Nucleated RBC % (auto) Smear Tech's Comments PT INR D-Dimer High Sensitivty VBG pH VBG pCO2 VBG pO2 VBG HCO3 VBG O2 Saturation VBG Base Excess Sodium Potassium Chloride Carbon Dioxide Anion Gap BUN Creatinine Estim Creat Clear Calc Estimated GFR Random Glucose Lactic Acid Lactic Acid F/U @ 2Hr 3.3 H* Calcium Total Bilirubin Direct Bilirubin AST ALT Alkaline Phosphatase Troponin I High Sens 95.5 H* B-Natriuretic Peptide Total Protein Albumin Procalcitonin 0.14 C. difficile Tox B Gene COVID-19 ([facility]) COVID-19 Clin Com Influenza Type A (PCR) Influenza Type B (PCR) RSV RNA Qual (PCR) SARS-CoV-2 RNA (RT-PCR) 04/06/22 04/06/22 04/06/22 03:55 09:26 09:26 WBC 9.3 RBC 4.28 Hgb 12.6 Hct 38.3 MCV 89.5 MCH 29.4 MCHC 32.9 RDW 14.9 Plt Count 263 D MPV 11.7 Immature Gran % (Auto) 0.3 Neut % (Auto) 57.2 Lymph % (Auto) 33.4 Finney % (Auto) 7.7 Eos % (Auto) 0.6 Baso % (Auto) 0.8 Lymph # (Auto) 3.1 Finney # (Auto) 0.7 Eos # (Auto) 0.1 Baso # (Auto) 0.1 Abs Immat Gran (auto) 0.03 Absolute Neuts (auto) 5.3 Absolute Nucleated RBC 0.000 Nucleated RBC % (auto) 0.0 Smear Tech's Comments PT INR D-Dimer High Sensitivty VBG pH VBG pCO2 VBG pO2 VBG HCO3 VBG O2 Saturation VBG Base Excess Sodium Potassium Chloride Carbon Dioxide Anion Gap BUN Creatinine Estim Creat Clear Calc Estimated GFR Random Glucose Lactic Acid 1.3 Lactic Acid F/U @ 2Hr Calcium Total Bilirubin Direct Bilirubin AST ALT Alkaline Phosphatase Troponin I High Sens B-Natriuretic Peptide Total Protein Albumin Procalcitonin C. difficile Tox B Gene NEGATIVE COVID-19 ([facility]) COVID-19 Clin Com Influenza Type A (PCR) Influenza Type B (PCR) RSV RNA Qual (PCR) SARS-CoV-2 RNA (RT-PCR) Imaging Radiologist's impression: Impressions Chest X-Ray 04/05/22 16:22 IMPRESSION: Right lung interstitial infiltrate may reflect edema or pneumonia. Right subpulmonic effusion. Abdomen/Pelvis CT 04/05/22 16:31 IMPRESSION: 1. Small to moderate volume ascites. 2. Small to moderate-sized right and small left pleural effusions. 3. No evidence of bowel obstruction or other acute intra-abdominal process. 4. Sigmoid diverticulosis. No evidence of acute diverticulitis. Assessment and Plan (1) Decompensated heart failure: Status: Acute Decompensated congestive heart failure in this middle-aged woman with what appears to be systolic dysfunction most likely tachycardia mediated cardiomyopathy related to atrial fibrillation. She is not aware of her symptoms related to atrial fibrillation at this point in time. Currently on IV Cardizem drip with better rate control but with systolic dysfunction will need to quickly switch her to oral metoprolol therapy for better rate control. Continue IV diuresis with Lasix drip. Better intake and output chart needs to be charted. Continue monitor labs and replace electrolytes. Also monitor BNP. Switch lisinopril to valsartan 80 mg b.i.d. with eventual plan to switch to Entresto.. I think patient may benefit from MIKE guided cardioversion tomorrow if her breathing status has improved. Will continue to monitor. (2) Atrial fibrillation with rapid ventricular response: Status: Acute Atrial fibrillation rapid ventricular response most likely reason for her decompensation and development of systolic dysfunction most likely tacked tachycardia mediated. Give her IV digoxin 0.25 mg x 3 doses. For now continue Cardizem drip but eventually quickly switch her to metoprolol therapy I think will pursue rhythm control and will pursue MIKE guided cardioversion tomorrow if she has improved respiratory status. Continue Eliquis therapy for anti coagulation. She says she has been religiously taking Eliquis at home. Will continue to follow with you. Procedures Date of Service Date of Service: 04/06/22
[2022-04-06] MEDS: Thiamine HCL 100 MG TABLET PO (11:15)
[2022-04-06 11:24] LABS: Anion Gap 17 (12-20); Blood Urea Nitrogen 15 mg/dL (9-16); Carbon Dioxide 22 mmol/L (22-29); Chloride 102 mmol/L (96-108); Creatinine Clr Calc Pharmacy 57.2; Estimated Glomerular Filt Rate > 60; Glucose Random 142 mg/dL (60-115); Potassium 3.9 mmol/L (3.3-5.1); Sodium 137 mmol/L (135-145)
[2022-04-06] MEDS: Digoxin 0.5 MG/2 ML AMPUL 0.25 MG IVPUSH ×2 (13:06→17:39)
--- NOTE | 2022-04-06 16:46 | P.PNIM_ITS ---
Subjective Subjective Date of Service: 04/08/22 Interval History: afib ,alcohol use ascitis Review of Systems denies any shortness of breath or abdominal pain or fever or chills or cough or phlegm Physical Exam Vital Signs: Vital Signs: Last Vital Signs Temp 97.7 F 04/06/22 16:00 Pulse 81 04/06/22 16:00 Resp 20 04/06/22 16:00 BP 112/60 04/06/22 16:00 Pulse Ox 93 04/06/22 16:00 O2 Del Method 04/06/22 16:00 BMI result Body Mass Index 22.6 Appearance: Alert.? Oriented X3.? not in distress.? cvs: [id number], [id number] , no murmur res: clear to auscultation ,no rhonchii or wheezing abd: no rebound or guarding ,nt, bs present,moderate acitis. ext pulses present , no cyanosis . neuro: axo3 , nonfocal. Objective Data Active Medications Acetaminophen (Acetaminophen 325 Mg Tablet) 650 mg PO Q6H PRN PRN Reason: Pain, Mild (Pain Scale 1-3) Apixaban (Apixaban 5 Mg Tablet) 5 mg PO BID [facility] Last Admin: 04/06/22 08:52 Dose: Not Given Documented By: JOSÉ MIGUEL Non-Admin Reason: hold Digoxin (Digoxin 0.5 Mg/2 Ml Ampul) 0.25 mg IVPUSH Q6H [facility] Stop: 04/07/22 00:31 Last Admin: 04/06/22 13:06 Dose: 0.25 mg Documented By: JOSÉ MIGUEL Diltiazem HCl (Diltiazem Hcl 30 Mg Tablet) 30 mg PO DAILY [facility]; Protocol Last Admin: 04/06/22 08:52 Dose: 30 mg Documented By: JOSÉ MIGUEL Docusate Sodium (Docusate Sodium 100 Mg Capsule) 100 mg PO DAILY PRN PRN Reason: Constipation Fluoxetine HCl (Fluoxetine Hcl 20 Mg Capsule) 20 mg PO DAILY [facility] Last Admin: 04/06/22 08:51 Dose: 20 mg Documented By: JOSÉ MIGUEL Folic Acid (Folic Acid 1 Mg Tablet) 1 mg PO DAILY [facility] Last Admin: 04/06/22 08:52 Dose: 1 mg Documented By: JOSÉ MIGUEL Furosemide (Furosemide 40 Mg/4 Ml Vial) 40 mg IVPUSH BID@0900,1800 [facility]; Protocol Last Admin: 04/06/22 08:50 Dose: 40 mg Documented By: JOSÉ MIGUEL Diltiazem HCl 125 mg/ Sodium (Chloride) 125 mls @ 0 mls/hr IVCONT .Q0M [facility]; Protocol Last Admin: 04/06/22 06:47 Dose: 10 mg/hr, 10 mls/hr Documented By: ROYAL Lisinopril (Lisinopril 5 Mg Tablet) 5 mg PO DAILY [facility]; Protocol Last Admin: 04/06/22 08:51 Dose: 5 mg Documented By: JOSÉ MIGUEL Ondansetron HCl (Ondansetron Hcl 4 Mg/2 Ml Vial) 4 mg IVPUSH Q8H PRN PRN Reason: Nausea and Vomiting Pharmacy Consult (Consult Rx Perform Med Rec) 1 each MISCELLANE ONCE PRN PRN Reason: Consult order Sodium Chloride (0.9 % Sodium Chloride Flush 3 Ml Syringe) 3 ml IVFLUSH QSHIFT [facility] Last Admin: 04/06/22 08:52 Dose: 3 ml Documented By: JOSÉ MIGUEL Thiamine HCl (Thiamine Hcl 100 Mg Tablet) 100 mg PO DAILY [facility] Last Admin: 04/06/22 11:15 Dose: 100 mg Documented By: JOSÉ MIGUEL Labs CBC & Chem 7: 04/06/22 09:26 04/07/22 10:31 Labs: Laboratory Results - last 24 hr 04/05/22 04/05/22 04/05/22 15:50 15:57 17:37 MCV 90.4 MCH 29.1 MCHC 32.2 RDW 15.1 Plt Count 199 MPV 12.1 Immature Gran % (Auto) 0.1 Neut % (Auto) 62.2 Lymph % (Auto) 30.2 Ogle % (Auto) 6.4 Eos % (Auto) 0.3 Baso % (Auto) 0.8 Lymph # (Auto) 2.3 Ogle # (Auto) 0.5 Eos # (Auto) 0.0 Baso # (Auto) 0.1 Abs Immat Gran (auto) 0.01 Absolute Neuts (auto) 4.8 Absolute Nucleated RBC 0.000 Nucleated RBC % (auto) 0.0 Smear Tech's Comments VERIFIED VBG pH 7.45 H VBG pCO2 34 VBG pO2 49 VBG HCO3 23 VBG O2 Saturation 73.0 VBG Base Excess 0.4 Anion Gap Estim Creat Clear Calc Estimated GFR Random Glucose Lactic Acid Lactic Acid F/U @ 2Hr Calcium Troponin I High Sens Procalcitonin C. difficile Tox B Gene Influenza Type A (PCR) NEGATIVE Influenza Type B (PCR) NEGATIVE RSV RNA Qual (PCR) NEGATIVE SARS-CoV-2 RNA (RT-PCR) NEGATIVE 04/05/22 04/05/22 04/05/22 18:09 20:46 20:46 MCV MCH MCHC RDW Plt Count MPV Immature Gran % (Auto) Neut % (Auto) Lymph % (Auto) Ogle % (Auto) Eos % (Auto) Baso % (Auto) Lymph # (Auto) Ogle # (Auto) Eos # (Auto) Baso # (Auto) Abs Immat Gran (auto) Absolute Neuts (auto) Absolute Nucleated RBC Nucleated RBC % (auto) Smear Tech's Comments VBG pH VBG pCO2 VBG pO2 VBG HCO3 VBG O2 Saturation VBG Base Excess Anion Gap Estim Creat Clear Calc Estimated GFR Random Glucose Lactic Acid Lactic Acid F/U @ 2Hr 3.3 H* Calcium Troponin I High Sens 95.5 H* Procalcitonin 0.14 C. difficile Tox B Gene Influenza Type A (PCR) Influenza Type B (PCR) RSV RNA Qual (PCR) SARS-CoV-2 RNA (RT-PCR) 04/06/22 04/06/22 04/06/22 03:55 09:26 09:26 MCV 89.5 MCH 29.4 MCHC 32.9 RDW 14.9 Plt Count 263 D MPV 11.7 Immature Gran % (Auto) 0.3 Neut % (Auto) 57.2 Lymph % (Auto) 33.4 Ogle % (Auto) 7.7 Eos % (Auto) 0.6 Baso % (Auto) 0.8 Lymph # (Auto) 3.1 Ogle # (Auto) 0.7 Eos # (Auto) 0.1 Baso # (Auto) 0.1 Abs Immat Gran (auto) 0.03 Absolute Neuts (auto) 5.3 Absolute Nucleated RBC 0.000 Nucleated RBC % (auto) 0.0 Smear Tech's Comments VBG pH VBG pCO2 VBG pO2 VBG HCO3 VBG O2 Saturation VBG Base Excess Anion Gap 17 Estim Creat Clear Calc 57.2 Estimated GFR > 60 Random Glucose 142 H Lactic Acid Lactic Acid F/U @ 2Hr Calcium 9.0 Troponin I High Sens Procalcitonin C. difficile Tox B Gene NEGATIVE Influenza Type A (PCR) Influenza Type B (PCR) RSV RNA Qual (PCR) SARS-CoV-2 RNA (RT-PCR) 04/06/22 09:26 MCV MCH MCHC RDW Plt Count MPV Immature Gran % (Auto) Neut % (Auto) Lymph % (Auto) Ogle % (Auto) Eos % (Auto) Baso % (Auto) Lymph # (Auto) Ogle # (Auto) Eos # (Auto) Baso # (Auto) Abs Immat Gran (auto) Absolute Neuts (auto) Absolute Nucleated RBC Nucleated RBC % (auto) Smear Tech's Comments VBG pH VBG pCO2 VBG pO2 VBG HCO3 VBG O2 Saturation VBG Base Excess Anion Gap Estim Creat Clear Calc Estimated GFR Random Glucose Lactic Acid 1.3 Lactic Acid F/U @ 2Hr Calcium Troponin I High Sens Procalcitonin C. difficile Tox B Gene Influenza Type A (PCR) Influenza Type B (PCR) RSV RNA Qual (PCR) SARS-CoV-2 RNA (RT-PCR) Assessment and Plan (1) Atrial fibrillation with rapid ventricular response: Status: Acute (2) Congestive heart failure: Status: Acute Plan 51-year-old female with past medical history of alcohol abuse, AFib, presents to the hospital with complaints of shortness of breath found to have AFib as well as CHF exacerbation # AFib with RVR - heart rate slowly improving - likely secondary to acute CHF exacerbation - no evidence of acute infection - denies any chest pain, troponin no delta - patient started on diltiazem drip improvement in her heart rate - resume her home diltiazem, and titrate diltiazem drip as tolerated, added digoxin npo past midnight for possible cardioversion - heart rate is not secondary to sepsis # acute CHF exacerbation - last echo done from 2020 shows ejection fraction of 55-60% - there is evidence of volume overload on chest x-ray, patient also has abdominal ascites, orthopnea and PND - elevated BNP - will treat with IV Lasix, strict I&O, daily weight, as well as low-sodium diet added echocardiogram - cardiology consulted # coagulopathy - patient on Eliquis for paroxysmal AFib - INR of 2.4 - no acute bleed - contionue eliquis - monitor # history of alcohol abuse - reports only drinks on weekends - denies history of withdrawals - abdominal CT shows no normal liver lesions or contour - monitor with CIWA # abd acites - Possibly in the setting of CHF - no evidence of liver cirhosis on abd ct - Will obtain paracentesis - no concern for SBP and pt with no hx of cirhosis, no fever, no leukocytosis # Anxiety/insomnia - received one dose of ambien - improved # lactic acidosis - likely 2/2 respiratory distress and A fib w RVR - not secondary to acute infection/sepsis - will trend # htn - continue linisopril DVT prophylaxis:? Eliquis Quality Stroke Does the patient have a stroke diagnosis?: No VTE Prior VTE?: No VTE Risk Level:: Medical - moderate - high VTE Device Contraindication: Treatment Not Indicated VTE Drug Contraindication: N/A - Med Ordered
[2022-04-06] MEDS: Furosemide 200 MG in 0.9 % Sodium Chloride 80 ML IVCONT (18:40)
[2022-04-06] MEDS: Potassium Chloride Packet 20 MEQ PACKET PO (18:46)
--- NOTE | 2022-04-06 19:43 | PC.NURSE ---
Alert and oriented. Denies pain. VSS, afebrile, no acute resp. distress noted. A-fib on tele, continues on cardizem gtt. IV digoxin added. HR still above 90s. Patient had 6 beats of VT this afternoon, asymptomatic. Dr. Max updated, no new order, will continue to monitor. Lasix gtt started at 5mg/hr. NPO at midnight for possible paracentesis tomorrow. Echo completed, see reports. Will continue to monitor and treat per plan of care.
--- NOTE | 2022-04-06 22:09 | PC.NURSE ---
Patient noted to have a 10 beat of vtach, pt assessed and asymptomatic. Dr. Bro notified, no new orders.
[2022-04-06] MEDS: Apixaban 5 MG TABLET PO (22:45)
[2022-04-07] VITALS (11 sets, daily range): BP systolic 90–135; BP diastolic 55–75; PULSE 75–97; RESP 16–22; TEMP 36.8–37.3; O2SAT 85–96
[2022-04-07] MEDS: Digoxin 0.5 MG/2 ML AMPUL 0.25 MG IVPUSH (00:33)
--- NOTE | 2022-04-07 02:33 | PC.NURSE ---
Pt is NPO for paracentesis tomorrow so I asked Dr. Bro if eliquis needed to be held. Per MD eliquis was not held and given as normal.
[2022-04-07] MEDS: FLUoxetine HCl 20 MG CAPSULE PO (08:34)
[2022-04-07] MEDS: lisinopriL 5 MG TABLET PO (08:34)
[2022-04-07] MEDS: dilTIAZem HCL 30 MG TABLET PO (08:35)
[2022-04-07] MEDS: Folic Acid 1 MG TABLET PO (08:35)
[2022-04-07] MEDS: Apixaban 5 MG TABLET PO ×2 (09:09→20:15)
[2022-04-07] MEDS: Thiamine HCL 100 MG TABLET PO (09:10)
--- NOTE | 2022-04-07 10:22 | P.CONAN_ITS ---
HPI - Anesthesia Eval Consult details Narrative: 51yo female patient for MIKE, cardioversion PMFSH Active Problems Active Problems: All Active Problems (Updated 04/06/22 @ 10:53 by Josue Milton MD) Decompensated heart failure (Acute) Lactic acidosis (Acute) Anxiety (Acute) Alcohol abuse (Acute) Ascites (Acute) Coagulopathy (Acute) Acute CVA (cerebrovascular accident) (Acute) NSTEMI (non-ST elevated myocardial infarction) (Acute) Parotid mass (Acute) Alcoholic fatty liver (Acute) Toxic encephalopathy (Acute) Atrial fibrillation with rapid ventricular response (Acute) Congestive heart failure (Acute) PAF (paroxysmal atrial fibrillation) (Acute) Echocardiogram shows moderate to severe LV systolic dysfunction with elevated right atrial pressures. EF 30-35% Drug overdose x2 10/2020 and 11/2020 Past Medical History Medical History (Updated 04/07/22 @ 10:46 by Lary Marti, RN) Alcoholism Cocaine dependence CVA (cerebral vascular accident) Depression Disorder of bone and articular cartilage Hx of ovarian cancer Insomnia Mixed hyperlipidemia Nasal congestion Osteopenia PAF (paroxysmal atrial fibrillation) PTSD (post-traumatic stress disorder) Tobacco abuse Family History Family History Maternal Grandmother Breast cancer Mother DVT (deep venous thrombosis) Diabetes Family history of problems with anesthesia: No Surgical History Surgical History Hx of hysterectomy History of Problems with Anesthesia: No Social History Social History (Updated 04/07/22 @ 11:24 by Marguerite Olivarez MD) Household Members: Family Housing: House Alcohol intake: never Patient Tobacco Use Status: Current everyday Tobacco user Tobacco use type: Cigarette Cigarette Packs Per Day: 0.5 Cigarettes Per Day: 10 Smoked in Last 30 Days: Yes e-Cigarette/Vaping Use: Currently Using Patient Interested in Nicotine Replacement: No Patient Given Instructions on How to Stop Smoking: Yes Date Education Initiated: 04/06/22 Second Hand Smoke Exposure: No Use of substances other than those prescribed or required for medical reasons: Yes Substance Use Type: Crack/Cocaine and Marijuana Substance Use Type Other:: Denies recent cocaine use. Tox screen not done Substance Use Frequency: Occasionally Last Used Substance: Days (ago) Currently Displaying Signs/Symptoms of Drug Intoxication Withdrawal: No Any prior treatment program specific to substance use: No Have you been hit, kicked, punched, or otherwise hurt by someone within the past year? If so, by whom?: No Do you feel safe in your current relationship?: Yes Is there a partner from a previous relationship who is making you feel unsafe now?: No Are you made to feel afraid or neglected: No Are you DNR?: No Advance Directives: No Advance Directives Information Provided: Yes Do you have thoughts of harming others: None Do you have a plan to hurt others: No Plan Recently lost weight without trying: No How much weight loss: Not applicable Eating poorly because of decreased appetite: No Nutrition screen score: 0 Nutrition Risks: No Nutritional Risk Patient : No : No Poor oral hygiene: No service: No Current occupational status: unemployed Meds Allergies Allergy/AdvReac Type Severity Reaction Status Date / Time codeine Allergy Nausea and Verified 12/11/20 12:04 Vomiting Active Medications: Current Medications Acetaminophen (Acetaminophen 325 Mg Tablet) 650 mg PO Q6H PRN PRN Reason: Pain, Mild (Pain Scale 1-3) Apixaban (Apixaban 5 Mg Tablet) 5 mg PO BID [facility] Last Admin: 04/07/22 09:09 Dose: 5 mg Diltiazem HCl (Diltiazem Hcl 30 Mg Tablet) 30 mg PO DAILY [facility]; Protocol Last Admin: 04/07/22 08:35 Dose: 30 mg Docusate Sodium (Docusate Sodium 100 Mg Capsule) 100 mg PO DAILY PRN PRN Reason: Constipation Fluoxetine HCl (Fluoxetine Hcl 20 Mg Capsule) 20 mg PO DAILY [facility] Last Admin: 04/07/22 08:34 Dose: 20 mg Folic Acid (Folic Acid 1 Mg Tablet) 1 mg PO DAILY [facility] Last Admin: 04/07/22 08:35 Dose: 1 mg Diltiazem HCl 125 mg/ Sodium (Chloride) 125 mls @ 0 mls/hr IVCONT .Q0M DIANA; Protocol Last Titration: 04/07/22 08:39 Dose: 5 mg/hr, 5 mls/hr Furosemide 200 mg/ Sodium (Chloride) 100 mls @ 2.5 mls/hr IVCONT .Q24H DIANA Last Admin: 04/06/22 18:40 Dose: 5 mg/hr, 2.5 mls/hr Lisinopril (Lisinopril 5 Mg Tablet) 5 mg PO DAILY [facility]; Protocol Last Admin: 04/07/22 08:34 Dose: 5 mg Ondansetron HCl (Ondansetron Hcl 4 Mg/2 Ml Vial) 4 mg IVPUSH Q8H PRN PRN Reason: Nausea and Vomiting Pharmacy Consult (Consult Rx Perform Med Rec) 1 each MISCELLANE ONCE PRN PRN Reason: Consult order Sodium Chloride (0.9 % Sodium Chloride Flush 3 Ml Syringe) 3 ml IVFLUSH QSHIFT [facility] Last Admin: 04/07/22 09:10 Dose: Not Given Thiamine HCl (Thiamine Hcl 100 Mg Tablet) 100 mg PO DAILY [facility] Last Admin: 04/07/22 09:10 Dose: 100 mg Home Medications Medication Instructions Recorded Confirmed Last Taken Type diltiazem HCl 30 mg tablet 1 tab PO DAILY 10/29/20 04/05/22 04/05/22 History fluoxetine 20 mg capsule 1 cap PO DAILY 10/29/20 04/05/22 04/05/22 History folic acid 1 mg tablet 1 tab PO DAILY 10/29/20 04/05/22 04/05/22 History lisinopril 5 mg tablet 1 tab PO DAILY 10/29/20 04/05/22 04/05/22 History apixaban 5 mg tablet (Eliquis) 1 tab PO BID 04/05/22 04/05/22 04/05/22 History cholecalciferol (vitamin D3) 25 25 mcg PO DAILY 04/05/22 04/05/22 04/05/22 History mcg (1,000 unit) tablet Exam Exam Date and Time: April 07, 2022 1022 Height,Weight and Vital Signs: Height 5 ft 3 in Weight 58.06 kg Last Vital Signs Temp 98.8 F 04/07/22 07:44 Pulse 97 04/07/22 07:44 Resp 20 04/07/22 07:44 BP 135/75 04/07/22 07:44 Pulse Ox 91 L 04/07/22 07:44 O2 Del Method 04/07/22 07:44 Vital Signs Temp Pulse Resp BP Pulse Ox O2 Del Method 98.8 F 85 16 115/74 95 RA 04/07/22 11:04 04/07/22 11:04 04/07/22 11:04 04/07/22 11:04 04/07/22 11:04 04/07/22 11:04 Pertinent Lab Results Pertinent Lab Results: Laboratory Tests 04/05/22 04/05/22 04/05/22 15:50 15:50 15:50 WBC 7.7 RBC 4.60 Hgb 13.4 Hct 41.6 MCV 90.4 MCH 29.1 MCHC 32.2 RDW 15.1 Plt Count 199 MPV 12.1 Immature Gran % (Auto) 0.1 Neut % (Auto) 62.2 Lymph % (Auto) 30.2 [place] % (Auto) 6.4 Eos % (Auto) 0.3 Baso % (Auto) 0.8 Lymph # (Auto) 2.3 [place] # (Auto) 0.5 Eos # (Auto) 0.0 Baso # (Auto) 0.1 Abs Immat Gran (auto) 0.01 Absolute Neuts (auto) 4.8 Absolute Nucleated RBC 0.000 Nucleated RBC % (auto) 0.0 Smear Tech's Comments VERIFIED PT 30.7 H INR 2.6 H D-Dimer High Sensitivty 1031 VBG pH VBG pCO2 VBG pO2 VBG HCO3 VBG O2 Saturation VBG Base Excess Sodium 138 Potassium 4.8 Chloride 104 Carbon Dioxide 19 L Anion Gap 20 BUN 18 H Creatinine 0.98 Estim Creat Clear Calc 54.9 Estimated GFR 59 Random Glucose 134 H Lactic Acid Lactic Acid F/U @ 2Hr Calcium 9.4 Total Bilirubin 1.5 H Direct Bilirubin 0.9 H AST 18 D ALT 24 Alkaline Phosphatase 139 H Troponin I High Sens B-Natriuretic Peptide Total Protein 6.1 L Albumin 3.8 Procalcitonin C. difficile Tox B Gene COVID-19 ([facility]) COVID-19 Clin Com Influenza Type A (PCR) Influenza Type B (PCR) RSV RNA Qual (PCR) SARS-CoV-2 RNA (RT-PCR) 04/05/22 04/05/22 04/05/22 15:50 15:50 15:50 WBC RBC Hgb Hct MCV MCH MCHC RDW Plt Count MPV Immature Gran % (Auto) Neut % (Auto) Lymph % (Auto) [place] % (Auto) Eos % (Auto) Baso % (Auto) Lymph # (Auto) [place] # (Auto) Eos # (Auto) Baso # (Auto) Abs Immat Gran (auto) Absolute Neuts (auto) Absolute Nucleated RBC Nucleated RBC % (auto) Smear Tech's Comments PT INR D-Dimer High Sensitivty VBG pH VBG pCO2 VBG pO2 VBG HCO3 VBG O2 Saturation VBG Base Excess Sodium Potassium Chloride Carbon Dioxide Anion Gap BUN Creatinine Estim Creat Clear Calc Estimated GFR Random Glucose Lactic Acid Lactic Acid F/U @ 2Hr Calcium Total Bilirubin Direct Bilirubin AST ALT Alkaline Phosphatase Troponin I High Sens 91.0 H* B-Natriuretic Peptide 2823 H Total Protein Albumin Procalcitonin C. difficile Tox B Gene COVID-19 ([facility]) Negative COVID-19 Clin Com See Note Influenza Type A (PCR) Influenza Type B (PCR) RSV RNA Qual (PCR) SARS-CoV-2 RNA (RT-PCR) 04/05/22 04/05/22 04/05/22 15:50 15:57 17:37 WBC RBC Hgb Hct MCV MCH MCHC RDW Plt Count MPV Immature Gran % (Auto) Neut % (Auto) Lymph % (Auto) [place] % (Auto) Eos % (Auto) Baso % (Auto) Lymph # (Auto) [place] # (Auto) Eos # (Auto) Baso # (Auto) Abs Immat Gran (auto) Absolute Neuts (auto) Absolute Nucleated RBC Nucleated RBC % (auto) Smear Tech's Comments PT INR D-Dimer High Sensitivty VBG pH 7.45 H VBG pCO2 34 VBG pO2 49 VBG HCO3 23 VBG O2 Saturation 73.0 VBG Base Excess 0.4 Sodium Potassium Chloride Carbon Dioxide Anion Gap BUN Creatinine Estim Creat Clear Calc Estimated GFR Random Glucose Lactic Acid 2.8 H* Lactic Acid F/U @ 2Hr Calcium Total Bilirubin Direct Bilirubin AST ALT Alkaline Phosphatase Troponin I High Sens B-Natriuretic Peptide Total Protein Albumin Procalcitonin C. difficile Tox B Gene COVID-19 ([facility]) COVID-19 Clin Com Influenza Type A (PCR) NEGATIVE Influenza Type B (PCR) NEGATIVE RSV RNA Qual (PCR) NEGATIVE SARS-CoV-2 RNA (RT-PCR) NEGATIVE 04/05/22 04/05/22 04/05/22 18:09 20:46 20:46 WBC RBC Hgb Hct MCV MCH MCHC RDW Plt Count MPV Immature Gran % (Auto) Neut % (Auto) Lymph % (Auto) [place] % (Auto) Eos % (Auto) Baso % (Auto) Lymph # (Auto) [place] # (Auto) Eos # (Auto) Baso # (Auto) Abs Immat Gran (auto) Absolute Neuts (auto) Absolute Nucleated RBC Nucleated RBC % (auto) Smear Tech's Comments PT INR D-Dimer High Sensitivty VBG pH VBG pCO2 VBG pO2 VBG HCO3 VBG O2 Saturation VBG Base Excess Sodium Potassium Chloride Carbon Dioxide Anion Gap BUN Creatinine Estim Creat Clear Calc Estimated GFR Random Glucose Lactic Acid Lactic Acid F/U @ 2Hr 3.3 H* Calcium Total Bilirubin Direct Bilirubin AST ALT Alkaline Phosphatase Troponin I High Sens 95.5 H* B-Natriuretic Peptide Total Protein Albumin Procalcitonin 0.14 C. difficile Tox B Gene COVID-19 ([facility]) COVID-19 Clin Com Influenza Type A (PCR) Influenza Type B (PCR) RSV RNA Qual (PCR) SARS-CoV-2 RNA (RT-PCR) 04/06/22 04/06/22 04/06/22 03:55 09:26 09:26 WBC 9.3 RBC 4.28 Hgb 12.6 Hct 38.3 MCV 89.5 MCH 29.4 MCHC 32.9 RDW 14.9 Plt Count 263 D MPV 11.7 Immature Gran % (Auto) 0.3 Neut % (Auto) 57.2 Lymph % (Auto) 33.4 [place] % (Auto) 7.7 Eos % (Auto) 0.6 Baso % (Auto) 0.8 Lymph # (Auto) 3.1 [place] # (Auto) 0.7 Eos # (Auto) 0.1 Baso # (Auto) 0.1 Abs Immat Gran (auto) 0.03 Absolute Neuts (auto) 5.3 Absolute Nucleated RBC 0.000 Nucleated RBC % (auto) 0.0 Smear Tech's Comments PT INR D-Dimer High Sensitivty VBG pH VBG pCO2 VBG pO2 VBG HCO3 VBG O2 Saturation VBG Base Excess Sodium 137 Potassium 3.9 Chloride 102 Carbon Dioxide 22 Anion Gap 17 BUN 15 Creatinine 0.94 Estim Creat Clear Calc 57.2 Estimated GFR > 60 Random Glucose 142 H Lactic Acid Lactic Acid F/U @ 2Hr Calcium 9.0 Total Bilirubin Direct Bilirubin AST ALT Alkaline Phosphatase Troponin I High Sens B-Natriuretic Peptide Total Protein Albumin Procalcitonin C. difficile Tox B Gene NEGATIVE COVID-19 ([facility]) COVID-19 Clin Com Influenza Type A (PCR) Influenza Type B (PCR) RSV RNA Qual (PCR) SARS-CoV-2 RNA (RT-PCR) 04/06/22 09:26 WBC RBC Hgb Hct MCV MCH MCHC RDW Plt Count MPV Immature Gran % (Auto) Neut % (Auto) Lymph % (Auto) [place] % (Auto) Eos % (Auto) Baso % (Auto) Lymph # (Auto) [place] # (Auto) Eos # (Auto) Baso # (Auto) Abs Immat Gran (auto) Absolute Neuts (auto) Absolute Nucleated RBC Nucleated RBC % (auto) Smear Tech's Comments PT INR D-Dimer High Sensitivty VBG pH VBG pCO2 VBG pO2 VBG HCO3 VBG O2 Saturation VBG Base Excess Sodium Potassium Chloride Carbon Dioxide Anion Gap BUN Creatinine Estim Creat Clear Calc Estimated GFR Random Glucose Lactic Acid 1.3 Lactic Acid F/U @ 2Hr Calcium Total Bilirubin Direct Bilirubin AST ALT Alkaline Phosphatase Troponin I High Sens B-Natriuretic Peptide Total Protein Albumin Procalcitonin C. difficile Tox B Gene COVID-19 ([facility]) COVID-19 Clin Com Influenza Type A (PCR) Influenza Type B (PCR) RSV RNA Qual (PCR) SARS-CoV-2 RNA (RT-PCR) Narrative Narrative: Date of service: 04/06/22 Procedure Type:? Transthoracic Echocardiogram ? Conclusions: - 1. Severely reduced LV systolic function with LVEF of 25-30%. Severe global hypokinesis ? 2. Moderately dilated right ventricle with severely reduced RV ? systolic function? 3. Moderate biatrial enlargement. Interatrial shunt cannot be excluded. ? 4. [id number] mitral regurgitation ? 5. Moderate? tricuspid regurgitation with significantly elevated right atrial pressures and normal RV systolic pressure ? 6. No gross pericardial effusion ? Prior Study Comparison Significant changes compared to prior study.? Both RV and LV systolic functions are significantly reduced.? Mild to moderate mitral and moderate tricuspid regurgitation noted ?? Date of Service: 04/05/22 Procedure(s): ECG 12 lead EKG Vent. Rate : 124 BPM ? ? Atrial Rate : 000 BPM ?? P-R Int : 000 ms? QRS Dur : 080 ms ? ? QT Int : 300 ms ? ? ? P-R-T Axes : 000 070 -78 degrees ?? QTc Int : 431 ms ? Atrial fibrillation with rapid ventricular response Nonspecific T wave abnormality Abnormal ECG When compared with ECG of 30-OCT-2020 08:37, Atrial fibrillation has replaced Sinus rhythm Vent. rate has increased BY? 76 BPM Nonspecific T wave abnormality now evident in Inferior leads Nonspecific T wave abnormality now evident in Lateral leads ? Date of Service: 04/05/22 Procedure(s): XR chest 1V CLINICAL INFORMATION: Cough and shortness of breath FINDINGS: Diffuse right lung interstitial infiltrate. Slight elevation of the right hemidiaphragm may reflect a subpulmonic effusion. Left lung grossly clear. Heart borderline size with normal caliber pulmonary vessels. No evidence for congestive change. IMPRESSION: Right lung interstitial infiltrate may reflect edema or pneumonia. Right subpulmonic effusion. ??? Date of Service: 04/05/22 EXAMINATION: CT ABDOMEN AND PELVIS WITHOUT CONTRAST? CLINICAL INFORMATION: Abdominal distention? COMPARISON: CT abdomen and pelvis 08/29/2008? FINDINGS: LUNG BASES: Small moderate-sized right and small left pleural effusions. Minimal dependent bibasilar atelectasis. Mild biatrial cardiac enlargement.? IMPRESSION: 1.? Small to moderate volume ascites. 2.? Small to moderate-sized right and small left pleural effusions. 3.? No evidence of bowel obstruction or other acute intra-abdominal process. 4.? Sigmoid diverticulosis. No evidence of acute diverticulitis. ? ? Airway Mallampati Class: II TM Dist: >3cm Neck ROM: Full Loose/Missing/Broken Teeth: Yes (Edentulous) Heart: Irregularly irregular Lungs: Bilateral wheezes Assessment and Plan Assessment Anesthesia Assessment: Anesthesia Plan Discussed and Chart Reviewed Final Anesthetic Review Family History of Problems with Anesthesia: No History of Problems with Anesthesia: No NPO: Yes ASA Class: IV and Emergency Final Preanesthetic Review: No Changes in Pt Med Stat, Meds/Allgs Chart Reviewed, Consent Obtained/Reviewed and Anes Risks/Benef Reviewed Patient Risk: High Procedure Risk: Intermediate Assessment/Block/Sedation in SS: Assess/Block/Sedation- Anesthetic Plan Anesthetic Plan: MAC: Disposition: Standard PACU and Inp. Admit - Standard Bed
--- NOTE | 2022-04-07 10:38 | PM.PNCARD ---
Subjective Subjective Date of Service: 04/07/22 Principal diagnosis: Atrial fibrillation, CHF Interval history: Patient says she is breathing better. Although intake and output chart are still not adequately charted. She is currently on Lasix drip. Blood pressure is stable. Heart rate is better controlled. Echocardiogram shows moderate to severe LV systolic dysfunction with elevated right atrial pressures. Review of Systems Constitutional: Reports no additional constitutional complaints Cardiovascular: Reports Abdominal Distension (Improving), Denies chest pain, Denies leg edema, Denies lightheadedness, Denies palpitations and Reports dyspnea on exertion Respiratory: Reports no additional respiratory complaints and Reports dyspnea on exertion Genitourinary: Reports no additional female genitourinary complaints Musculoskeletal: Reports no additional musculoskeletal complaints Skin/Breast: Reports system reviewed and no additional complaints, except as docu Reports system reviewed and no additional complaints, except as documented Psychiatric: Reports no additional psychiatric complaints Endocrine: Reports no additional endocrine complaints and Denies palpitations Hematologic/Lymphatic: Reports no additional hematologic/lymphatic complaints Allergic/Immunologic: Reports no additional allergic/immunologic complaints Physical Exam Vital Signs: Last Vital Signs Temp 98.8 F 04/07/22 07:44 Pulse 97 04/07/22 07:44 Resp 20 04/07/22 07:44 BP 135/75 04/07/22 07:44 Pulse Ox 91 L 04/07/22 07:44 O2 Del Method 04/07/22 07:44 BMI result Body Mass Index 22.6 Const General: cooperative, comfortable, no acute distress, alert and awake Nutritional Appearance: thin Orientation/consciousness: patient oriented x3 Neck Neck: Yes trachea midline, Yes supple and Yes JVD Resp Effort & Inspection: normal respiratory effort Auscultation: clear to auscultation bilaterally Cardio Jugular venous distension: JVD Rhythm: abnormal rhythm irregularly irregular Heart sounds: S1 normal heart sound present, S2 normal heart sound present, no click, no gallops and no murmurs GI Inspection: Yes distended Auscultation: normal bowel sounds Skin General skin exam: no rashes or lesions noted Neuro General: patient oriented x3 Extrem General: Yes no clubbing, cyanosis or edema Objective Labs and Meds Result diagrams: 04/06/22 09:26 04/06/22 09:26 Lab results: Laboratory Results - last 24 hr 04/06/22 09:26 Sodium 137 Potassium 3.9 Chloride 102 Carbon Dioxide 22 Anion Gap 17 BUN 15 Creatinine 0.94 Estim Creat Clear Calc 57.2 Estimated GFR > 60 Random Glucose 142 H Calcium 9.0 Progress Note: A&P Assessment and plan (1) Decompensated heart failure: Status: Acute Assessment and Plan: Decompensated heart failure related to LV systolic dysfunction, cardiomyopathy suspected to be tachycardia mediated cardiomyopathy. Alcoholic cardiomyopathy cannot be entirely ruled out at this point time. However requires further management of atrial fibrillation, see below. She does have biatrial enlargement which might make maintains rhythm difficult. Continue neurohormonal modulation with valsartan. Eventually switch her to Entresto therapy starting tomorrow. Add Aldactone 12.5 mg to her regimen. Complete alcohol cessation was advised. Start on metoprolol 12.5 mg q.6 hours. Continue IV diuresis with Lasix drip. Strict intake and output chart needs to be pursued. Continue to monitor renal function electrolytes. Will continue to follow with you. Pursue rhythm control, see below (2) Atrial fibrillation with rapid ventricular response: Status: Acute Assessment and Plan: Atrial fibrillation without symptoms were most likely causing her tachycardia mediated cardiomyopathy. Will pursue rhythm control approach with MIKE guided cardioversion given that she was not on oral anticoagulation therapy. She will most likely require rhythm control with amiodarone given her biatrial enlargement. Continue full oral anticoagulation, currently on Eliquis 5 mg b.i.d.. Importance of compliance with medication was discussed. Complete cessation of alcohol was discussed. Will follow with you Time Spent With Patient Time: Total time spent is greater than 50% in coordination of care (as documented) at patient's floor/unit and/or counseling patient: Progress Note: Quality Stroke Does the patient have a stroke diagnosis?: No Procedures Date of Service Date of Service: 04/07/22
--- NOTE | 2022-04-07 10:42 | CA_ITS ---
Transesophageal Echocardiogram Patient (Last, First, Middle): Cari Sánchez M Gender: Female Date of : 1970 Age: 51 Procedure Date: 04/07/2022 Procedure Type: Transesophageal Echocardiogram Location: [facility] [place] Height: 160. cm Weight: 58.06 kg BSA: 1.60 m2 Heart Rate: bpm Transmission Repairer: JED Referring MD: Josue Milton MD Hardwood Floor Finisher: Josue Milton MD Symptoms: Pre cardioversion Conclusion: ??? 1. Dilated left ventricle with severely reduced LV ejection fraction of 25-30% 2. Reduced RV systolic function 3. Biatrial enlargement, left greater than right 4. Mild mitral regurgitation 5. Mobile thrombus noted in the left atrial appendage 6. Mild mitral regurgitation moderate tricuspid regurgitation 7. No intracardiac vegetations or masses 8. Severe atherosclerotic changes noted in descending thoracic aorta Findings Procedure Information Consent was obtained prior to the procedure. Pre MIKE oral cavity was checked and revealed no overcrowding. The adult 3D probe was passed with no difficulty. This was a technically good study. Left Ventricle Mildly increased left ventricular cavity size. There is normal left ventricular wall thickness. The left ventricular systolic function is severely decreased. The visually estimated ejection fraction is between 25 30%. Diastolic function is indeterminate on the basis of available data. Right Ventricle Mildly increased right ventricular cavity size. There is severely decreased right ventricular systolic function. Atria The left atrium is moderately dilated. There is no evidence of interatrial shunt. There is a moderate thrombus seen in the left atrial appendage. Mild spontaneous echo contrast is seen in the left atrial cavity and left atrial appendage. Mild smoke formation seen with the left atrium. Left upper, left lower, right upper and right lower pulmonary vein drain normally into the left atrium. No clot seen the left atrial cavity. The right atrium is moderately dilated. IVC and SVC drain normally into the right atrium. The right atrial appendage was identified. There are no significant clot seen within the right atrial cavity. Aortic Valve Normal aortic valve structure and function. There is no aortic valve stenosis. There is no evidence of a mass on the aortic valve. There is no aortic valve regurgitation. Mitral Valve There is mild anterior and posterior mitral leaflet thickening. There is mild mitral valve regurgitation. There is no mitral valve stenosis. There is no mass noted on the mitral valve. Pulmonic Valve The pulmonic valve is normal. There is trace pulmonic valve regurgitation. Tricuspid Valve Normal tricuspid valve structure. There is moderate tricuspid valve regurgitation. The right ventricular systolic pressure is 23 mmHg. Great Vessels All visible segments of the aorta are normal in size. Large plaque is seen in the descending thoracic aorta. The visualized portions of the pulmonary artery and branches are normal. Pericardium/Pleural There is no evidence of pericardial effusion. Measurements Mitral Valve MV Pk E: 0.95 E'Medial: 10.80 E/E' Med: 8.80 Diastolic Function MV Pk E: 0.95 E'Medial: 10.80 E/E' Med: 8.80 Tricuspid Valve TR Pk Terrell: 2.23 TR Pk Grad: 20.00 RVSP: 23.00 Updated by Josue Milton on 03:30 PM with Status of Final Josue Milton MD electronically signed on 04/07/2022 3:30:46 PM with status of Final
--- NOTE | 2022-04-07 10:42 | MHC.SHP ---
Pre-Procedural Eval Section A Date of Service: 04/07/22 The patient is an INPATIENT: Yes Changes since office visit: Yes New Medical Problems and Yes Patient answered all questions; No Cold of Flu in the past 2 weeks and No Changes in Medication The History & Physical has been completed within 30 days and I have reviewed it.: Yes Section B Chief Complaint: CHF EXACERBATION Allergies: Allergies Allergy/AdvReac Type Severity Reaction Status Date / Time codeine Allergy Nausea and Verified 12/11/20 12:04 Vomiting Plan I have reviewed the history and physical and performed a pertinent physical examination on my patient. No changes have occurred unless specified.
[2022-04-07] MEDS: Albuterol Sulfate (0.083%) 2.5 MG/3 ML VIAL.NEB INHALE (11:19)
[2022-04-07 11:21] LABS: Anion Gap 15 (12-20); Blood Urea Nitrogen 13 mg/dL (9-16); Calcium 8.9 mg/dL (8.4-10.2); Carbon Dioxide 31 mmol/L (22-29); Chloride 94 mmol/L (96-108); Creatinine Clr Calc Pharmacy 62.6; Estimated Glomerular Filt Rate > 60; Glucose Random 95 mg/dL (60-115); Potassium 3.3 mmol/L (3.3-5.1); Sodium 137 mmol/L (135-145)
[2022-04-07 11:40] LABS: Anion Gap 15 (12-20); Blood Urea Nitrogen 13 mg/dL (9-16); Calcium 8.9 mg/dL (8.4-10.2); Carbon Dioxide 32 mmol/L (22-29); Chloride 94 mmol/L (96-108); Creatinine Clr Calc Pharmacy 62.6; Estimated Glomerular Filt Rate > 60; Glucose Random 96 mg/dL (60-115); Magnesium 1.4 mg/dL (1.6-2.6); Potassium 3.4 mmol/L (3.3-5.1); Sodium 138 mmol/L (135-145)
--- NOTE | 2022-04-07 12:53 | PM.EVENT ---
Event Note Date of Service: 04/07/22 Event Note: Patient underwent MIKE. This showed left atrial appendage thrombus. Cardioversion was therefore not performed
[2022-04-07] MEDS: Digoxin 0.125 MG TABLET PO (14:01)
[2022-04-07] MEDS: Magnesium Sulfate/H2O 2 GM/50 ML PIGGYBACK IV (14:01)
[2022-04-07] MEDS: Metoprolol Tartrate 25 MG TABLET PO ×2 (14:01→20:15)
[2022-04-07 14:05] LABS: B Type Natriuretic Peptide 1168 pg/mL (<100)
--- NOTE | 2022-04-07 16:38 | MHC.CM.PN ---
Per MD rounds Patient is scheduled for Cardiovertion tomorrow. DP home with or with out home services. Patient may need assist with transportation.
[2022-04-07] MEDS: Furosemide 200 MG in 0.9 % Sodium Chloride 80 ML IVCONT (20:15)
[2022-04-08] VITALS (7 sets, daily range): BP systolic 90–115; BP diastolic 57–76; PULSE 75–95; RESP 15–20; TEMP 36.1–37.2; O2SAT 92–97; BMI 20.9
[2022-04-08] MEDS: 0.9 % Sodium Chloride Flush 3 ML SYRINGE IVFLUSH ×3 (00:59→18:13)
--- NOTE | 2022-04-08 08:16 | P.PNIM_ITS ---
Subjective Subjective Date of Service: 04/07/22 Interval History: chf ,cardiac thrombus Review of Systems sob improvin leg edema/ascitis also improving Physical Exam Vital Signs: Vital Signs: Last Vital Signs 04/07/22 vitals reviewed. BMI result Appearance: Alert.? Oriented X3.? not in distress.? cvs: rrr, [id number] . res: clear to auscultation ,no rhonchii or wheezing abd: no rebound or guarding ,nt, bs present,moderate acitis. ext pulses present , no cyanosis . neuro: axo3 , nonfocal. Objective Data Active Medications Acetaminophen (Acetaminophen 325 Mg Tablet) 650 mg PO Q6H PRN PRN Reason: Pain, Mild (Pain Scale 1-3) Apixaban (Apixaban 5 Mg Tablet) 5 mg PO BID [facility] Last Admin: 04/07/22 20:15 Dose: 5 mg Documented By: KAMINI Digoxin (Digoxin 0.125 Mg Tablet) 0.125 mg PO DAILY [facility] Last Admin: 04/07/22 14:01 Dose: 0.125 mg Documented By: GILL Docusate Sodium (Docusate Sodium 100 Mg Capsule) 100 mg PO DAILY PRN PRN Reason: Constipation Fluoxetine HCl (Fluoxetine Hcl 20 Mg Capsule) 20 mg PO DAILY [facility] Last Admin: 04/07/22 08:34 Dose: 20 mg Documented By: GILL Folic Acid (Folic Acid 1 Mg Tablet) 1 mg PO DAILY [facility] Last Admin: 04/07/22 08:35 Dose: 1 mg Documented By: GILL Furosemide 200 mg/ Sodium (Chloride) 100 mls @ 2.5 mls/hr IVCONT .Q24H [facility] Last Admin: 04/07/22 20:15 Dose: 5 mg/hr, 2.5 mls/hr Documented By: KAMINI Lisinopril (Lisinopril 5 Mg Tablet) 5 mg PO DAILY [facility]; Protocol Last Admin: 04/07/22 08:34 Dose: 5 mg Documented By: GILL Metoprolol Tartrate (Metoprolol Tartrate 25 Mg Tablet) 25 mg PO BID [facility]; Protocol Last Admin: 04/07/22 20:15 Dose: 25 mg Documented By: KAMINI Ondansetron HCl (Ondansetron Hcl 4 Mg/2 Ml Vial) 4 mg IVPUSH Q8H PRN PRN Reason: Nausea and Vomiting Ondansetron HCl (Ondansetron Hcl 4 Mg/2 Ml Vial) 4 mg IVPUSH ONCE PRN PRN Reason: Nausea and Vomiting Pharmacy Consult (Consult Rx Perform Med Rec) 1 each MISCELLANE ONCE PRN PRN Reason: Consult order Potassium Chloride (Potassium Chloride Packet 20 Meq Packet) 20 meq PO ONCE ONE Stop: 04/08/22 08:15 Sodium Chloride (0.9 % Sodium Chloride Flush 3 Ml Syringe) 3 ml IVFLUSH QSHIFT [facility] Last Admin: 04/08/22 00:59 Dose: 3 ml Documented By: ROYAL Thiamine HCl (Thiamine Hcl 100 Mg Tablet) 100 mg PO DAILY [facility] Last Admin: 04/07/22 09:10 Dose: 100 mg Documented By: ANITA-TREASURE Labs CBC & Chem 7: 04/06/22 09:26 04/07/22 10:31 Labs: Laboratory Results - last 24 hr 04/07/22 04/07/22 04/07/22 10:31 10:31 10:31 Anion Gap 15 15 Estim Creat Clear Calc 62.6 62.6 Estimated GFR > 60 > 60 Random Glucose 96 95 Calcium 8.9 8.9 Magnesium 1.4 L* B-Natriuretic Peptide 1168 H Microbiology Microbiology Results: Microbiology 04/05/22 15:35 Blood Culture - Preliminary Blood - Venous No growth after 48 hours. 04/05/22 15:50 Blood Culture - Preliminary Blood - Venous No growth after 48 hours. Assessment and Plan (1) Atrial fibrillation with rapid ventricular response: Status: Acute (2) Congestive heart failure: Status: Acute (3) Intracardiac thrombosis: Status: Acute (4) Hypomagnesemia: Status: Acute Plan 51-year-old female with past medical history of alcohol abuse, AFib, presents to the hospital with complaints of shortness of breath found to have AFib as well as CHF exacerbation # AFib with RVR - heart rate slowly improving - likely secondary to acute CHF exacerbation - no evidence of acute infection - denies any chest pain, troponin no delta - patient started on diltiazem drip improvement in her heart rate - resume her home diltiazem, and titrate diltiazem drip as tolerated, added digoxin echocardiogram showed intracardiac thrombus to cardioversion was not performed - heart rate is not secondary to sepsis # acute CHF exacerbation - last echo done from 2020 shows ejection fraction of 55-60% - there is evidence of volume overload on chest x-ray, patient also has abdominal ascites, orthopnea and PND - elevated BNP - will treat with IV Lasix, strict I&O, daily weight, as well as low-sodium diet added echocardiogram-Intracardiac thrombus # coagulopathy - patient on Eliquis for paroxysmal AFib - INR of 2.4 - no acute bleed - contionue eliquis - monitor # history of alcohol abuse - reports only drinks on weekends - denies history of withdrawals - abdominal CT shows no normal liver lesions or contour - monitor with CIWA # abd acites - Possibly in the setting of CHF - no evidence of liver cirhosis on abd ct - Will obtain paracentesis - no concern for SBP and pt with no hx of cirhosis, no fever, no leukocytosis # Anxiety/insomnia - received one dose of ambien - improved # lactic acidosis - likely 2/2 respiratory distress and A fib w RVR - not secondary to acute infection/sepsis - will trend # htn - continue linisopril DVT prophylaxis:? Eliquis ongoing inpatient stay for:chf exacerbation need IV diuretics, hypomagnesemia - needed IV repletion, intracardiac thrombus new, in addition adjusted AFib medications need tele monitoring Quality Stroke Does the patient have a stroke diagnosis?: No VTE Prior VTE?: No VTE Risk Level:: Medical - moderate - high VTE Device Contraindication: Treatment Not Indicated VTE Drug Contraindication: N/A - Med Ordered
[2022-04-08] MEDS: Potassium Chloride Packet 20 MEQ PACKET PO (08:31)
[2022-04-08] MEDS: Digoxin 0.125 MG TABLET PO (08:32)
[2022-04-08] MEDS: Folic Acid 1 MG TABLET PO (08:32)
[2022-04-08] MEDS: Thiamine HCL 100 MG TABLET PO (08:32)
[2022-04-08] MEDS: FLUoxetine HCl 20 MG CAPSULE PO (08:32)
[2022-04-08] MEDS: Apixaban 5 MG TABLET PO ×2 (08:32→20:10)
[2022-04-08] MEDS: Metoprolol Tartrate 25 MG TABLET PO ×2 (10:00→20:10)
[2022-04-08 10:28] LABS: Anion Gap 15 (12-20); Blood Urea Nitrogen 16 mg/dL (9-16); Calcium 9.1 mg/dL (8.4-10.2); Carbon Dioxide 35 mmol/L (22-29); Chloride 91 mmol/L (96-108); Creatinine Clr Calc Pharmacy 59.1; Estimated Glomerular Filt Rate > 60; Glucose Random 111 mg/dL (60-115); Magnesium 1.8 mg/dL (1.6-2.6); Potassium 3.6 mmol/L (3.3-5.1); Sodium 137 mmol/L (135-145)
--- NOTE | 2022-04-08 10:38 | P.PNCA_ITS ---
Subjective Subjective Date of Service: 04/08/22 <OSMAN Yun - Last Filed: 04/08/22 10:58> 04/08/22 <Josue Milton MD - Last Filed: 04/08/22 11:37> Principal diagnosis: Atrial fibrillation, CHF <OSMAN Yun - Last Filed: 04/08/22 10:58> Interval history: Seen at 0930. Today she is resting in bed without acute distress. She reports feeling tired but well. Breathing is back to normal. She no longer feels heart palpitations. No chest pains, dizziness, edema. Has been up to the bathroom and reports being steady on feet. Lasix drip on hold. Tele monitor shows Afib rates 70-80s. <OSMAN Yun - Last Filed: 04/08/22 10:58> Review of Systems Review of Systems as above <OSMAN Yun - Last Filed: 04/08/22 10:58> Yes all other systems are reviewed and are negative <OSMAN Yun - Last Filed: 04/08/22 10:58> Physical Exam Vital Signs: Last Vital Signs Temp 98.5 F 04/08/22 08:00 Pulse 87 04/08/22 08:00 Resp 18 04/08/22 08:00 BP 96/57 L 04/08/22 08:00 Pulse Ox 97 04/08/22 08:00 O2 Del Method 04/08/22 08:00 O2 Flow Rate 4 04/07/22 14:00 BMI result Body Mass Index 20.9 <OSMAN Yun - Last Filed: 04/08/22 10:58> Const General: cooperative, comfortable and no acute distress <OSMAN Yun - Last Filed: 04/08/22 10:58> Orientation/consciousness: patient oriented x3 <OSMAN Yun Last Filed: 04/08/22 10:58> Neck Neck: Yes normal visual inspection and Yes no JVD <OSMAN Yun - Last Filed: 04/08/22 10:58> Resp Effort & Inspection: normal respiratory effort <OSMAN Yun - Last Filed: 04/08/22 10:58> Auscultation: clear to auscultation bilaterally, no crackles, no rales, no rhonchi and no wheezes <Catalinasonya Aguilera [facility] - Last Filed: 04/08/22 10:58> Cardio Rate: regular rate <[facility] Last Filed: 04/08/22 10:58> Rhythm: abnormal rhythm <[facility] Last Filed: 04/08/22 10:58> Heart sounds: S1 normal heart sound present, S2 normal heart sound present, no gallops, no murmurs and no rubs <[facility] - Last Filed: 04/08/22 10:58> Peripheral pulses: Peripheral pulses 2+ throughout <[facility] - Last Filed: 04/08/22 10:58> GI Inspection: Yes normal to inspection <[facility] - Last Filed: 04/08/22 10:58> Neuro General: patient oriented x3 <[facility] Last Filed: 04/08/22 10:58> Extrem General: Yes normal to inspection, No no pedal edema and No calf tenderness <[facility] - Last Filed: 04/08/22 10:58> Psych Appearance: grossly normal <[facility] Last Filed: 04/08/22 10:58> Mental Status: mental status grossly normal <[facility] - Last Filed: 04/08/22 10:58> Speech and movement: Normal speech and movement present <[facility] Last Filed: 04/08/22 10:58> Objective Labs and Meds Result diagrams: : 04/06/22 09:26 04/08/22 10:05 <Catalina Aguilera [facility] - Last Filed: 04/08/22 10:58> Lab results: Laboratory Results - last 24 hr 04/07/22 04/07/22 04/07/22 10:31 10:31 10:31 Sodium 138 137 Potassium 3.4 3.3 Chloride 94 L 94 L Carbon Dioxide 32 H 31 H Anion Gap 15 15 BUN 13 13 Creatinine 0.86 0.86 Estim Creat Clear Calc 62.6 62.6 Estimated GFR > 60 > 60 Random Glucose 96 95 Calcium 8.9 8.9 Magnesium 1.4 L* B-Natriuretic Peptide 1168 H 04/08/22 10:05 Sodium 137 Potassium 3.6 Chloride 91 L Carbon Dioxide 35 H Anion Gap 15 BUN 16 Creatinine 0.91 Estim Creat Clear Calc 59.1 Estimated GFR > 60 Random Glucose 111 Calcium 9.1 Magnesium 1.8 B-Natriuretic Peptide <OSMAN Yun - Last Filed: 04/08/22 10:58> Progress Note: A&P Assessment and plan (1) Atrial fibrillation with rapid ventricular response: Status: Acute <OSMAN Yun - Last Filed: 04/08/22 10:58> Assessment and Plan: Hx of PAF. Presented to [facility] with sob and palpitations for 1 week. EKG confirmed afib RVR. Bedside echo showed EF 30-35%. Prior echo from 10/2020 showed EF 55-60%. She was treated with heart rate control and started on Eliquis for anticoagulation. She went to MIKE yesterday which showed EF 25-30%, ENRIQUETA thrombus. CVR was cancelled. We will continue to treat with heart rate control. Tele currently shows afib rates 70-80s. Continue on Digoxin and Metoprolol. Continue Eliquis without interruption. Pt informed of ENRIQUETA thrombus, ongoing AF and strict need for med compliance to reduce stroke risk. She states understanding. <OSMAN Yun - Last Filed: 04/08/22 10:58> Hx of PAF. Presented to [facility] with sob and palpitations for 1 week. EKG confirmed afib RVR. Bedside echo showed EF 30-35%. Prior echo from 10/2020 showed EF 55-60%. She was treated with heart rate control and started on Eliquis for anticoagulation. She went to MIKE yesterday which showed EF 25-30%, ENRIQUETA thrombus. CVR was cancelled. We will continue to treat with heart rate control. Tele currently shows afib rates 70-80s. Continue on Digoxin and Metoprolol. Continue Eliquis without interruption. Pt informed of ENRIQUETA thrombus, ongoing AF and strict need for med compliance to reduce stroke risk. She states understanding. Patient seen and examined. Case discussed with Catalina Aguilera. Noted to have left atrial appendage thrombus yesterday and therefore did not undergo cardioversion. Continue rate control with metoprolol as well as digoxin which is well controlled at this point time. Continue uninterrupted full oral anticoagulation with Eliquis for the next 3 weeks and will bring her back for outpatient MIKE guided cardioversion again in 3 weeks. <Josue Milton MD - Last Filed: 04/08/22 11:37> (2) Congestive heart failure: Status: Acute <OSMAN Yun - Last Filed: 04/08/22 10:58> Assessment and Plan: SOB present on admit. BNP elevated to 2823. CXR with bilateral pleural effusions. CT abdomen shows small to mod volume ascites. She was treated for acute systolic CHF and diuresed with lasix drip. Urine outpt yesterday over 2 Liters. Fluid balance since admit documented as neg 544cc. Today she reports feeling well, breathing comfortable. No rales, JVD. Her Lasix drip was placed on hold this am as labs show show further drop in chloride and rise in CO2. Cr 0.91.BNP 1993 yest, was 1168 yest. Agree with change from Lasix drip to PO. Continue to monitor for CHF symptoms. Continue strict I+O. Close monitoring of electrolyte and kidney function. BNP in am. <OSMAN Yun - Last Filed: 04/08/22 10:58> SOB present on admit. BNP elevated to 2823. CXR with bilateral pleural effusions. CT abdomen shows small to mod volume ascites. She was treated for acute systolic CHF and diuresed with lasix drip. Urine outpt yesterday over 2 Liters. Fluid balance since admit documented as neg 544cc. Today she reports feeling well, breathing comfortable. No rales, JVD. Her Lasix drip was placed on hold this am as labs show show further drop in chloride and rise in CO2. Cr 0.91.BNP 1993 yest, was 1168 yest. Agree with change from Lasix drip to PO. Continue to monitor for CHF symptoms. Continue strict I+O. Close monitoring of electrolyte and kidney function. BNP in am. Patient seen and examined. Case discussed with Catalina Aguilera. Heart failure doing much better. Patient symptom medically improved. Switch to p.o. Lasix. Add Diovan 20 mg b.i.d. for afterload reduction as well as neurohormonal modulation. Continue metoprolol and digoxin. BNP is improved. Heart failure management discussed importance of compliance with medication follow-up was discussed. She understands agrees. Will set up for follow-up in 2 weeks time. Plan for discharge tomorrow <Josue Milton MD - Last Filed: 04/08/22 11:37> (3) Cardiomyopathy: Status: Acute <OSMAN Yun - Last Filed: 04/08/22 10:58> Assessment and Plan: Reduction in EF noted as above. Could be tachycardia mediated cardiomyopathy. Will plan for outpt limited echo in few weeks to reassess. Will need eventual ischemic eval when appropriate. Will Stop Lisinopril and start valsartan 20mg bid. Continue Metoprolol. Continue Lasix. <OSMAN Yun - Last Filed: 04/08/22 10:58> (4) Intracardiac thrombosis: Status: Acute <OSMAN Yun - Last Filed: 04/08/22 10:58> Assessment and Plan: As above <OSMAN Yun - Last Filed: 04/08/22 10:58> Time Spent With Patient Time: Total time spent is greater than 50% in coordination of care (as documented) at patient's floor/unit and/or counseling patient: 24 <OSMAN Yun Last Filed: 04/08/22 10:58> Progress Note: Quality Stroke Does the patient have a stroke diagnosis?: No <OSMAN Yun - Last Filed: 04/08/22 10:58> Procedures Date of Service Date of Service: 04/08/22 <OSMAN Yun - Last Filed: 04/08/22 10:58>
[2022-04-08 10:41] LABS: B Type Natriuretic Peptide 1994 pg/mL (<100)
[2022-04-08] MEDS: Magnesium Oxide 400 MG TABLET 800 MG PO (11:28)
--- NOTE | 2022-04-08 12:48 | HO.PM.IMPN ---
Subjective Subjective Date of Service: 04/08/22 Interval History: chf ,ascitis Review of Systems seems to be improving, denies any chest pain or shortness of breath or fever or chills or cough or phlegm. Physical Exam Vital Signs: Vital Signs: Last Vital Signs Temp 98.9 F 04/08/22 11:27 Pulse 88 04/08/22 11:27 Resp 18 04/08/22 11:27 BP 101/57 L 04/08/22 11:27 Pulse Ox 92 04/08/22 11:27 O2 Del Method 04/08/22 11:27 O2 Flow Rate 4 04/07/22 14:00 BMI result Body Mass Index 20.9 ?Appearance: Alert.? Oriented X3.? not in distress.? cvs: rrr, [id number] . res: clear to auscultation ,no rhonchii or wheezing abd: no rebound or guarding ,nt, bs present,moderate acitis. ext pulses present , no cyanosis . neuro: axo3 , nonfocal. Objective Data Active Medications Acetaminophen (Acetaminophen 325 Mg Tablet) 650 mg PO Q6H PRN PRN Reason: Pain, Mild (Pain Scale 1-3) Apixaban (Apixaban 5 Mg Tablet) 5 mg PO BID [facility] Last Admin: 04/08/22 08:32 Dose: 5 mg Documented By: JORGE A Digoxin (Digoxin 0.125 Mg Tablet) 0.125 mg PO DAILY [facility] Last Admin: 04/08/22 08:32 Dose: 0.125 mg Documented By: JORGE A Docusate Sodium (Docusate Sodium 100 Mg Capsule) 100 mg PO DAILY PRN PRN Reason: Constipation Fluoxetine HCl (Fluoxetine Hcl 20 Mg Capsule) 20 mg PO DAILY [facility] Last Admin: 04/08/22 08:32 Dose: 20 mg Documented By: JORGE A Folic Acid (Folic Acid 1 Mg Tablet) 1 mg PO DAILY [facility] Last Admin: 04/08/22 08:32 Dose: 1 mg Documented By: JORGE A Furosemide (Furosemide 40 Mg Tablet) 40 mg PO BID@0900,1800 [facility]; Protocol Magnesium Oxide (Magnesium Oxide 400 Mg Tablet) 800 mg PO DAILY [facility] Last Admin: 04/08/22 11:28 Dose: 800 mg Documented By: JORGE A Metoprolol Tartrate (Metoprolol Tartrate 25 Mg Tablet) 25 mg PO BID [facility]; Protocol Last Admin: 04/08/22 10:00 Dose: 25 mg Documented By: JORGE A Ondansetron HCl (Ondansetron Hcl 4 Mg/2 Ml Vial) 4 mg IVPUSH Q8H PRN PRN Reason: Nausea and Vomiting Ondansetron HCl (Ondansetron Hcl 4 Mg/2 Ml Vial) 4 mg IVPUSH ONCE PRN PRN Reason: Nausea and Vomiting Pharmacy Consult (Consult Rx Perform Med Rec) 1 each MISCELLANE ONCE PRN PRN Reason: Consult order Sodium Chloride (0.9 % Sodium Chloride Flush 3 Ml Syringe) 3 ml IVFLUSH QSHIFT [facility] Last Admin: 04/08/22 08:32 Dose: 3 ml Documented By: JORGE A Thiamine HCl (Thiamine Hcl 100 Mg Tablet) 100 mg PO DAILY [facility] Last Admin: 04/08/22 08:32 Dose: 100 mg Documented By: JORGE A Valsartan (Valsartan 40 Mg Tablet) 20 mg PO BID [facility]; Protocol Labs CBC & Chem 7: 04/06/22 09:26 04/08/22 10:05 Labs: Laboratory Results - last 24 hr 04/07/22 04/08/22 04/08/22 10:31 10:05 10:05 Anion Gap 15 Estim Creat Clear Calc 59.1 Estimated GFR > 60 Random Glucose 111 Calcium 9.1 Magnesium 1.8 B-Natriuretic Peptide 1168 H 1994 H Microbiology Microbiology Results: Microbiology 04/05/22 15:35 Blood Culture - Preliminary Blood - Venous No growth after 48 hours. 04/05/22 15:50 Blood Culture - Preliminary Blood - Venous No growth after 48 hours. Assessment and Plan (1) Atrial fibrillation with rapid ventricular response: Status: Acute (2) Congestive heart failure: Status: Acute (3) Intracardiac thrombosis: Status: Acute (4) Hypomagnesemia: Status: Acute Plan 51-year-old female with past medical history of alcohol abuse, AFib, presents to the hospital with complaints of shortness of breath found to have AFib as well as CHF exacerbation # AFib with RVR - heart rate slowly improving - likely secondary to acute CHF exacerbation - no evidence of acute infection - denies any chest pain, troponin no delta received diltiazem drip improvement in her heart rate-now switched to metoprolol and digoxin echocardiogram showed intracardiac thrombus to cardioversion was not performed-already on eliquis. # acute CHF exacerbation - last echo done from 2020 shows ejection fraction of 55-60% - there is evidence of volume overload on chest x-ray, patient also has abdominal ascites, orthopnea and PND - elevated BNP added echocardiogram-Intracardiac thrombus, ef 20-30% switched to po lasix,also will stop lisinopril and added valsartan -if tolerates plan for entresto outpatient. # coagulopathy - patient on Eliquis for paroxysmal AFib - INR of 2.4 - no acute bleed - contionue eliquis - monitor # history of alcohol abuse - reports only drinks on weekends - denies history of withdrawals - abdominal CT shows no normal liver lesions or contour - monitor with CIWA # abd acites - Possibly in the setting of CHF - no evidence of liver cirhosis on abd ct - Will obtain paracentesis - no concern for SBP and pt with no hx of cirhosis, no fever, no leukocytosis # Anxiety/insomnia - received one dose of ambien - improved # lactic acidosis - likely 2/2 respiratory distress and A fib w RVR - not secondary to acute infection/sepsis - will trend # htn - continue linisopril DVT prophylaxis:? Eliquis ongoing inpatient stay for:chf exacerbation need IV diuretics, hypomagnesemia - needed IV repletion, intracardiac thrombus new, in addition adjusted AFib medications need tele monitoring Quality Stroke Does the patient have a stroke diagnosis?: No VTE Prior VTE?: No VTE Risk Level:: Medical - moderate - high VTE Device Contraindication: Treatment Not Indicated VTE Drug Contraindication: N/A - Med Ordered
--- NOTE | 2022-04-08 12:55 | P.PNIM_ITS ---
Subjective Subjective Date of Service: 04/08/22 Interval History: chf ,ascitis Review of Systems seems to be improving, denies any chest pain or shortness of breath or fever or chills or cough or phlegm. Physical Exam Vital Signs: Vital Signs: Last Vital Signs Temp 98.9 F 04/08/22 11:27 Pulse 88 04/08/22 11:27 Resp 18 04/08/22 11:27 BP 101/57 L 04/08/22 11:27 Pulse Ox 92 04/08/22 11:27 O2 Del Method 04/08/22 11:27 O2 Flow Rate 4 04/07/22 14:00 BMI result Body Mass Index 20.9 Appearance: Alert.? Oriented X3.? not in distress.? cvs: rrr, [id number] . res: clear to auscultation ,no rhonchii or wheezing abd: no rebound or guarding ,nt, bs present,moderate acitis. ext pulses present , no cyanosis . neuro: axo3 , nonfocal. Objective Data Active Medications Acetaminophen (Acetaminophen 325 Mg Tablet) 650 mg PO Q6H PRN PRN Reason: Pain, Mild (Pain Scale 1-3) Apixaban (Apixaban 5 Mg Tablet) 5 mg PO BID [facility] Last Admin: 04/08/22 08:32 Dose: 5 mg Documented By: JORGE A Digoxin (Digoxin 0.125 Mg Tablet) 0.125 mg PO DAILY [facility] Last Admin: 04/08/22 08:32 Dose: 0.125 mg Documented By: JORGE A Docusate Sodium (Docusate Sodium 100 Mg Capsule) 100 mg PO DAILY PRN PRN Reason: Constipation Fluoxetine HCl (Fluoxetine Hcl 20 Mg Capsule) 20 mg PO DAILY [facility] Last Admin: 04/08/22 08:32 Dose: 20 mg Documented By: JORGE A Folic Acid (Folic Acid 1 Mg Tablet) 1 mg PO DAILY [facility] Last Admin: 04/08/22 08:32 Dose: 1 mg Documented By: JORGE A Furosemide (Furosemide 40 Mg Tablet) 40 mg PO BID@0900,1800 [facility]; Protocol Magnesium Oxide (Magnesium Oxide 400 Mg Tablet) 800 mg PO DAILY [facility] Last Admin: 04/08/22 11:28 Dose: 800 mg Documented By: JORGE A Metoprolol Tartrate (Metoprolol Tartrate 25 Mg Tablet) 25 mg PO BID [facility]; Protocol Last Admin: 04/08/22 10:00 Dose: 25 mg Documented By: JORGE A Ondansetron HCl (Ondansetron Hcl 4 Mg/2 Ml Vial) 4 mg IVPUSH Q8H PRN PRN Reason: Nausea and Vomiting Ondansetron HCl (Ondansetron Hcl 4 Mg/2 Ml Vial) 4 mg IVPUSH ONCE PRN PRN Reason: Nausea and Vomiting Pharmacy Consult (Consult Rx Perform Med Rec) 1 each MISCELLANE ONCE PRN PRN Reason: Consult order Sodium Chloride (0.9 % Sodium Chloride Flush 3 Ml Syringe) 3 ml IVFLUSH QSHIFT [facility] Last Admin: 04/08/22 08:32 Dose: 3 ml Documented By: JORGE A Thiamine HCl (Thiamine Hcl 100 Mg Tablet) 100 mg PO DAILY [facility] Last Admin: 04/08/22 08:32 Dose: 100 mg Documented By: JORGE A Valsartan (Valsartan 40 Mg Tablet) 20 mg PO BID [facility]; Protocol Labs CBC & Chem 7: 04/06/22 09:26 04/08/22 10:05 Labs: Laboratory Results - last 24 hr 04/07/22 04/08/22 04/08/22 10:31 10:05 10:05 Anion Gap 15 Estim Creat Clear Calc 59.1 Estimated GFR > 60 Random Glucose 111 Calcium 9.1 Magnesium 1.8 B-Natriuretic Peptide 1168 H 1994 H Microbiology Microbiology Results: Microbiology 04/05/22 15:35 Blood Culture - Preliminary Blood - Venous No growth after 48 hours. 04/05/22 15:50 Blood Culture - Preliminary Blood - Venous No growth after 48 hours. Assessment and Plan Plan 51-year-old female with past medical history of alcohol abuse, AFib, presents to the hospital with complaints of shortness of breath found to have AFib as well as CHF exacerbation # AFib with RVR - heart rate slowly improving - likely secondary to acute CHF exacerbation - no evidence of acute infection - denies any chest pain, troponin no delta ? received diltiazem drip improvement in her heart rate-now switched to metoprolol and? digoxin ? echocardiogram showed intracardiac thrombus to cardioversion was not performed-already on eliquis. # acute CHF exacerbation - last echo done from 2020 shows ejection fraction of 55-60% - there is evidence of volume overload on chest x-ray, patient also has abdominal ascites, orthopnea and PND - elevated BNP added echocardiogram-Intracardiac thrombus, ef 20-30% switched to po lasix,also will stop lisinopril and added valsartan -if tolerates plan for? entresto outpatient. # coagulopathy - patient on Eliquis for paroxysmal AFib - INR of 2.4 - no acute bleed - contionue eliquis - monitor # history of alcohol abuse - reports only drinks on weekends - denies history of withdrawals - abdominal CT shows no normal liver lesions or contour - monitor with CIWA # abd acites - Possibly in the setting of CHF - no evidence of liver cirhosis on abd ct - Will obtain paracentesis - no concern for SBP and pt with no hx of cirhosis, no fever, no leukocytosis # Anxiety/insomnia - received one dose of ambien - improved # lactic acidosis - likely 2/2 respiratory distress and A fib w RVR - not secondary to acute infection/sepsis - will trend # htn - continue linisopril DVT prophylaxis:? Eliquis ?ongoing inpatient stay for:chf? exacerbation need IV diuretics, hypomagnesemia - needed IV repletion, intracardiac thrombus new, in addition adjusted AFib medications need tele monitoring Quality Stroke Does the patient have a stroke diagnosis?: No VTE Prior VTE?: No VTE Risk Level:: Medical - moderate - high VTE Device Contraindication: Treatment Not Indicated VTE Drug Contraindication: N/A - Med Ordered
[2022-04-08] MEDS: Furosemide 40 MG TABLET PO (18:12)
--- NOTE | 2022-04-08 18:47 | HO.POSTANES ---
Post Anesthesia Evaluation Post Anesthesia Evaluation Vital Signs: Vital Signs Temp Pulse Resp BP Pulse Ox O2 Del Method 04/08/22 11:12 93 Room Air 04/08/22 15:00 96.9 F 95 15 90/59 L 94 Room Air 04/08/22 11:27 98.9 F 88 18 101/57 L 92 Room Air 04/08/22 08:00 98.5 F 87 18 96/57 L 97 Room Air Anesthesia: Monitored Mental Status: Awake Pain Control: Satisfactory Nausea/Vomiting: None Hydration: Adequate Anesthesia-Related Issues: No Anes. Related Issues
[2022-04-08] MEDS: Valsartan 40 MG TABLET 20 MG PO (20:10)
[2022-04-08 21:38] LABS: Appearance Urine Clear; Color Urine Yellow; Glucose Urine UA Negative (Negative); Leukocyte Esterase Urine Negative (Negative); Nitrite Urine Negative (Negative); PH 8.5 (5.0-9.0); Urine Blood Negative (Negative); Urine Ketones Negative (Negative); Urine Protein Negative (Neg-Trace)
[2022-04-09 00:12] VITALS: BP 97/53; PULSE 85; RESP 16; TEMP 36.7; O2SAT 95
[2022-04-09] MEDS: 0.9 % Sodium Chloride Flush 3 ML SYRINGE IVFLUSH ×2 (03:18→09:53)
[2022-04-09 04:39] VITALS: BP 103/67; PULSE 80; RESP 18; TEMP 36.8; O2SAT 91
[2022-04-09 07:15] VITALS: BP 106/62; PULSE 82; RESP 16; TEMP 36.6; O2SAT 96
[2022-04-09 08:19] LABS: Anion Gap 16 (12-20); Blood Urea Nitrogen 21 mg/dL (9-16); Calcium 9.7 mg/dL (8.4-10.2); Carbon Dioxide 27 mmol/L (22-29); Chloride 98 mmol/L (96-108); Creatinine Clr Calc Pharmacy 66.4; Estimated Glomerular Filt Rate > 60; Glucose Random 118 mg/dL (60-115); Potassium 4.3 mmol/L (3.3-5.1); Sodium 137 mmol/L (135-145)
[2022-04-09] MEDS: Digoxin 0.125 MG TABLET PO (09:49)
[2022-04-09] MEDS: Apixaban 5 MG TABLET PO (09:49)
[2022-04-09] MEDS: Metoprolol Tartrate 25 MG TABLET PO (09:49)
[2022-04-09] MEDS: FLUoxetine HCl 20 MG CAPSULE PO (09:49)
[2022-04-09] MEDS: Folic Acid 1 MG TABLET PO (09:49)
[2022-04-09] MEDS: Valsartan 40 MG TABLET 20 MG PO (09:50)
[2022-04-09] MEDS: Magnesium Oxide 400 MG TABLET 800 MG PO (09:50)
[2022-04-09] MEDS: Thiamine HCL 100 MG TABLET PO (09:55)
--- NOTE | 2022-04-09 10:02 | PM.PNCARD ---
Subjective Subjective Date of Service: 04/09/22 <OSMAN Yun - Last Filed: 04/09/22 10:19> 04/09/22 <Josue Milton MD - Last Filed: 04/09/22 10:38> Principal diagnosis: Atrial fibrillation, CHF, ENRIQUETA thrombus, CMP <OSMAN Yun - Last Filed: 04/09/22 10:19> Interval history: Seen at 0930. Today she reports feeling well and ready to go home. Breathing comfortable, No PND, orthopnea or edema. No chest pains or palpitations. Abdomen is soft and mildly puffy . She states it is much improved since admission. Reports steadiness on feet and ambulates in room without difficulty. Tele monitor showing afib, rates 70-80s. <OSMAN Yun - Last Filed: 04/09/22 10:19> Review of Systems Review of Systems as above <OSMAN Yun - Last Filed: 04/09/22 10:19> Yes all other systems are reviewed and are negative <OSMAN Yun - Last Filed: 04/09/22 10:19> Physical Exam Vital Signs: Last Vital Signs Temp 97.8 F 04/09/22 07:15 Pulse 82 04/09/22 07:15 Resp 16 04/09/22 07:15 BP 106/62 04/09/22 07:15 Pulse Ox 96 04/09/22 07:15 O2 Del Method 04/09/22 07:15 O2 Flow Rate 4 04/07/22 14:00 BMI result Body Mass Index 20.9 <OSMAN Yun - Last Filed: 04/09/22 10:19> Const General: cooperative, comfortable and no acute distress <OSMAN Yun - Last Filed: 04/09/22 10:19> Neck Neck: Yes normal visual inspection and Yes no JVD <OSMAN Yun - Last Filed: 04/09/22 10:19> Resp Effort & Inspection: normal respiratory effort <OSMAN Yun - Last Filed: 04/09/22 10:19> Auscultation: clear to auscultation bilaterally, no crackles, no rales, no rhonchi and no wheezes <[facility] - Last Filed: 04/09/22 10:19> Cardio Jugular venous distension: no JVD <[facility] Last Filed: 04/09/22 10:19> Rate: regular rate <[facility] Last Filed: 04/09/22 10:19> Rhythm: abnormal rhythm [facility] Last Filed: 04/09/22 10:19> Heart sounds: S1 normal heart sound present, S2 normal heart sound present, no gallops, no murmurs and no rubs <[facility] Last Filed: 04/09/22 10:19> Peripheral pulses: Peripheral pulses 2+ throughout [facility] Last Filed: 04/09/22 10:19> GI Other: soft, mildly distended <[facility] Last Filed: 04/09/22 10:19> Extrem General: Yes normal to inspection, No no pedal edema and No calf tenderness [facility] - Last Filed: 04/09/22 10:19> Psych Appearance: grossly normal <[facility] Last Filed: 04/09/22 10:19> Mental Status: mental status grossly normal [facility] Last Filed: 04/09/22 10:19> Speech and movement: Normal speech and movement present <[facility] Last Filed: 04/09/22 10:19> Objective Labs and Meds Result diagrams: : 04/06/22 09:26 04/09/22 07:04 <[facility] Last Filed: 04/09/22 10:19> Lab results: Laboratory Results - last 24 hr 04/08/22 04/08/22 04/08/22 10:05 10:05 Unknown Sodium 137 Potassium 3.6 Chloride 91 L Carbon Dioxide 35 H Anion Gap 15 BUN 16 Creatinine 0.91 Estim Creat Clear Calc 59.1 Estimated GFR > 60 Random Glucose 111 Calcium 9.1 Magnesium 1.8 B-Natriuretic Peptide 1994 H Urine Color Yellow Urine Appearance Clear Urine pH 8.5 Ur Specific [place] 1.010 Urine Protein Negative Urine Glucose (UA) Negative Urine Ketones Negative Urine Blood Negative Urine Nitrite Negative Ur Leukocyte Esterase Negative 04/09/22 07:04 Sodium 137 Potassium 4.3 Chloride 98 Carbon Dioxide 27 Anion Gap 16 BUN 21 H Creatinine 0.81 Estim Creat Clear Calc 66.4 Estimated GFR > 60 Random Glucose 118 H Calcium 9.7 D Magnesium B-Natriuretic Peptide Urine Color Urine Appearance Urine pH Ur Specific [place] Urine Protein Urine Glucose (UA) Urine Ketones Urine Blood Urine Nitrite Ur Leukocyte Esterase <OSMAN Yun - Last Filed: 04/09/22 10:19> Progress Note: A&P Assessment and plan (1) Atrial fibrillation with rapid ventricular response: Status: Acute <OSMAN Yun - Last Filed: 04/09/22 10:19> Assessment and Plan: Hx of PAF. [place] [facility] [place] sob and palpitations for 1 week. EKG confirmed afib RVR. Bedside echo showed EF 30-35%. Prior echo from 10/2020 showed EF 55-60%. She was treated with heart rate control and started on Eliquis for anticoagulation. She had MIKE 04/07/22 which showed EF 25-30%, ENRIQUETA thrombus. CVR was cancelled. We will continue to treat with heart rate control for now and bring her in as outpt in 3-4 weeks for a CVR. Tele monitor currently shows afib rates 70-80s. Continue on Digoxin and Metoprolol. Continue Eliquis without interruption. She has been informed of ENRIQUETA thrombus, ongoing AF and strict need for med compliance to reduce stroke risk and plan for outpt CVR. She states understanding. She can be discharged from cardiology perspective. We will arrange outpt f/u in 2 weeks to eval compliance and arrange for the CVR. <OSMAN Yun - Last Filed: 04/09/22 10:19> Hx of PAF. Present[place] [facility] [place] sob and palpitations for 1 week. EKG confirmed afib RVR. Bedside echo showed EF 30-35%. Prior echo from 10/2020 showed EF 55-60%. She was treated with heart rate control and started on Eliquis for anticoagulation. She had MIKE 04/07/22 which showed EF 25-30%, ENRIQUETA thrombus. CVR was cancelled. We will continue to treat with heart rate control for now and bring her in as outpt in 3-4 weeks for a CVR. Tele monitor currently shows afib rates 70-80s. Continue on Digoxin and Metoprolol. Continue Eliquis without interruption. She has been informed of ENRIQUETA thrombus, ongoing AF and strict need for med compliance to reduce stroke risk and plan for outpt CVR. She states understanding. She can be discharged from cardiology perspective. We will arrange outpt f/u in 2 weeks to eval compliance and arrange for the CVR. Patient seen and examined. Case discussed with Catalina. Rate is better controlled on metoprolol and digoxin. Continue the same. Continue full oral anticoagulation with Eliquis. Compliance with medications were discussed with her. If remains compliant will set up for follow-up for MIKE guided cardioversion 3 weeks time. Complete cessation of alcohol was discussed. <Josue Milton MD - Last Filed: 04/09/22 10:38> (2) Congestive heart failure: Status: Acute <OSMAN Yun - Last Filed: 04/09/22 10:19> Assessment and Plan: She was treated for acute systolic CHF this admission and diuresed with lasix drip which was stopped yesterday. She was changed over to PO Lasix. Diovan started for afterload reduction and neurohormonal modulation. She does not appear volume overloaded. Labs reviewed, Cr 0.81. Sat 98% on RA. Can be discharged. s/s CHF reviewed with her. Continue on Lasix, Diovan. Please arrange for BMP, BNP, digoxin level in 1 week. <OSMAN Yun - Last Filed: 04/09/22 10:19> She was treated for acute systolic CHF this admission and diuresed with lasix drip which was stopped yesterday. She was changed over to PO Lasix. Diovan started for afterload reduction and neurohormonal modulation. She does not appear volume overloaded. Labs reviewed, Cr 0.81. Sat 98% on RA. Can be discharged. s/s CHF reviewed with her. Continue on Lasix, Diovan. Please arrange for BMP, BNP, digoxin level in 1 week. Patient seen and examined. Heart failure is doing much better. Continue current neurohormonal modulation with metoprolol and valsartan. Will follow-up with lab work in 2 weeks time in the clinic. Continue digoxin as well as current diuretic regimen. Daily weight monitoring and avoidance of salt loading was discussed. Systolic dysfunction either related to tachycardia mediated cardiomyopathy and/or alcohol cardiomyopathy. Complete cessation of alcohol was discussed. Patient can be discharged home and will follow-up as outpatient. <Josue Milton MD - Last Filed: 04/09/22 10:38> (3) Cardiomyopathy: Status: Acute <OSMAN Yun - Last Filed: 04/09/22 10:19> Assessment and Plan: Reduction in EF noted as above. Could be tachycardia mediated cardiomyopathy. Will plan for outpt limited echo in few weeks to reassess. Will need eventual ischemic eval when appropriate. This admit her Lisinopril was stopped and changed to valsartan 20mg bid. BP 106/62 this am. Continue Diovan and Metoprolol for neurohormonal modulation.. <OSMAN Yun - Last Filed: 04/09/22 10:19> (4) Intracardiac thrombosis: Status: Acute <OSMAN Yun - Last Filed: 04/09/22 10:19> Assessment and Plan: As above <OSMAN Yun - Last Filed: 04/09/22 10:19> Time Spent With Patient Time: Total time spent is greater than 50% in coordination of care (as documented) at patient's floor/unit and/or counseling patient: 22 <OSMAN Yun - Last Filed: 04/09/22 10:19> Progress Note: Quality Stroke Does the patient have a stroke diagnosis?: No <OSMAN Yun - Last Filed: 04/09/22 10:19> Procedures Date of Service Date of Service: 04/09/22 <OSMAN Yun - Last Filed: 04/09/22 10:19>
[2022-04-09 11:00] VITALS: O2SAT 97
--- NOTE | 2022-04-09 11:43 | P.F2F_ITS ---
Service Date Service Date: 04/09/22 Encounter Date of encounter: 04/09/22 Encounter: monitoring shortness of breath, irregular heartbeat Reasons for Services Signs and symptoms assessed: as above. Reason for custodial: CV/CP assess and/or care, medication management, medication treatment and teach disease management MD Overseeing Care: Matilde Ni Homebound: Leaving the home is medically contraindicated at this time without the asist of a device and/or another person due th the listed conditions above and below. Reason homebound: weakness related to hospital stay Homebound supporting statement: Patient is generalized weak post hospitalization stay, has multiple comorbidities including new onset of heart failure as well as intracardiac clot- need help with lab draws as well as CHF education as well as appointments. Certification: Based on the above findings, I certify that this patient is confined to the home and needs intermittent custodial care, physical therapy and/or speech therapy, or continues to need occupational therapy. The patient is under my care, and I have initiated the establishment of the plan of care. The patient will be followed by a physician who will periodically review the plan of care.
--- NOTE | 2022-04-09 11:45 | P.DS_ITS ---
DS: Providers Provider Date of Service: 04/09/22 Date of admission: 04/05/22 20:14 Primary care physician: Matilde Ni MD Consults: 04/05/22 20:13 Consult to Cardiology Routine Consulting Provider: Josue Milton Reason for consultation: CHF Has provider been notified: No DS: Diagnosis Discharge Diagnosis (1) Atrial fibrillation with rapid ventricular response: Status: Acute (2) Congestive heart failure: Status: Acute (3) Cardiomyopathy: Status: Acute (4) Intracardiac thrombosis: Status: Acute (5) Hypomagnesemia: Status: Acute (6) Ascites: Status: Acute (7) Coagulopathy: Status: Acute DS: Summary Hospital Course Hospital Course: 51-year-old female with past medical history of CVA, NSTEMI, paroxysmal AFib, PTSD, HLD, depression anxiety, alcoholism and warthin's tumor presents the hospital with complaints of shortness of breath.? Patient reports that her symptoms started 7 days ago, associated with cough, no sputum production.? She has significant abdominal distension, no lower extremity edema.? She reports orthopnea and PND.? She has also had significant amount of diarrhea for the past 7 days.? She has had 3-4 episodes of diarrhea daily.? She states that have abdomen is pretty hard, and slightly tender in the periumbilical region.? She denies having any fevers or chills.? She is stating that she is very anxious, wants something to calm her down and put her to sleep.? She has no chest pain, no palpitations, denies any urinary symptoms. On arrival to the ED patient found to have a temperature of 96.4 degrees, heart rate of 131, respiratory rate of 22, blood pressure 96/78 Patient was in AFib with RVR Labs are significant for WBC count of 7.7, hemoglobin of 13.4, hematocrit 41.6, INR of 2.6, venous blood pH of 7.45, potassium 4.8, lactic acid of 2.8, total bili of 1.5, troponin of 91, BNP of 2823, c.diff negative procalcitonin 0.14 Chest xray shows right lung interstitial infiltrate which may reflect edema or pneumonia Abdominal pelvic CT shows small to moderate volume ascites, small to moderate size right and small left pleural effusions, no evidence of bowel obstruction or other acute intra-abdominal process.? Diverticulosis with no diverticulitis. Hopsital course: Patient was admitted for AFib with RVR as well as acute CHF exacerbation with reduced ejection fraction, alcohol abuse, ascites: patient was started on cardizemdrip , continued Eliquis: heart rate seems to be improved significantly. In addition patient was found to have EF of 20-30% on echo and also intracardiac thrombus( please see echo below)- patient's medication for heart failure adjusted- patient will go home on Eliquis, Diovan, Lasix. Hypomagnesemia: Repleted and resolved, limited supply P.o. magnesium given upon discharge. please repeat labs out patiently if needed further magnesium can be arranged outpatient as per PCP. CHF education given, also patient was strongly advised to compliant with her Eliquis- cardiology may plan outpatient cardioversion if needed, Cardiology will arrange their own appointment. ascites also improved significantly with CHF management: but considering mild elevation is by in bilirubin, also alcohol use as well as mild elevation of AST ALT in the past- patient was strongly advised to quit alcohol, in addition was advised to get outpatient GI evaluation with PCP. CHF education given in detail. Monitor CBC, CMP, magnesium and digoxin level out patiently in 1 week with PCP . Above management discussed with the patient and patient relative in the room in detail length. Time Spent with Patient Time attestation: Total time spent providing and/or coordinating discharge services: Discharge coordination time: Greater than 30 minutes Quality: Safe Use of Opioids Does Pt have an Active Cancer Diagnosis on the Problem List?: No Quality: Stroke Does the patient have a stroke diagnosis?: No Physical Exam Vital Signs: Vital Signs: Last Vital Signs Temp 97.8 F 04/09/22 07:15 Pulse 82 04/09/22 07:15 Resp 16 04/09/22 07:15 BP 106/62 04/09/22 07:15 Pulse Ox 97 04/09/22 11:00 O2 Del Method 04/09/22 11:00 O2 Flow Rate 4 04/07/22 14:00 BMI result Body Mass Index 20.9 Appearance: Alert.? Oriented X3.? not in distress.? cvs: rrr, [id number] . res: clear to auscultation ,no rhonchii or wheezing abd: no rebound or guarding ,nt, bs present,moderate acitis. ext pulses present , no cyanosis . neuro: axo3 , nonfocal. DS: Data Data Completed and Pending Labs on day of discharge: Laboratory Results - last 24 hr 04/08/22 04/09/22 Unknown 07:04 Sodium 137 Potassium 4.3 Chloride 98 Carbon Dioxide 27 Anion Gap 16 BUN 21 H Creatinine 0.81 Estim Creat Clear Calc 66.4 Estimated GFR > 60 Random Glucose 118 H Calcium 9.7 D Urine Color Yellow Urine Appearance Clear Urine pH 8.5 Ur Specific [place] 1.010 Urine Protein Negative Urine Glucose (UA) Negative Urine Ketones Negative Urine Blood Negative Urine Nitrite Negative Ur Leukocyte Esterase Negative Preliminary micro results at discharge 04/05/22 15:35 Blood Culture - Preliminary Blood - Venous No growth after 48 hours. 04/05/22 15:50 Blood Culture - Preliminary Blood - Venous No growth after 48 hours. Imaging Chest x-ray: Radiologist's impression: ITS Impressions Chest X-Ray 04/05/22 16:22 IMPRESSION: Right lung interstitial infiltrate may reflect edema or pneumonia. Right subpulmonic effusion. Abdomen/Pelvis CT 04/05/22 16:31 IMPRESSION: 1. Small to moderate volume ascites. 2. Small to moderate-sized right and small left pleural effusions. 3. No evidence of bowel obstruction or other acute intra-abdominal process. 4. Sigmoid diverticulosis. No evidence of acute diverticulitis. Additional Comments Additional comments: echo:Conclusion: ??? 1. Dilated left ventricle with severely reduced LV ejection? ? fraction of 25-30% ? 2. Reduced RV systolic function? 3. Biatrial enlargement, left greater than right ? 4. Mild mitral regurgitation ? 5. Mobile thrombus noted in the left atrial appendage? 6. Mild mitral regurgitation moderate tricuspid regurgitation? ? 7. No intracardiac vegetations or masses ? 8. Severe atherosclerotic changes noted in descending thoracic ? aorta? ?? Discharge Plan Discharge Anticipated Discharge Date/Time: 04/09/22 11:22 Patient Disposition: Home Health Service Discharge Diagnosis: chf excerebation, intracardiac thrombus ,alcohol use Referrals: Matilde Ni MD [Primary Care Provider] - 1 Week Discharge Medications: New furosemide 40 mg Tablet 40 mg PO BID@0900,1800 Qty: 60 0RF Protocol: Hold for SBP< HOLD for SBP < : 90 magnesium oxide 400 mg (241.3 mg magnesium) Tablet 800 mg PO DAILY Qty: 20 0RF docusate sodium 100 mg Capsule 100 mg PO DAILY PRN (Reason: Constipation) Qty: 30 0RF digoxin 125 mcg (0.125 mg) Tablet 0.125 mg PO DAILY Qty: 30 0RF valsartan 40 mg Tablet 20 mg PO BID Qty: 60 0RF Protocol: Hold for SBP< HOLD for SBP < : 90 metoprolol tartrate 25 mg Tablet 25 mg PO BID Qty: 60 0RF Protocol: Hold for SBP/HR < HOLD for SBP < : 90 HOLD for HR < : 60 thiamine mononitrate (vit B1) 100 mg Tablet 100 mg PO DAILY Qty: 30 0RF Continued folic acid 1 mg tablet 1 tab PO DAILY fluoxetine 20 mg capsule 1 cap PO DAILY Eliquis 5 mg tablet 1 tab PO BID cholecalciferol (vitamin D3) 25 mcg (1,000 unit) Tablet 25 mcg PO DAILY Discontinued lisinopril 5 mg tablet 1 tab PO DAILY diltiazem HCl 30 mg tablet 1 tab PO DAILY Discharge Orders: Discharge Order (Routine); Ordered 04/09/22 Ordered By: Wojciech Max Diet: Advance to usual diet Activity on Discharge: As tolerated Stand Alone Forms: Patient Portal Discharge page Care Plan Goals: Patient was admitted for AFib with RVR as well as acute CHF exacerbation with re duced ejection fraction, alcohol abuse, ascites: patient was started on rate control medication, continued blood thinner Eliquis: heart rate seems to be improved significantly. In addition patient was found to have EF of 20-30% on echo and also heart blood clot- patient's medication for heart failure adjusted- patient will go home on Eliquis, [place] Lasix. CHF education given, also patient was strongly advised to compliant with her Eliquis- cardiology may plan outpatient cardioversion if needed, Cardiology will arrange their own appointment. ascites also improved significantly with CHF management: but considering mild elevation is by in bilirubin, also alcohol use as well as mild elevation of AST ALT in the past- patient was strongly advised to quit alcohol, in addition was advised to get outpatient GI evaluation with PCP. CHF education given in detail. Monitor CBC, CMP, magnesium and digoxin level out patiently in 1 week with PCP . Above management discussed with the patient and patient relative in the room in detail length. Health Concerns: as above . Plan of Treatment: as above. Assessment: as above. Patient Instructions: Heart Failure (DC), Ascites (DC)
--- NOTE | 2022-04-09 12:33 | MHC.CM.PN ---
DP:PT MEDICALLY CLEARED FOR DC HOME, RESUME [facility] WITH [facility]. [facility] UPDATED ON DC, RN AWARE. FAMILY WILL TRANSPORT
== END 2022-04-09 12:31 | disposition home health service (06) | DRG 194 ==
LOC: HO.ED 16:58 → HO.EDOVER 20:26 → HO.IMC 21:07
PROVIDERS: Emergency Medicine; Internal Medicine Cardiovascular Disease; Admitting Provider Internal Medicine; Emergency Provider Internal Medicine; PCP General Practice; Visit Provider Internal Medicine
PROC: B246ZZ4 Ultrasonography of Right and Left Heart, Transesophageal (ICD-10-PCS; CPT 93312; principal; 2022-04-07 11:00)
DX: I11.0 Hypertensive heart disease with heart failure (principal); E87.20 Acidosis, unspecified; I42.8 Other cardiomyopathies; Z79.01 Long term (current) use of anticoagulants; I50.23 Acute on chronic systolic (congestive) heart failure; E78.2 Mixed hyperlipidemia; I48.91 Unspecified atrial fibrillation; F43.10 Post-traumatic stress disorder, unspecified; F17.210 Nicotine dependence, cigarettes, uncomplicated; F10.10 Alcohol abuse, uncomplicated; F41.9 Anxiety disorder, unspecified; R79.1 Abnormal coagulation profile; I51.3 Intracardiac thrombosis, not elsewhere classified; G47.00 Insomnia, unspecified; Z71.6 Tobacco abuse counseling; Z20.822 Contact with and (suspected) exposure to COVID-19; I25.2 Old myocardial infarction; Z85.43 Personal history of malignant neoplasm of ovary; Z86.73 Personal history of transient ischemic attack (TIA), and cerebral infarction without residual deficits; Z88.5 Allergy status to narcotic agent; Z79.899 Other long term (current) drug therapy
CPT/HCPCS: 0241U; 36415; 71045; 74176; 80048; 80076; 81003; 82803; 83605; 83735; 83880; 84145; 84484; 85025; 85379; 85610; 87040; 87493; 87635; 93005; 93306; 94640; 99285; J0696; J1160; J1940; J2250; J3010; J3475; Q9957

== ENCOUNTER → 2024-01-31 10:08 | Outpatient (RCR) | payer MEDICAID, SELFPAY ==
[2020-11-18 09:51] VITALS: BP 141/66; PULSE 56; RESP 14; TEMP 36.7; O2SAT 98; BMI 23.3
--- NOTE | 2020-11-18 10:09 | P.PNHO_ITS ---
Medical Summary - Medical Summary Date of Service: 11/18/20 Chief complaint: Follow up for left parotid tumor. Medical Summary: DIAGNOSIS: LEFT PAROTID MASS. Interval History Interval history: This is a pleasant 50-year-old lady, here for a follow-up visit. She was initially seen in house when she presented on 10/29 with a chief complaint of brief unresponsive episode. Patient is a poor historian, follows simple commands, was moving all extremities equally. Patient passed dysphagia screen; She was able to stand up and go to the bathroom. She was able to understand simple commands. She has these episodes of not talking which usually last for some time. Her mother mentioned that patient likely has been using IV drugs, but unsure which drug she is using. She was noted to be sleepy. Patient's mom did not report any chest pain lightheadedness dizziness focal weakness. ER course: Patient did not talk well and less cooperative exam; EMS gave her Narcan. She was briefly answering yes or no to most of the questions. U tox positive for cocaine. CT head showed right cerebellar evaluating infarct. Patient was given aspirin. She was incidentally noted to have a left parotid mass. 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 This lesion has increased in size compared to 2019. She tells me she has been feeling reasonably well, since she got out of the hospital. She noted the lump about a year ago. it has not been painful. ROS: She denies easy fatigability. No fever nor chills. Appetite is good. Weight is stable. She denies any headache no dizziness. She has felt a lump behind the left ear for about a year or so. No chest pain or trouble breathing. She has a chronic nonproductive cough. She denies abdominal pain nausea vomiting heartburn indigestion. Bowels are working without any gross blood in it. Denies dysuria or hematuria. No joint pains nor muscle aches. Denies rashes nor pruritus. Family history: Mom has diabetes. No heme Onc problems in the family. Social history: He used to work as a assistant secretary. She has not worked in several years. She is not . She has no children. She smokes half a pack a day. she drinks on the weekends. She smokes marijuana. Review of Systems - Constitutional Reports no additional constitutional complaints, Denies increased appetite, Denies lack of energy, Denies malaise, Denies poor appetite, Denies weight loss - Eyes Reports no additional eye complaints, Denies change in vision - ENT Reports no additional ear, nose, mouth, and throat complaints, Denies bleeding gums - Cardiovascular Reports no additional cardiovascular complaints, Denies chest pain, Denies leg swelling, Denies lightheadedness - Respiratory Reports no additional respiratory complaints, Reports cough - Gastrointestinal Reports no additional gastrointestinal complaints, Denies bloating, Denies diarrhea - Genitourinary Reports no additional female genitourinary complaints - Musculoskeletal Reports no additional musculoskeletal complaints, Denies joint pain - Integumentary/Breasts Skin/Breast: Reports no additional skin complaints, Denies breast pain - Neurologic Reports no additional neurologic complaints - Psychiatric Reports no additional psychiatric complaints, Denies anxiety - Endocrine Reports no additional endocrine complaints, Denies deepening of the voice - Hematologic/Lymphatic Reports no additional hematologic/lymphatic complaints - Allergic/Immunologic Reports no additional allergic/immunologic complaints [facility] Medical History: Medical History (Last Reviewed 10/31/20 @ 10:34 by DARIO Askew) Alcoholism Cocaine dependence CVA (cerebral vascular accident) Depression Disorder of bone and articular cartilage Hx of ovarian cancer Insomnia Mixed hyperlipidemia Nasal congestion Osteopenia PAF (paroxysmal atrial fibrillation) PTSD (post-traumatic stress disorder) Tobacco abuse Functional capacity: independent ambulation Patient : No Family History: Family History (Last Updated 11/18/20 @ 09:56 by Yajaira Hills) Maternal Grandmother Breast cancer Mother DVT (deep venous thrombosis) Diabetes Surgical History: Surgical History (Last Updated 11/18/20 @ 09:54 by Yajaira Hills) Hx of hysterectomy Social History: Social History (Last Updated 11/18/20 @ 09:56 by Yajaira Hills) Living Situation History: Household Members: Unknown / Unable to asses Housing: Unknown / Unable to asses Do you presently have visiting nurse or other home services: Do you presently have visiting nurse or other home services comment: pt not responding to questions at this time Alcohol History: Alcohol intake: current Alcohol History Details: Alcohol intake frequency: a few times a week Tobacco History: Patient Tobacco Use Status: Current everyday Tobacco Cigarette Packs Per Day: 0.5 Substance Use History: Use of substances other than those prescribed or required for medical reasons : Yes Substance Use Type: Crack/Cocaine Substance Use Type: Heroin Substance Use Type: Marijuana Nutrition Assessment: Patient : No Occupation Assessmet: service: No Current occupational status: unemployed Oncology Screenings - ECOG Performance Status ECOG Performance Status: 0 Home Medications and Allergies Home Medications Medication Instructions Recorded Confirmed Type atorvastatin 1 tab PO DAILY 10/29/20 11/18/20 History diltiazem HCl 1 tab PO DAILY 10/29/20 11/18/20 History fluoxetine 1 cap PO DAILY 10/29/20 11/18/20 History folic acid 1 tab PO DAILY 10/29/20 11/18/20 History lisinopril 1 tab PO DAILY 10/29/20 11/18/20 History quetiapine 1.5 tab PO BEDTIME 10/29/20 11/18/20 History risperidone 1 tab PO DAILY 10/29/20 11/18/20 History trazodone 1.5 - 2 tab PO BEDTIME 10/29/20 11/18/20 History ergocalciferol (vitamin D2) 1 cap PO QWEEK 11/18/20 11/18/20 History Allergies Allergy/AdvReac Type Severity Reaction Status Date / Time No Known Allergies Allergy Unverified 02/07/20 15:04 [No Known Allergies*] Exam Vital signs: Vital Signs Temp 98.0 F 11/18/20 09:51 Pulse 56 11/18/20 09:51 Resp 14 11/18/20 09:51 BP 141/66 H 11/18/20 09:51 Pulse Ox 98 11/18/20 09:51 Intake & Output 11/17/20 11/18/20 11/18/20 18:59 06:59 18:59 Other: Weight 59.7 kg Weight in Grams [id number] Weight 59.7 kg Body Mass Index 23.3 - Constitutional Present: no acute distress - Routine HEENT Exam Head: Present: normal inspection Eye: Present: normal appearance ENT: Present: mucous membranes moist Comments: Firm mass left parotid gland. - Routine Neck Exam Present: full ROM - Routine Respiratory Exam Present: CTAB - Routine Cardiovascular Exam Cardiovascular: Present: RRR, S1, S2 - Routine Abdominal Exam Present: soft, nontender - Routine Rectal Exam Patient deferred: digital exam - Routine Extremities Exam Present: nontender - Routine Back/Spine/Pelvis Exam Back/Spine: Present: full ROM - Routine Skin Exam Present: intact - Routine Neurological Exam Present: alert, oriented X3 - Routine Psychiatric Exam Present: normal affect Data - Labs CBC & Chem 7: 11/18/20 11:18 11/18/20 11:18 Progress Note: A/P (1) Parotid mass Status: Acute Assessment and plan: DATABASE: CAL9.8, Alb 4.5. LFTs: 0.4/118/12/13. LDH 140. This is a pleasant 50-year-old lady, with a history of IV drug abuse. She presented to the hospital on 10/29 with mental status changes. Was noted to have multiple brain infarcts. She was incidentally noted was a left parotid mass. That has grown over time. That does appear to be rather suspicious appearing. 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 I reviewed the imaging with the radiologist. He felt the biopsy was feasible. However the patient signed out AMA. She is now here for a follow-up visit. PLAN: I will set up the biopsy, under CT scan guidance. She will need to be off the aspirin. Will make further recommendations based upon the results. Thank you, CC: Salome. - Time Spent With Patient 15 - 24 minutes
[2020-11-18 11:28] LABS: MANUAL DIFF FLAG NO
[2020-11-18 11:36] LABS: Basophils Percent Auto 0.4 % (0-2); Eosinophils Absolute Auto 0.4 X10*3/uL (0.0-0.4); Eosinophils Percent Auto 3.6 % (0-4); Hematocrit 38.9 % (37-47); Hemoglobin 12.4 g/dl (12.0-16.0); Imm Gran Abs Auto 0.03 X10*3/uL (0.00-0.03); Imm Gran Pct Auto 0.3 % (0.0-0.4); Lymphocytes Absolute Auto 3.1 X10*3/uL (1.2-4.9); Lymphocytes Percent Auto 29.8 % (20-40); Mean Corpuscular HGB Conc 31.9 g/dl (31.0-35.0); Mean Corpuscular Hemoglobin 29.6 pg (27.0-33.0); Mean Corpuscular Volume 92.8 fL (80-98); Mean Platelet Volume 10.4 fL (9.4-12.3); Monocytes Absolute Auto 0.5 X10*3/uL (0.1-1.2); Neutrophils Absolute Auto 6.4 X10*3/uL (2.0-8.3); Neutrophils Percent Auto 60.9 % (45-73); Platelet Count 297 X10*3/uL (160-400); Red Blood Count 4.19 X10*6/uL (4.20-5.50); Red Cell Distribution Width 14.2 % (11.0-16.0); White Blood Count 10.5 X10*3/uL (4.8-10.8)
[2020-11-18 12:21] LABS: Alanine Aminotransferase 13 U/L (0-31); Albumin Level 4.5 g/dL (3.5-5.0); Alkaline Phosphatase 118 U/L (39-117); Anion Gap 13 (12-20); Aspartate Amino Transferase 12 U/L (5-31); Bilirubin Total 0.4 mg/dL (0.0-1.0); Blood Urea Nitrogen 20 mg/dL (9-16); Calcium 9.8 mg/dL (8.4-10.2); Carbon Dioxide 24 mmol/L (22-29); Chloride 108 mmol/L (96-108); Creatinine Clr Calc Pharmacy 62.6; Estimated Glomerular Filt Rate > 60; Glucose Random 104 mg/dL (60-115); Lactate Dehydrogenase 140 U/L (122-220); Potassium 5.2 mmol/L (3.3-5.1); Sodium 140 mmol/L (135-145); Total Protein 7.2 g/dL (6.5-8.0)
--- NOTE | 2020-11-18 14:11 | MHC.HEMONCMA ---
Patient came in for a consult, states that she is doing well. Clinical summary was reviewed and updated. Patient had labs and will return in 1 month for a follow up. Patient is being scheduled for a biopsy. Will call the patient with the information once scheduled.
[2020-12-11 11:57] VITALS: BP 117/89; PULSE 100; RESP 24; TEMP 36.2; O2SAT 98; BMI 20.9
--- NOTE | 2020-12-11 12:09 | P.PNHO_ITS ---
Medical Summary - Medical Summary Date of Service: 12/11/20 Chief complaint: Left parotid mass. Medical Summary: DIAGNOSIS: LEFT PAROTID MASS. Interval History Interval history: This is a pleasant 50-year-old lady, here for a follow-up visit. She noted the lump about a year ago. it has not been painful. She denies easy fatigability. No fever nor chills. Appetite is good. Weight is stable. She denies any headache no dizziness. She has felt a lump behind the left ear for about a year or so. No chest pain or trouble breathing. She has a chronic nonproductive cough. She denies abdominal pain nausea vomiting heartburn indigestion. Bowels are working without any gross blood in it. Denies dysuria or hematuria. No joint pains nor muscle aches. Denies rashes nor pruritus. Previous history: She was initially seen in house when she presented on 10/29 with a chief complaint of brief unresponsive episode. Patient is a poor historian, follows simple commands, was moving all extremities equally. Patient passed dysphagia screen; She was able to stand up and go to the bathroom. She was able to understand simple commands. She has these episodes of not talking which usually last for some time. Her mother mentioned that patient likely has been using IV drugs, but unsure which drug she is using. She was noted to be sleepy. Patient's mom did not report any chest pain lightheadedness dizziness focal weakness. ER course: Patient did not talk well and less cooperative exam; EMS gave her Narcan. She was briefly answering yes or no to most of the questions. U tox positive for cocaine. CT head showed right cerebellar evaluating infarct. Patient was given aspirin. She was incidentally noted to have a left parotid mass. 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 This lesion has increased in size compared to 2019. Family history: Mom has diabetes. No heme Onc problems in the family. Social history: He used to work as a typing secretary. She has not worked in several years. She is not . She has no children. She smokes half a pack a day. she drinks on the weekends. She smokes marijuana. Review of Systems - Constitutional Reports system reviewed and no additional complaints, except as documented, Reports lack of energy - Eyes Reports system reviewed and no additional complaints, except as documented, Denies blurry vision - ENT Reports system reviewed and no additional complaints, except as documented - Cardiovascular Reports system reviewed and no additional complaints, except as documented, D enies chest pain at rest - Respiratory Reports no additional respiratory complaints, Denies chest congestion - Gastrointestinal Reports system reviewed and no additional complaints, except as documented, Denies abdominal pain, Denies belching, Denies change in bowel habits - Genitourinary Reports no additional female genitourinary complaints - Musculoskeletal Reports system reviewed and no additional complaints, except as documented, Denies loss of height - Integumentary/Breasts Skin/Breast: Reports no additional skin complaints - Neurologic Reports system reviewed and no additional complaints, except as documented, Denies abnormal gait - Psychiatric Reports system reviewed and no additional complaints, except as documented - Endocrine Reports no additional endocrine complaints - Hematologic/Lymphatic Reports system reviewed and no additional complaints, except as documented - Allergic/Immunologic Reports system reviewed and no additional complaints, except as documented COUNTS INCLUDE 234 BEDS AT THE [facility] Medical History: Medical History (Last Reviewed 12/11/20 @ 12:02 by Shaan Castellanos) Alcoholism Cocaine dependence CVA (cerebral vascular accident) Depression Disorder of bone and articular cartilage Hx of ovarian cancer Insomnia Mixed hyperlipidemia Nasal congestion Osteopenia PAF (paroxysmal atrial fibrillation) PTSD (post-traumatic stress disorder) Tobacco abuse Functional capacity: independent ambulation Patient : No Family History: Family History (Last Reviewed 12/11/20 @ 12:03 by Shaan Castellanos) Maternal Grandmother Breast cancer Mother DVT (deep venous thrombosis) Diabetes Surgical History: Surgical History (Last Reviewed 12/11/20 @ 12:02 by Shaan Castellanos) Hx of hysterectomy Social History: Social History (Last Reviewed 12/11/20 @ 12:03 by Shaan Castellanos) Living Situation History: Household Members: Unknown / Unable to asses Housing: Unknown / Unable to asses Do you presently have visiting nurse or other home services: Do you presently have visiting nurse or other home services comment: pt not responding to questions at this time Alcohol History: Alcohol intake: never Alcohol History Details: Alcohol intake frequency: a few times a week Tobacco History: Patient Tobacco Use Status: Current everyday Tobacco Cigarette Packs Per Day: 0.5 Substance Use History: Substance Use Type: Heroin Occupation Assessmet: service: No Current occupational status: unemployed Oncology Screenings - ECOG Performance Status ECOG Performance Status: 0 Home Medications and Allergies Home Medications Medication Instructions Recorded Confirmed Type atorvastatin 1 tab PO DAILY 10/29/20 12/11/20 History diltiazem HCl 1 tab PO DAILY 10/29/20 12/11/20 History fluoxetine 1 cap PO DAILY 10/29/20 12/11/20 History folic acid 1 tab PO DAILY 10/29/20 12/11/20 History lisinopril 1 tab PO DAILY 10/29/20 12/11/20 History quetiapine 1.5 tab PO BEDTIME 10/29/20 12/11/20 History risperidone 1 tab PO DAILY 10/29/20 12/11/20 History trazodone 1.5 - 2 tab PO BEDTIME 10/29/20 12/11/20 History ergocalciferol (vitamin D2) 1 cap PO QWEEK 11/18/20 12/11/20 History Allergies Allergy/AdvReac Type Severity Reaction Status Date / Time codeine Allergy Nausea and Verified 12/11/20 12:04 Vomiting Exam Vital signs: Vital Signs Temp 97.2 F 12/11/20 11:57 Pulse 100 12/11/20 11:57 Resp 24 H 12/11/20 11:57 BP 117/89 12/11/20 11:57 Pulse Ox 98 12/11/20 11:57 Intake & Output 12/10/20 12/11/20 12/11/20 18:59 06:59 18:59 Other: Weight 53.7 kg Weight in Grams 78914 Weight 53.7 kg Body Mass Index 20.9 - Constitutional Present: no acute distress - Routine HEENT Exam Head: Present: normal inspection Eye: Present: normal appearance ENT: Present: mucous membranes moist - Routine Neck Exam Present: full ROM - Routine Respiratory Exam Present: CTAB - Routine Cardiovascular Exam Cardiovascular: Present: RRR, S1, S2 - Routine Abdominal Exam Present: soft, nontender - Routine Rectal Exam Patient deferred: digital exam - Routine Extremities Exam Present: nontender - Routine Back/Spine/Pelvis Exam Back/Spine: Present: full ROM - Routine Skin Exam Present: intact - Routine Neurological Exam Present: alert, oriented X3 - Routine Psychiatric Exam Present: normal affect Data - Labs CBC & Chem 7: 11/18/20 11:18 11/18/20 11:18 Labs: 11/18/20 11:18 Complete Blood Count Auto Diff Routine Comprehensive Met. Panel Routine LDH [Lactate Dehydrogenase] Routine Laboratory Last Values WBC 10.5 X10*3/uL (4.8-10.8) 11/18/20 11:18 RBC 4.19 X10*6/uL (4.20-5.50) L 11/18/20 11:18 Hgb 12.4 g/dl (12.0-16.0) 11/18/20 11:18 Hct 38.9 % (37-47) 11/18/20 11:18 MCV 92.8 fL (80-98) 11/18/20 11:18 MCH 29.6 pg (27.0-33.0) 11/18/20 11:18 MCHC 31.9 g/dl (31.0-35.0) 11/18/20 11:18 RDW 14.2 % (11.0-16.0) 11/18/20 11:18 Plt Count 297 X10*3/uL (160-400) 11/18/20 11:18 MPV 10.4 fL (9.4-12.3) 11/18/20 11:18 Immature Gran % (Auto) 0.3 % (0.0-0.4) 11/18/20 11:18 Neut % (Auto) 60.9 % (45-73) 11/18/20 11:18 Lymph % (Auto) 29.8 % (20-40) 11/18/20 11:18 [place] % (Auto) 5.0 % (2-11) 11/18/20 11:18 Eos % (Auto) 3.6 % (0-4) 11/18/20 11:18 Baso % (Auto) 0.4 % (0-2) 11/18/20 11:18 Lymph # (Auto) 3.1 X10*3/uL (1.2-4.9) 11/18/20 11:18 [place] # (Auto) 0.5 X10*3/uL (0.1-1.2) 11/18/20 11:18 Eos # (Auto) 0.4 X10*3/uL (0.0-0.4) 11/18/20 11:18 Baso # (Auto) 0.0 X10*3/uL (0.0-0.2) 11/18/20 11:18 Abs Immat Gran (auto) 0.03 X10*3/uL (0.00-0.03) 11/18/20 11:18 Absolute Neuts (auto) 6.4 X10*3/uL (2.0-8.3) 11/18/20 11:18 Absolute Nucleated RBC 0.000 X10*3/uL (0.0-0.012) 11/18/20 11:18 Nucleated RBC % (auto) 0.0 /100WBC (0.0-0.2) 11/18/20 11:18 Sodium 140 mmol/L (135-145) 11/18/20 11:18 Potassium 5.2 mmol/L (3.3-5.1) H D 11/18/20 11:18 Chloride 108 mmol/L (96-108) 11/18/20 11:18 Carbon Dioxide 24 mmol/L (22-29) 11/18/20 11:18 Anion Gap 13 (12-20) 11/18/20 11:18 BUN 20 mg/dL (9-16) H D 11/18/20 11:18 Creatinine 0.87 mg/dL (0.5-1.4) 11/18/20 11:18 Estim Creat Clear Calc 62.6 11/18/20 11:18 Estimated GFR > 60 11/18/20 11:18 Random Glucose 104 mg/dL (60-115) 11/18/20 11:18 Calcium 9.8 mg/dL (8.4-10.2) D 11/18/20 11:18 Total Bilirubin 0.4 mg/dL (0.0-1.0) 11/18/20 11:18 AST 12 U/L (5-31) D 11/18/20 11:18 ALT 13 U/L (0-31) 11/18/20 11:18 Alkaline Phosphatase 118 U/L (39-117) H D 11/18/20 11:18 Lactate Dehydrogenase 140 U/L (122-220) 11/18/20 11:18 Total Protein 7.2 g/dL (6.5-8.0) 11/18/20 11:18 Albumin 4.5 g/dL (3.5-5.0) 11/18/20 11:18 Progress Note: A/P (1) Parotid mass Status: Acute Assessment and plan: DATABASE: CAL9.8, Alb 4.5. LFTs: 0.4/118/12/13. LDH 140. This is a pleasant 50-year-old lady, with a history of IV drug abuse. She presented to the hospital on 10/29 with mental status changes. Was noted to have multiple brain infarcts. She was incidentally noted was a left parotid mass. That has grown over time. That does appear to be rather suspicious appearing. 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 I reviewed the imaging with the radiologist. He felt the biopsy was feasible. However the patient signed out AMA. She is now here for a follow-up visit. She came a couple of weeks ago. Unfortunately the biopsy has not been scheduled. PLAN: I will set up the biopsy, under CT scan guidance. It is now scheduled for next . She will need to be off the aspirin. Will make further recommendations based upon the results. Thank you, CC: Salome. - Time Spent With Patient Time Spent with Patient (in minutes): 25
--- NOTE | 2020-12-11 12:26 | MHC.HEMONC ---
Appointment scheduled for CT biopsy muscle on 12/17/20 at 0900. Pt instructed to arrive at 0845, nothing to eat or drink for 4 hours prior to test and no ASA products 5 days prior to test. Verbalizes understanding of info given.
--- NOTE | 2020-12-11 13:01 | MHC.HEMONC ---
Pt comes in for ONC f/u with Dr. Rob. Pt states she is doing fine and did not have labs drawn. clinical summary was updated and she will be seen in 2 [facility] for f/u appointment. also, has biopsy scheduled for 12/17/2020 at 9am pt to arrive at 8:45am in ultrasound. pt to be NPO x4 hours and avoid aspirin or blood thinning agents for 5 days. Pt verbalizes understanding.
[2020-12-29 13:13] VITALS: BP 138/58; PULSE 48; RESP 14; TEMP 37.1; O2SAT 98; BMI 21.8
--- NOTE | 2020-12-29 13:20 | P.PNHO_ITS ---
Medical Summary - Medical Summary Date of Service: 12/29/20 Chief complaint: Follow-up for: Parotid mass. Medical Summary: DIAGNOSIS: LEFT PAROTID MASS. Interval History Interval history: This is a pleasant 50-year-old lady, here for a follow-up visit. She noted the lump in the left parotid area, about a year ago. It was not painful. She had the biopsy done. She is here to review the results. She denies easy fatigability. No fever nor chills. Appetite is good. Weight is stable. She denies any headache no dizziness. No chest pain or trouble breathing. She has a chronic nonproductive cough. She denies abdominal pain nausea vomiting heartburn indigestion. Bowels are working without any gross blood in it. Denies dysuria or hematuria. No joint pains nor muscle aches. Denies rashes nor pruritus. Previous history: She was initially seen in house when she presented on 10/29 with a chief complaint of brief unresponsive episode. Patient is a poor historian, follows simple commands, was moving all extremities equally. Patient passed dysphagia screen; She was able to stand up and go to the bathroom. She was able to understand simple commands. She has these episodes of not talking which usually last for some time. Her mother mentioned that patient likely has been using IV drugs, but unsure which drug she is using. She was noted to be sleepy. Patient's mom did not report any chest pain lightheadedness dizziness focal weakness. ER course: Patient did not talk well and less cooperative exam; EMS gave her Narcan. She was briefly answering yes or no to most of the questions. U tox positive for cocaine. CT head showed right cerebellar evaluating infarct. Patient was given aspirin. She was incidentally noted to have a left parotid mass. 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 This lesion has increased in size compared to 2019. Family history: Mom has diabetes. No heme Onc problems in the family. Social history: He used to work as a physician office secretary. She has not worked in several years. She is not . She has no children. She smokes half a pack a day. she drinks on the weekends. She smokes marijuana. Review of Systems - Constitutional Reports system reviewed and no additional complaints, except as documented - Eyes Reports system reviewed and no additional complaints, except as documented - ENT Reports system reviewed and no additional complaints, except as documented - Cardiovascular Reports system reviewed and no additional complaints, except as documented - Respiratory Reports no additional respiratory complaints - Gastrointestinal Reports system reviewed and no additional complaints, except as documented - Genitourinary Reports no additional female genitourinary complaints - Musculoskeletal Reports system reviewed and no additional complaints, except as documented - Integumentary/Breasts Skin/Breast: Reports no additional skin complaints - Neurologic Reports system reviewed and no additional complaints, except as documented, Denies abnormal gait - Psychiatric Reports system reviewed and no additional complaints, except as documented - Endocrine Reports no additional endocrine complaints - Hematologic/Lymphatic Reports system reviewed and no additional complaints, except as documented - Allergic/Immunologic Reports system reviewed and no additional complaints, except as documented PMFSH Medical History: Medical History (Last Reviewed 12/29/20 @ 13:15 by Yajaira Hills) Alcoholism Cocaine dependence CVA (cerebral vascular accident) Depression Disorder of bone and articular cartilage Hx of ovarian cancer Insomnia Mixed hyperlipidemia Nasal congestion Osteopenia PAF (paroxysmal atrial fibrillation) PTSD (post-traumatic stress disorder) Tobacco abuse Functional capacity: independent ambulation Patient : No Family History: Family History (Last Reviewed 12/29/20 @ 13:15 by Yajaira Hills) Maternal Grandmother Breast cancer Mother DVT (deep venous thrombosis) Diabetes Surgical History: Surgical History (Last Reviewed 12/29/20 @ 13:15 by Yajaira Hlils) Hx of hysterectomy Social History: Social History (Last Reviewed 12/29/20 @ 13:15 by Yajaira Hills) Living Situation History: Household Members: Unknown / Unable to asses Housing: Unknown / Unable to asses Do you presently have visiting nurse or other home services: Do you presently have visiting nurse or other home services comment: pt not responding to questions at this time Alcohol History: Alcohol intake: never Alcohol History Details: Alcohol intake frequency: a few times a week Tobacco History: Patient Tobacco Use Status: Current everyday Tobacco Cigarette Packs Per Day: 0.5 Substance Use History: Use of substances other than those prescribed or required for medical reasons : Yes Substance Use Type: Heroin Nutrition Assessment: Patient : No Occupation Assessmet: service: No Current occupational status: unemployed Oncology Screenings - ECOG Performance Status ECOG Performance Status: 0 Home Medications and Allergies Home Medications Medication Instructions Recorded Confirmed Type atorvastatin 10 mg tablet 1 tab PO DAILY 10/29/20 12/29/20 History diltiazem HCl 30 mg tablet 1 tab PO DAILY 10/29/20 12/29/20 History fluoxetine 20 mg capsule 1 cap PO DAILY 10/29/20 12/29/20 History folic acid 1 mg tablet 1 tab PO DAILY 10/29/20 12/29/20 History lisinopril 5 mg tablet 1 tab PO DAILY 10/29/20 12/29/20 History quetiapine 100 mg tablet 1.5 tab PO BEDTIME 10/29/20 12/29/20 History risperidone 4 mg tablet 1 tab PO DAILY 10/29/20 12/29/20 History trazodone 100 mg tablet 1.5 - 2 tab PO BEDTIME 10/29/20 12/29/20 History ergocalciferol (vitamin D2) 1,250 1 cap PO QWEEK 11/18/20 12/29/20 History mcg (50,000 unit) capsule Allergies Allergy/AdvReac Type Severity Reaction Status Date / Time codeine Allergy Nausea and Verified 12/11/20 12:04 Vomiting Exam Vital signs: Vital Signs Temp 98.8 F 12/29/20 13:13 Pulse 48 L 12/29/20 13:13 Resp 14 12/29/20 13:13 BP 138/58 L 12/29/20 13:13 Pulse Ox 98 12/29/20 13:13 Intake & Output 12/28/20 12/29/20 12/29/20 18:59 06:59 18:59 Other: Weight 55.9 kg [place] Weight in Grams 20077 Weight 55.9 kg Body Mass Index 21.8 - Constitutional Present: no acute distress - Routine HEENT Exam Head: Present: normal inspection Eye: Present: normal appearance ENT: Present: mucous membranes moist - Routine Neck Exam Present: full ROM - Routine Respiratory Exam Present: CTAB - Routine Cardiovascular Exam Cardiovascular: Present: RRR, S1, S2 - Routine Abdominal Exam Present: soft, nontender - Routine Rectal Exam Patient deferred: digital exam - Routine Extremities Exam Present: nontender - Routine Back/Spine/Pelvis Exam Back/Spine: Present: full ROM - Routine Skin Exam Present: intact - Routine Neurological Exam Present: alert, oriented X3 - Routine Psychiatric Exam Present: normal affect Data - Labs CBC & Chem 7: 11/18/20 11:18 11/18/20 11:18 Labs: 11/18/20 11:18 Complete Blood Count Auto Diff Routine Comprehensive Met. Panel Routine LDH [Lactate Dehydrogenase] Routine Laboratory Last Values WBC 10.5 X10*3/uL (4.8-10.8) 11/18/20 11:18 RBC 4.19 X10*6/uL (4.20-5.50) L 11/18/20 11:18 Hgb 12.4 g/dl (12.0-16.0) 11/18/20 11:18 Hct 38.9 % (37-47) 11/18/20 11:18 MCV 92.8 fL (80-98) 11/18/20 11:18 MCH 29.6 pg (27.0-33.0) 11/18/20 11:18 MCHC 31.9 g/dl (31.0-35.0) 11/18/20 11:18 RDW 14.2 % (11.0-16.0) 11/18/20 11:18 Plt Count 297 X10*3/uL (160-400) 11/18/20 11:18 MPV 10.4 fL (9.4-12.3) 11/18/20 11:18 Immature Gran % (Auto) 0.3 % (0.0-0.4) 11/18/20 11:18 Neut % (Auto) 60.9 % (45-73) 11/18/20 11:18 Lymph % (Auto) 29.8 % (20-40) 11/18/20 11:18 [place] % (Auto) 5.0 % (2-11) 11/18/20 11:18 Eos % (Auto) 3.6 % (0-4) 11/18/20 11:18 Baso % (Auto) 0.4 % (0-2) 11/18/20 11:18 Lymph # (Auto) 3.1 X10*3/uL (1.2-4.9) 11/18/20 11:18 [place] # (Auto) 0.5 X10*3/uL (0.1-1.2) 11/18/20 11:18 Eos # (Auto) 0.4 X10*3/uL (0.0-0.4) 11/18/20 11:18 Baso # (Auto) 0.0 X10*3/uL (0.0-0.2) 11/18/20 11:18 Abs Immat Gran (auto) 0.03 X10*3/uL (0.00-0.03) 11/18/20 11:18 Absolute Neuts (auto) 6.4 X10*3/uL (2.0-8.3) 11/18/20 11:18 Absolute Nucleated RBC 0.000 X10*3/uL (0.0-0.012) 11/18/20 11:18 Nucleated RBC % (auto) 0.0 /100WBC (0.0-0.2) 11/18/20 11:18 Sodium 140 mmol/L (135-145) 11/18/20 11:18 Potassium 5.2 mmol/L (3.3-5.1) H D 11/18/20 11:18 Chloride 108 mmol/L (96-108) 11/18/20 11:18 Carbon Dioxide 24 mmol/L (22-29) 11/18/20 11:18 Anion Gap 13 (12-20) 11/18/20 11:18 BUN 20 mg/dL (9-16) H D 11/18/20 11:18 Creatinine 0.87 mg/dL (0.5-1.4) 11/18/20 11:18 Estim Creat Clear Calc 62.6 11/18/20 11:18 Estimated GFR > 60 11/18/20 11:18 Random Glucose 104 mg/dL (60-115) 11/18/20 11:18 Calcium 9.8 mg/dL (8.4-10.2) D 11/18/20 11:18 Total Bilirubin 0.4 mg/dL (0.0-1.0) 11/18/20 11:18 AST 12 U/L (5-31) D 11/18/20 11:18 ALT 13 U/L (0-31) 11/18/20 11:18 Alkaline Phosphatase 118 U/L (39-117) H D 11/18/20 11:18 Lactate Dehydrogenase 140 U/L (122-220) 11/18/20 11:18 Total Protein 7.2 g/dL (6.5-8.0) 11/18/20 11:18 Albumin 4.5 g/dL (3.5-5.0) 11/18/20 11:18 Progress Note: A/P (1) Parotid mass Status: Acute Assessment and plan: DATABASE: CHRISSY 9.8, Alb 4.5. LFTs: 0.4/118/12/13. LDH 140. This is a pleasant 50-year-old lady, with a history of IV drug abuse. She presented to the hospital on 10/29 with mental status changes. Was noted to have multiple brain infarcts. She was incidentally noted was a left parotid mass. That has grown over time. That does appear to be rather suspicious appearing. 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 I reviewed the imaging with the radiologist. He felt the biopsy was feasible. However the patient signed out AMA. She came a couple of weeks ago. Unfortunately the biopsy has not been scheduled. I set up the biopsy, under CT scan guidance. It was done on 12/17. Pathology revealed: No malignancy was identified. Consistent with Warthin's tumor. Specimen consisting mostly of small mature appearing lymphocytes and admixed flat sheets of benign appearing onco sites. No features of malignancy are identified. She will need surgical resection as a next step. PLAN: I will refer her for further surgical/ENT consultation, to Dr. Yonatan Gardner. She will return in a couple of months for a follow-up. Thank you, CC: Salome. Dr. Yonatan Gardner. - Time Spent With Patient Time Spent with Patient (in minutes): 30
== END | disposition home or self-care (01) ==
LOC: HO.ONC 11-18 09:41
PROVIDERS: Visit Provider Internal Medicine Medical Oncology
DX: K11.8 Other diseases of salivary glands (principal); Z86.73 Personal history of transient ischemic attack (TIA), and cerebral infarction without residual deficits; Z79.82 Long term (current) use of aspirin
CPT/HCPCS: 36415; 80053; 83615; 85025; 99214